=== PATIENT | female | born 1940 | race Caucasian/White ===

== ENCOUNTER 2017-08-21 12:43 | Emergency (ER) | payer MEDICARE, BC ==
[~2017-08-21] VITALS: Ht 170.2 cm; Wt 90.7 kg
[~2017-08-21 12:43] MED LIST: LASIX40 MG PO; METOPROLOL SUCC50 MG PO; MONTELUKAST SOD10 MG PO; PHENTERMINE H37.5 MG PO; POTASSIUM CHLO10 ME1 PO
--- OUTSIDE RECORDS SUMMARY | 2017-08-21 12:46 | XMS REPORT | Clinical Summary ---
Author Author [facility] Organization [facility] Address Unknown Phone Unavailable Care Team Providers Care Oil Process [place] Name Role Phone Maggie Barnes MD PCP Allergies Active Allergy Reactions Severity Noted Date Comments No Known Drug Allergies Other (See Comments) 08/04/2015 Current Medications Prescription Sig. Disp. Refills Start End Date Status Date metoprolol succinate XL Take 50 mg by mouth Active (TOPROL-XL) 50 mg 24 hr daily. tablet potassium chloride Take 10 mEq by mouth 2 Active (K-DUR,KLOR-CON) 10 MEQ (two) times a day. CR tablet PHENTERMINE HCL Take 37.5 mg by mouth Active (PHENTERMINE ORAL) every other day. losartan (COZAAR) 25 MG Take 25 mg by mouth Active tablet daily. furosemide (LASIX) 40 mg Take 40 mg by mouth 2 Active tablet (two) times a day. enoxaparin (LOVENOX) 30 Inject 0.3 mL (30 mg 9 mL 0 07/24/19 Active mg/0.3 mL syringe total) under the skin 18 18 daily for 30 days. ferrous sulfate 325 (65 Take 1 tablet (325 mg 60 tablet 0 07/24/19 08/23/19 Active FE) MG tablet total) by mouth 2 (two) 18 18 times a day with meals for 30 days. sennosides-docusate Take 2 tablets by mouth 2 120 tablet 0 07/24/19 08/23/19 Active sodium (SENOKOT-S) 8.6-50 (two) times a day for 30 18 18 mg per tablet days. polyethylene glycol Take 17 g by mouth 2 60 packet 0 07/24/19 20 Active (MIRALAX) 17 gram packet (two) times a day for 30 18 18 days. bisacodyl (DULCOLAX) 5 mg Take 1 tablet (5 mg 30 tablet 0 07/24/19 08/23/19 Active EC tablet total) by mouth 2 (two) 18 18 times a day as needed for constipation for up to 30 days. bisacodyl (DULCOLAX) 10 Insert 1 suppository (10 30 0 07/24/1908/23 Active mg suppository mg total) into the rectum suppository 18 18 daily as needed for constipation for up to 30 days. cephalexin (KEFLEX) 500 Take 1 capsule (500 mg 20 capsule 0 08/20/19 08/25/19 Active MG capsule total) by mouth 4 (four) 18 18 times a day for 5 days. furosemide (LASIX) 40 MG Take 40 mg by mouth once 2 09/29/19 Discontin tablet daily. 16 17 ued famotidine (PEPCID) 20 MG Take 1 tablet (20 mg 60 tablet 0 02/03/20 03/04/20 tablet total) by mouth 2 (two) 17 17 times a day for 30 days. aspirin (ECOTRIN) 81 MG Take 1 tablet (81 mg 30 tablet 0 03/12/20 enteric coated tablet total) by mouth daily for 17 17 30 days. benzonatate (TESSALON) Take 1 capsule (100 mg 20 capsule 0 04/20/20 05/20/20 100 MG capsule total) by mouth every 6 17 17 (six) hours as needed for cough for up to 30 days. aspirin (ECOTRIN) 81 MG Take 1 tablet (81 mg 30 tablet 0 04/20/20 enteric coated tablet total) by mouth daily for 17 17 30 days. furosemide (LASIX) 40 mg Take 1 tablet (40 mg 60 tablet 0 04/20/20 05/20/20 tablet total) by mouth 2 (two) 17 17 times a day for 30 days. aspirin (ECOTRIN) 325 MG Take 325 mg by mouth 2 07/27/19 Discontin enteric coated tablet (two) times a day. 18 ued ferrous gluconate Take 324 mg by mouth 2 07/27/19 Discontin (FERGON) 324 MG tablet (two) times a day. 18 ued Active Problems Problem Noted Date Postoperative infection 08/15/2017 Chest pain 08/02/2017 Fracture of left tibia 07/22/2017 Congestive heart failure 04/16/2017 CAD (coronary artery disease) 03/11/2017 Aneurysm of thoracic aorta 08/04/2015 Aortic valve disorder 08/04/2015 Bronchitis 08/04/2015 Congenital insufficiency of aortic valve 08/04/2015 Depression 08/04/2015 Disorder of rotator cuff 08/04/2015 Dyspnea 08/04/2015 Environmental allergies 08/04/2015 Essential hypertension 08/04/2015 Hiatal hernia 08/04/2015 Hypokalemia 08/04/2015 Orthopnea 08/04/2015 Osteoporosis 08/04/2015 Skin lesion 08/04/2015 Encounters Date Type Specialty Care Team Description 08/15/2017 [facility] Orthopedic Surgery Mitesh Schrader DO Postoperative infection, - Encounter Denisha Garber MD initial encounter 08/20/2017 (Primary Dx) 08/05/2017 Telephone Gastroenterology Vannesa High RN 08/02/2017 Emergency General Internal Medicine Ping Chavis-Iris Simmons MD Chest pain, unspecified - Khai Mo MD type (Primary Dx); 08/05/2017 Thoracic aortic aneurysm without rupture 07/21/2017 [facility] Orthopedic Surgery Marvin Barrios MD - Encounter 07/27/2017 07/21/2017 Anesthesia Orthopedic Surgery Anni King MD Event 07/21/2017 Procedure Pass Orthopedic Surgery 07/21/2017 Surgery Orthopedic Surgery Marvin Barrios MD ORIF TIBIAL FRACTURE 07/10/2017 Telephone Gastroenterology Emil Whitaker MD 05/05/2017 Patient Quality Va Ann, RN Outreach 05/05/2017 Telephone Cardiology Tray Penn, AMADO condition (check on patient condition) 04/27/2017 Telephone Cardiology Tray Penn, AMADO Appointment 04/21/2017 Patient Quality Oksana Jimenez RN Outreach 04/20/2017 Telephone Internal Medicine Kari Edgar MA 04/20/2017 Orders Only Cardiology See Keys Acute on chronic AMADO Campos diastolic heart failure (Primary Dx) 04/17/2017 Orders Only Quality Carolee Dean Congestive heart failure, unspecified congestive heart failure chronicity, unspecified congestive heart failure type (Primary Dx) 04/16/2017 Hospital Cardiology Niurka Stevenson MD Congestive heart failure, - Encounter You Lopez MD unspecified congestive 04/21/2017 Omid Tobin, heart failure chronicity, MD unspecified congestive Kiko Chavira MD heart failure type (Primary Dx); Diarrhea, unspecified type; Dyspnea, unspecified type; Chest pain in adult 04/02/2017 Telephone Internal Medicine Donovan Barnes MD 03/11/2017 Hospital Cardiology Ifeanyi Crystal MD Abnormal cardiovascular - Encounter stress test 03/12/2017 03/11/2017 Procedure Pass Procedural Cardiology 03/11/2017 Surgery Procedural Cardiology Ifeanyi Crystal MD Cv selective coronary angiography [05316 (CPT )] 02/02/2017 Emergency Emergency Medicine Braden Dunne MD Hiatal hernia (Primary Dx) 12/22/2016 Lab Lab Ifeanyi Crystal MD Shortness of breath (Primary Dx); Essential hypertension, malignant; Atherosclerosis of [place] coronary artery, angina presence unspecified, unspecified whether [place] or transplanted heart 12/22/2016 Hospital Procedural Cardiology Ifeanyi Crystal MD Edema, unspecified type Encounter 12/19/2016 Transcribe Access Ifeanyi Crystal MD Edema, unspecified type Orders (Primary Dx) after 08/20/2016 Immunizations Name Dates Previously Given Next Due FLUCELVAX QUAD PF (0.5mL 03/12/2017 syringe) FLUZONE HIGH-DOSE PF 04/25/2015 Pneumococcal Conjugate 12/19/2014 13-Valent Pneumococcal 06/29/2010 Polysaccharide Family History Medical History Relation Name Comments Breast cancer Mother Hypertension Mother Stroke Mother Breast cancer Sister Relation Name Status Comments Mother Sister Social History Tobacco Use Types Packs/Day Years Used Date Former Smoker Quit: 06/29/1971 Smokeless Tobacco: Never Used Tobacco Cessation: Counseling Given: No Alcohol Use Drinks/Week oz/Week Comments No 2 Glasses of 1.2 a month wine Sex Assigned at Date Recorded Not on file Last Filed Vital Signs Vital Sign Reading Time Taken Blood Pressure 138/72 08/20/2017 3:42 AM [employer]ICK WORK[employer] Pulse 69 08/20/2017 3:42 AM [employer]ICK WORK[employer] Temperature 36.3 C (97.3 F) 08/20/2017 3:42 AM [employer]ICK WORKER Respiratory Rate 16 08/20/2017 3:42 AM [employer] STICK WORKER Oxygen Saturation 93% 08/20/2017 3:42 AM H[employer]ICK WORKER Inhaled Oxygen - - Concentration Weight 96.2 kg (212 lb) 08/02/2017 4:30 PM H[employer] STICK WORKER Height 170.2 cm (5' 7") 08/15/2017 6:10 PM [employer]ICK WORKER Body Mass Index 33.2 08/02/2017 4:30 PM H[employer] STICK WORKER Plan of Treatment Health Maintenance Due Date Last Done Comments ZOSTER VACCINE 2002 MAMMOGRAM 11/01/2011 10/31/2009, 08/02/2008, 08/02/2008 PNEUMOCOCCAL Completed 06/29/2010 POLYSACCHARIDE VACCINE AGE 65 AND OVER PNEUMOCOCCAL-13 Completed 12/19/2014 INFLUENZA VACCINE Completed 03/12/2017, 04/25/2015 Implants Implanted Type Area Jai Alai Player Device Expiration Model / Identifier Date Serial / Lot 3.5mm Lcp Medial Proximal Tibia IPM Left: SYNTHES TRAUMA [id number] / Plate 4h/Left 93mm - [id number] IMPLANT Tibia / Implanted: Qty: 1 on 07/21/2017 by DEVICES Marvin Barrios MD Screw Bone Vinay Slf-Tap W/ Sm Hxgnl Orthopedic Left: SYNTHES TRAUMA 204 830 / Socket Ss 3.5x30mm - [id number] Trauma Tibia AND RECON / Implanted: Qty: 3 on 07/21/2017 by Implants Marvin Barrios MD Screw Bone Concl P-Thrd Slf-Tap Ss Orthopedic Left: SYNTHES TRAUMA 212 425 / 3.5x65mm - [id number] Trauma Tibia AND RECON / Implanted: Qty: 2 on 07/21/2017 by Implants Marvin Barrios MD Screw Bone Lkng Slf-Tap W/ Strdrv Orthopedic Left: SYNTHES TRAUMA 212 121 / Recs Ss 3.5x50mm - [id number] Trauma Tibia AND RECON / Implanted: Qty: 1 on 07/21/2017 by Implants Marvin Barrios MD Screw Bone Lkng Slf-Tap W/ Strdrv Orthopedic Left: SYNTHES TRAUMA 212 124 / Recs Ss 3.5x60mm - [id number] Trauma Tibia AND RECON / Implanted: Qty: 1 on 07/21/2017 by Implants Marvin Barrios MD Screw Bone Lkng Slf-Tap W/ Strdrv Orthopedic Left: SYNTHES TRAUMA 212 125 / Ss 3.5x65mm - [id number] Trauma Tibia AND RECON / Implanted: Qty: 1 on 07/21/2017 by Implants Marvin Barrios MD Reprocessed, Synthes, 2.8mm X Surgical N/A: N/A ISABEL 324.214 / 200mm, 100mm Calibration, Synthes Drills & SUSTAINABILITY / Drill Bit, Quick Coupling Accessorie SOLUTIONS Implanted: Qty: 1 on 07/21/2017 by s (FORMERLY Marvin Barrios MD ASCENT) Immobilizer Knee Countoured Foam Xl Surgical N/A: N/A DEROYAL [id number] / Canvas 24in - [id number] Implants; INDUSTRIES / Implanted: Qty: 1 on 07/21/2017 by Expanders; Marvin Barrios MD Extenders; Surgical Wires Explanted Type Area Jai Alai Player Device Expiration Model / Identifier Date Serial / Lot Screw Bone Vinay Slf-Tap W/ Sm Hxgnl Orthopedic N/A: N/A SYNTHES TRAUMA 204 824 / Socket Ss 3.5x24mm - [id number] Trauma AND RECON / Implanted: 07/21/2017 (Quantity not Implants on file) Explanted: Qty: 1 on 07/21/2017 Procedures Procedure Name Priority Date/Time Associated Diagnosis Comments HC CATH DUAL LUMEN PICC Routine 08/17/2017 Results for this 11:59 AM H[employer] STICK WORKER procedure are in the results section. HC US GUIDED VASCULAR Routine 08/17/2017 Results for this ACCESS 11:59 AM H[employer] STICK WORKER procedure are in the results section. HC CVL PICC INSERT 5 YRS Routine 08/17/2017 Results for this OR > 11:59 AM H[employer] STICK WORKER procedure are in the results section. ECHOCARDIOGRAM 2D Routine 08/03/2017 Results for this COMPLETE W MMODE SPECTRAL 7:00 AM H[employer] STICK WORKER procedure are in the COLOR DOPPLER (61411) results section. WY AN ELECTIVE Routine 07/21/2017 ENDOTRACHEAL AIRWAY 3:32 PM [employer]ICK WORKER Procedure Note - Jen Lemos CRNA - 07/21/2017 3:26 PM H[employer] STICK WORKER Airway Date/Time: 07/21/2017 2:47 PM Performed by: JEN LEMOS Authorized by: TONYA FLETCHER Location: OR Urgency: Elective Difficult Airway: No Preoxygena isreal with 100% O2: Yes C-spine Precaution s Maintained Throughout : Yes Mask Ventilatio n: Easy mask Final Airway Type: Endotrache al airway Final Endotrache al Airway: ETT Cuffed: Yes Technique Used: Direct laryngosco py Devices/Me thods Used in Placement: Intubatin g stylet Insertion Site: Oral Blade Type: Selina Laryngosco pe Blade/Vide olaryngosc ope Blade Size: 3 ETT Size (mm): 7.0 Cuff at minimum occlusion pressure: Yes Measured from: Lips ETT to Lips (cm): 21 Placement Verified by: CO2 detection and direct visualizat ion Laryngosco pic view: Grade I - full view of glottis Rapid Sequence Induction (RSI): No Number of Attempts at Approach: 1 ORIF TIBIAL FRACTURE 07/21/2017 fracture of left knee 2:00 PM H[employer] STICK WORKER CONSULT CARDIAC REHAB Routine 04/21/2017 PHASE 1 11:22 AM CDT CV STRESS TEST NUCLEAR Routine 04/21/2017 Results for this CARDIO 9:28 AM CDT procedure are in the results section. ECHOCARDIOGRAM 2D Routine 04/17/2017 Results for this COMPLETE W MMODE SPECTRAL 10:33 AM CDT procedure are in the COLOR DOPPLER (83271) results section. CV SELECTIVE CORONARY Routine 03/11/2017 Abnormal cardiovascular Results for this ANGIOGRAPHY 1:57 PM CDT stress test procedure are in the results section. after 08/20/2016 Results * Smear review (08/20/2017 5:00 AM) Only the most recent of 12 results within the time period is included. Component Value Ref Range Platelet slide review Nghia adequate Ovalocytes Moderate Specimen Performing Laboratory [facility] DEPARTMENT OF PATHOLOGY AND GENOMIC MEDICINE [address] [place] [address] * CBC with platelet and differential (08/20/2017 5:00 AM) Only the most recent of 23 results within the time period is included. Component Value Ref Range WBC 6.55 4.50 - 11.00 k/uL RBC 4.46 4.20 - 5.50 m/uL HGB 10.9 (L) 12.0 - 16.0 g/dL HCT 37.8 37.0 - 47.0 % MCV 84.8 82.0 - 100.0 fL MCH 24.4 (L) 27.0 - 34.0 pg MCHC 28.8 (L) 31.0 - 37.0 g/dL RDW - SD SEE COMMENT 37.0 - 55.0 fL Comment: Footnote--------- Unable to report RDW due to abnormal RBC distribution. MPV 11.0 8.8 - 13.2 fL Platelet count 251 150 - 400 k/uL Nucleated RBC 0.00 /100 WBC Neutrophils 57.7 39.0 - 69.0 % Lymphocytes 26.0 25.0 - 45.0 % Monocytes 12.1 (H) 0.0 - 10.0 % Eosinophils 3.2 0.0 - 5.0 % Basophils 0.8 0.0 - 1.0 % Immature granulocytes 0.2Comment: "Immature granulocytes" 0.0 - 1.0 % (promyelocytes, myelocytes, metamyelocytes) Specimen Performing Laboratory Blood [facility] DEPARTMENT OF PATHOLOGY AND [place] [id number] * Estimated GFR (08/20/2017 4:00 AM) Only the most recent of 26 results within the time period is included. Component Value Ref Range GFR Non Af Amer >90 mL/min/1.73 m2 GFR Af Amer >90 mL/min/1.73 m2 Comment: Chronic kidney disease: <60 mL/min/1.73m2 Kidney failure: <15 mL/min/1.73m2 The estimated GFR is calculated from the IDMS-traceable Modification of Diet in Renal Disease Equation. The accuracy of the calculation is poor when the creatinine is normal. Calculated values >90 mL/min/1.73m2 are not reported. This equation has not been validated in children (<18 years), women, the elderly (>70 years), or ethnic groups other than Caucasians and Americans. Specimen Performing Laboratory Plasma specimen [facility] DEPARTMENT OF PATHOLOGY AND GENOMIC MEDICINE [address] [place] [address] * Magnesium level (08/20/2017 4:00 AM) Only the most recent of 10 results within the time period is included. Component Value Ref Range Magnesium 2.1 1.6 - 2.4 mg/dL Specimen Performing Laboratory Plasma specimen [facility] DEPARTMENT OF PATHOLOGY AND [address] [address] * Basic metabolic panel (08/20/2017 4:00 AM) Only the most recent of 19 results within the time period is included. Component Value Ref Range Sodium 143 135 - 148 mEq/L Potassium 3.9 3.5 - 5.0 mEq/L Chloride 99 98 - 112 mEq/L CO2 31 24 - 31 mEq/L Anion gap 13 7 - 15 mEq/L Comment: Starting from September , anion gap calculation no longer incorporates potassium. Please note the change. BUN 18 8 - 23 mg/dL Creatinine 0.5 0.5 - 0.9 mg/dL Glucose 73 65 - 99 mg/dL Calcium 9.4 8.8 - 10.2 mg/dL Specimen Performing Laboratory Plasma specimen [facility] DEPARTMENT OF PATHOLOGY AND GENOMIC MEDICINE [address] [place] [address] * XR Knee 3 Vw Left (08/19/2017 7:06 PM) Only the most recent of 2 results within the time period is included. Specimen Performing Laboratory [facility] [address] [place] [address] Narrative EXAMINATION:XR KNEE 3 VW LEFT CLINICAL HISTORY:s p ORIF left tibia COMPARISON:None available at this time. IMPRESSION: Extensive postoperative changes involving the proximal tibia, distal femur and patella. There is good anatomic alignment. Old fracture of the proximal fibula with callus formation. No acute fractures present [facility]-[id number] Procedure Note Interface, Radiology Results Incoming - 08/19/2017 7:15 PM H[employer] STICK WORKER EXAMINATION: XR KNEE 3 VW LEFT CLINICAL HISTORY: s p ORIF left tibia COMPARISON: None available at this time. IMPRESSION: Extensive postoperative changes involving the proximal tibia, distal femur and patella. There is good anatomic alignment. Old fracture of the proximal fibula with callus formation. No acute fractures present [facility]-[id number] * ECG 12 lead (08/19/2017 4:06 PM) Only the most recent of 8 results within the time period is included. Component Value Ref Range Ventricular rate 69 Atrial rate 69 WY interval 204 QRSD interval 84 QT interval 398 QTC interval 426 P axis 1 74 QRS axis 1 22 T wave axis 76 EKG impression Normal sinus rhythm-Nonspecific ST and T wave abnormality-(lateral leads)-Otherwise normal ECG-In automated comparison with ECG of 15-AUG-2017 18:53,-premature atrial complexes are no longer [id number]-[id number]-[id number] change in ST segment in Lateral leads- Specimen Performing Laboratory [facility] MUSE [address] [place] [address] * Vancomycin level, trough (08/17/2017 11:40 PM) Only the most recent of 2 results within the time period is included. Component Value Ref Range Vancomycin, trough 23.9 (HH) 10.0 - 20.0 ug/mL Comment: Therapeutic Ranges: Peak 30.0 - 40.0 ug/mL Trough 10.0 - 20.0 ug/mL VANCT results called to and read back by ADAMARIS CASTILLO/Thuan at 00:53 08/18/2017 by SCL. Specimen Performing Laboratory Serum [facility] DEPARTMENT OF PATHOLOGY AND GENOMIC MEDICINE [address] [place] [address] * XR Picc Chest Portable (08/17/2017 12:27 PM) Specimen Performing Laboratory [facility] [address] [place] [address] Narrative EXAMINATION:XR PICC CHEST PORTABLE CLINICAL HISTORY:T81.4XXA Infection following a procedureinitial encounter, intermediate project manager antibiotics COMPARISON:August 15, 2017 IMPRESSION: Right PICC line courses to the right H. James. Cardiomegaly, mild vascular congestion, and basilar atelectasis. No significant pleural effusion or pneumothorax. Aorta is calcified and likely ectatic. [facility]-[id number] Procedure Note Interface, Radiology Results Incoming - 08/17/2017 12:34 PM H[employer] STICK WORKER EXAMINATION: XR PICC CHEST PORTABLE CLINICAL HISTORY: T81.4XXA Infection following a procedure initial encounter, [facility] antibiotics COMPARISON: August 15, 2017 IMPRESSION: Right PICC line courses to the right H. James. Cardiomegaly, mild vascular congestion, and basilar atelectasis. No significant pleural effusion or pneumothorax. Aorta is calcified and likely ectatic. [facility]-[id number] * PICC INSERTION (08/17/2017 11:59 AM) Narrative Gi Cherry 08/17/2017 12:18 PM PICC insertion Date/Time: 08/17/2017 12:15 PM Performed by: TYLER MERRITT Authorized by: DENISHA GARBER Consent: Consent obtained:Verbal Consent given by:Patient Risks discussed: arterial puncture, incorrect placement, nerve damage, bleeding, infection, superficial thrombus and deep vein thrombus Alternatives discussed:Delayed treatment [place] protocol: Procedure explained and questions answered to patient or proxy's satisfaction: yes Relevant documents present and verified: yes Test results available and properly labeled: yes Imaging studies available: yes Required blood products, implants, devices, and special equipment available: no Site/side marked: yes Immediately prior to procedure, a time out was called: yes Patient identity confirmed:Verbally with patient, arm band, provided demographic data and hospital-assigned identification number Pre-procedure details: Hand hygiene: Hand hygiene performed prior to insertion Sterile barrier technique: All elements of maximal sterile technique followed Skin preparation:2% chlorhexidine Skin preparation agent: Skin preparation agent completely dried prior to procedure Anesthesia (see MAR for exact dosages): Anesthesia method:Local infiltration Local anesthetic:Lidocaine 1% w/o epi Route of administration:Subcutaneous PICC Line Placement Details (Will create an LDA): Patient position:Flat Indication:Known intermediate project manager IV therapy Location:Right brachial Device Type:Non-valved Catheter size:5 Fr PICC Characteristics: Catheter Brand:Angiodynamic Powerpicc External Catheter Length (cm):2 Internal Catheter Length (cm):42 Total Catheter Length (cm):44 Catheter Lot Number:[id number] Catheter Expiration Date:03/28/2019 Procedure Details: Landmarks identified: yes Ultrasound guidance: yes Sterile ultrasound techniques: Sterile gel and sterile probe covers were used Number of attempts:1 Number of PICC kits used during procedure:1 Purpose of procedure:PICC Placement Successful PICC Placement: Yes Patency/Placement:Flushes without difficulty, flushed with 10 mL normal saline, positive blood return, x-ray placement verified and injection cap placed PICC placed utlizing ultrasound-guided Modified Seldinger Technique: Yes Dressing/Securement:Catheter securement device and antimicrobial dressing applied Blood Loss Amount:Less than 20 mL Post-Procedure Details: Post-procedure:Dressing applied Tip placement confirmed by chest x-ray: Yes Patient tolerance of procedure:Tolerated well, no immediate complications * Lactic acid level, SEPSIS - Now and repeat 2x every 3 hours (08/16/2017 2:00 AM) Only the most recent of 3 results within the time period is included. Component Value Ref Range Lactic acid 0.8 0.5 - 2.2 mmol/L Specimen Performing Laboratory Blood [facility] DEPARTMENT OF PATHOLOGY AND GENOMIC MEDICINE [address] [place] [address] * Troponin (08/16/2017 2:00 AM) Only the most recent of 13 results within the time period is included. Component Value Ref Range Troponin <0.30 0.00 - 0.30 ng/mL Comment: 0.30 - 1.49 ng/ml May indicate increased risk of acute coronary syndrome. >=1.5 ng/ml Consistent with acute myocardial infarction. The diagnostic value of a single normal or non-diagnostic result is questionable. Serial samples at 2-6 hour intervals are required to rule out acute myocardial injury. Specimen Performing Laboratory Blood [facility] DEPARTMENT OF PATHOLOGY AND [address] [address] * Partial thromboplastin time, activated (08/16/2017 2:00 AM) Only the most recent of 4 results within the time period is included. Component Value Ref Range PTT 31.1 23.0 - 36.0 sec Comment: PTT therapeutic range for unfractionated heparin is 61.0-112.0 seconds which corresponds to Anti-Xa 0.3-0.7 U/ml. Specimen Performing Laboratory Blood [facility] DEPARTMENT OF PATHOLOGY AND [address] [address] * Prothrombin time with INR (08/16/2017 2:00 AM) Only the most recent of 6 results within the time period is included. Component Value Ref Range Prothrombin time 13.8 12.0 - 15.0 sec INR 1.0 Comment: The International Normalized Ratio (INR) is a therapeutic monitoring tool for patients who are stable on oral anticoagulant therapy. An INR of 2.0-3.0 is suggested for deep vein thrombosis/pulmonary embolism. Specimen Performing Laboratory Blood [facility] DEPARTMENT OF PATHOLOGY AND [address] [address] * CT Angiogram Pe Chest (08/15/2017 9:40 PM) Only the most recent of 3 results within the time period is included. Specimen Performing Laboratory [address] [address] Narrative EXAMINATION: CT ANGIOGRAM PE CHEST CLINICAL HISTORY: r o PE TECHNIQUE: CT angiographic images of the chest were obtained during intravenous administration of iodinated contrast. Computerized reformatted images and 3-D MIP images were also obtained and archived (CT pulmonary embolus protocol). CT imaging was performed with iterative reconstruction technique and/or automated exposure control to reduce radiation dose. COMPARISON: 08/03/2017 IMPRESSION: Mild bibasilar atelectasis. No consolidations, effusions, or pneumothorax. Heart size is normal. Coronary artery calcifications are seen. No mediastinal or hilar lymphadenopathy. The main pulmonary artery is dilated to 4.4 cm, compatible with pulmonary arterial hypertension. No large main branch or saddle region embolus is seen. Evaluation of segmental and subsegmental branches is significantly limited secondary to mixing artifact and motion. Short-term follow-up evaluation or VQ scan can be performed , since a distal pulmonary embolus cannot be excluded. Ascending aortic aneurysm is identified measuring 4.8 cm. Common origin is seen of left common carotid artery and right brachiocephalic artery. No dissection or pseudoaneurysm. Tortuous appearance of the thoracic aorta. Simple cyst is seen of right kidney. Large hiatal hernia. No acute osseous abnormalities. Conclusion: Limited evaluation. No large main branch or saddle region embolus is seen. Evaluation of segmental and subsegmental branches is significantly limited secondary to mixing artifact and motion. Short-term follow-up evaluation or VQ scan can be performed, since a distal pulmonary embolus cannot be excluded. Ascending aortic aneurysm is identified, measuring up to 4.8 cm. Large hiatal hernia, containing much of the stomach. [facility]-[id number] Procedure Note [facility], Radiology Results Incoming - 08/15/2017 10:02 PM H[employer] WORK[employer] EXAMINATION: CT ANGIOGRAM PE CHEST CLINICAL HISTORY: r o PE TECHNIQUE: CT angiographic images of the chest were obtained during intravenous administration of iodinated contrast. Computerized reformatted images and 3-D MIP images were also obtained and archived (CT pulmonary embolus protocol). CT imaging was performed with iterative reconstruction technique and/or automated exposure control to reduce radiation dose. COMPARISON: 08/03/2017 IMPRESSION: Mild bibasilar atelectasis. No consolidations, effusions, or pneumothorax. Heart size is normal. Coronary artery calcifications are seen. No mediastinal or hilar lymphadenopathy. The main pulmonary artery is dilated to 4.4 cm, compatible with pulmonary arterial hypertension. No large main branch or saddle region embolus is seen. Evaluation of segmental and subsegmental branches is significantly limited secondary to mixing artifact and motion. Short-term follow-up evaluation or VQ scan can be performed , since a distal pulmonary embolus cannot be excluded. Ascending aortic aneurysm is identified measuring 4.8 cm. Common origin is seen of left common carotid artery and right brachiocephalic artery. No dissection or pseudoaneurysm. Tortuous appearance of the thoracic aorta. Simple cyst is seen of right kidney. Large hiatal hernia. No acute osseous abnormalities. Conclusion: Limited evaluation. No large main branch or saddle region embolus is seen. Evaluation of segmental and subsegmental branches is significantly limited secondary to mixing artifact and motion. Short-term follow-up evaluation or VQ scan can be performed, since a distal pulmonary embolus cannot be excluded. Ascending aortic aneurysm is identified, measuring up to 4.8 cm. Large hiatal hernia, containing much of the stomach. [facility]-[id number] * CT Lower Extremity Wo Contrast Left (08/15/2017 9:40 PM) Specimen Performing Laboratory [facility] [address] [place] [address] Narrative Examination: CT LOWER EXTREMITY WO CONTRAST LEFT Clinical history: post op infection Comparison: 11/07/2009 Technique: CT left lower extremity without contrast. Coronal and sagittal reconstructions were created and reviewed. 3-D bony reconstructions were created and reviewed. Impression: Patient is status post repair of chronic fracture of the femur, with casa and screws in place. Postoperative appearance of the patella is seen. Plate and screw construct is seen of the proximal diaphysis of the tibia, fixing lateral tibial plateau fracture. Some callus formation is seen about the fracture site of the tibia, without complete union. Old fracture of the proximal diaphysis of the fibula is identified. Fusion of the distal tibia and talus is seen. Osteopenia of the osseous structures is identified. Subcutaneous edema and skin thickening is seen of the left lower extremity anteriorly, and correlation for cellulitis is recommended. No fluid collections are identified. Some ulceration is seen at the skin surface. Marked skin thickening and edema is seen of the left ankle and foot. Diffuse fatty replacement and atrophy of the left lower extremity musculature is identified. Conclusion: No acute fractures or dislocations. No osseous destruction is seen to suggest osteomyelitis on this exam. Marked subcutaneous edema and skin thickening is seen of the left ankle and foot. Additional skin thickening and edema is seen of the soft tissues anterior to the tibia, with areas of ulceration. This findings are compatible with cellulitis. No fluid collections are seen. [facility]-[id number] Procedure Note Interface, Radiology Results - 08/15/2017 10:45 PM [employer] Examination: CT LOWER EXTREMITY WO CONTRAST LEFT Clinical history: post op infection Comparison: 11/07/2009 Technique: CT left lower extremity without contrast. Coronal and sagittal reconstructions were created and reviewed. 3-D bony reconstructions were created and reviewed. Impression: Patient is status post repair of chronic fracture of the femur, with casa and screws in place. Postoperative appearance of the patella is seen. Plate and screw construct is seen of the proximal diaphysis of the tibia, fixing lateral tibial plateau fracture. Some callus formation is seen about the fracture site of the tibia, without complete union. Old fracture of the proximal diaphysis of the fibula is identified. Fusion of the distal tibia and talus is seen. Osteopenia of the osseous structures is identified. Subcutaneous edema and skin thickening is seen of the left lower extremity anteriorly, and correlation for cellulitis is recommended. No fluid collections are identified. Some ulceration is seen at the skin surface. Marked skin thickening and edema is seen of the left ankle and foot. Diffuse fatty replacement and atrophy of the left lower extremity musculature is identified. Conclusion: No acute fractures or dislocations. No osseous destruction is seen to suggest osteomyelitis on this exam. Marked subcutaneous edema and skin thickening is seen of the left ankle and foot. Additional skin thickening and edema is seen of the soft tissues anterior to the tibia, with areas of ulceration. This findings are compatible with cellulitis. No fluid collections are seen. [facility]-[id number] * CT Abdomen Pelvis Wo Contrast (08/15/2017 9:40 PM) Specimen Performing Laboratory [facility] [address] [place] [address] ABDOMEN PELVIS WO CONTRAST CLINICAL INDICATION:abdominal pain TECHNIQUE: Multidetector CT of the abdomen and pelvis was performed following intravenous administration of iodinated contrast with multiplanar reformats. CT scans are performed using radiation dose reduction techniques (iterative reconstruction and/or automated exposure control). Technical factors are evaluated and adjusted to ensure appropriate moderation of exposure. Automated dose management technology is applied to adjust radiation exposure while achieving a diagnostic quality image. COMPARISON:CT 09/01/2011. FINDINGS: Lung bases:Reported separately. Liver:Normal. Gallbladder and biliary:Gallbladder is normally distended. Common bile duct is not dilated. Pancreas:Severely atrophic with fatty replacement. Spleen:Normal. Gastrointestinal: Large hiatal hernia. Sigmoid diverticulosis. Large and small bowel are normal in caliber. Appendix is not visualized. No focal inflammatory changes within the right lower quadrant of the abdomen. Adrenals:Normal. Kidneys and ureters: Renal cysts/hypodensities measuring up to 3.1 cm in the right kidney, incompletely characterized. No hydronephrosis. Urinary bladder:Normal. Lymph nodes:No enlarged lymph nodes in the abdomen or pelvis. Peritoneum:No ascites or free air. Vascular:Moderate atherosclerotic changes of the abdominal aorta and major branch vessels. Evaluation of vessel lumens is limited due to lack of IV contrast. Reproductive organs:Uterus is absent. Unremarkable adnexae. Abdominal wall: Mild diffuse subcutaneous soft tissue edema. Severe atrophy and fatty replacement of visualized left lower extremity musculature. Bones:Diffuse osteopenia. Partially visualized hardware in the left proximal femur. Mild age-indeterminate though likely chronic compression deformities of the T12, L1, L2, L3 vertebral bodies. IMPRESSION: 1. Large hiatal hernia. 2. Colonic diverticulosis without diverticulitis. [facility]-[id number] Procedure Note [facility], Radiology Results Incoming - 08/15/2017 10:12 [address]ER CT ABDOMEN PELVIS WO CONTRAST CLINICAL INDICATION: abdominal pain TECHNIQUE: Multidetector CT of the abdomen and pelvis was performed following intravenous administration of iodinated contrast with multiplanar reformats. CT scans are performed using radiation dose reduction techniques (iterative reconstruction and/or automated exposure control). Technical factors are evaluated and adjusted to ensure appropriate moderation of exposure. Automated dose management technology is applied to adjust radiation exposure while achieving a diagnostic quality image. COMPARISON: CT 09/01/2011. FINDINGS: Lung bases: Reported separately. Liver: Normal. Gallbladder and biliary: Gallbladder is normally distended. Common bile duct is not dilated. Pancreas: Severely atrophic with fatty replacement. Spleen: Normal. Gastrointestinal: Large hiatal hernia. Sigmoid diverticulosis. Large and small bowel are normal in caliber. Appendix is not visualized. No focal inflammatory changes within the right lower quadrant of the abdomen. Adrenals: Normal. Kidneys and ureters: Renal cysts/hypodensities measuring up to 3.1 cm in the right kidney, incompletely characterized. No hydronephrosis. Urinary bladder: Normal. Lymph nodes: No enlarged lymph nodes in the abdomen or pelvis. Peritoneum: No ascites or free air. Vascular: Moderate atherosclerotic changes of the abdominal aorta and major branch vessels. Evaluation of vessel lumens is limited due to lack of IV contrast. Reproductive organs: Uterus is absent. Unremarkable adnexae. Abdominal wall: Mild diffuse subcutaneous soft tissue edema. Severe atrophy and fatty replacement of visualized left lower extremity musculature. Bones: Diffuse osteopenia. Partially visualized hardware in the left proximal femur. Mild age-indeterminate though likely chronic compression deformities of the T12, L1, L2, L3 vertebral bodies. IMPRESSION: 1. Large hiatal hernia. 2. Colonic diverticulosis without diverticulitis. [facility]-[id number] * PV duplex venous lower extremity (08/15/2017 8:30 PM) Only the most recent of 5 results within the time period is included. Specimen Performing Laboratory [facility] [address] [place] [address] Narrative Vascular Ultrasound Laboratory Lower Extremity Venous Report [id number] [place] [address] Pat.Name:ZORAIDA HSU Pat.ID:[id number] St.Date: 08/15/2017 Refer.MD:PHYSICIAN, EMERGENCY, MD Exam Time: 8:13:00 PMStudy Type:LE Venous Height:67inDOBAge:1939,77Y Sex: FEMALESonogrphr: Darinel Laws Candi Room:[facility]: [facility] - 4: [id number] Echo Event ID:[id number] Order ID:[id number] Reason for Study:Worsening redness, pain, and drainage of LLE at surgical site. s/p ORIF Tibial fracture on 07/21/2017 Race:C SUMMARY: DUPLEX SCAN OBSERVATIONS Deep VeinsSuperficial Veins RightLeft RightLeft EIVGSV (prox) Normal CFV Normal Normal (above knee) Femoral Normal GSV (dist)Not Visualized Profunda Normal (below knee) Popliteal Normal PT (prox) Not visualizedSSV PT (dist) Normal Peroneal Not Visualized LEFT: There is normal compressibility with no evidence of echogenic material noted within the lumen of the visualized veins. Colorflow and Doppler signals are normal. Limited exam due to edema and body habitus. PRELIMINARY FINDINGS 1. Normal venous duplex exam of the visualized veins. Preliminary results given to DO Mitesh @ 2039 PHYSICIAN INTERPRETATION 1.Venous examination of the left lower extremity and right groin demonstrates no evidence of venous thrombosis. Signed 08/16/2017 02:16 AM Jarod Miranda MD Procedure Note Interface, Radiology Results In - 08/16/2017 2:17 AM [facility] Vascular Ultrasound Laboratory Lower Extremity Venous Report [id number] [address] Pat.Name: ZORAIDA HSU.ID: [id number] St.Date: 08/15/2017 Refer.MD: PHYSICIAN, EMERGENCY, MD Exam Time: 8:13:00 PM Study Type:LE Venous Height: 67in Age: 11 1940,77Y Sex: FEMALE Sonogrphr: Darinel Laws RVT Room: ER Tape Vol: VB, CPT - 4: [id number] Echo Event ID:[id number] Order ID: [id number] Reason for Study:Worsening redness, pain, and drainage of LLE at surgical site. s/p ORIF Tibial fracture on 07/21/2017 Race: C SUMMARY: DUPLEX SCAN OBSERVATIONS Deep Veins Superficial Veins Right Left Right Left EIV GSV (prox) Normal CFV Normal Normal (above knee) Femoral Normal GSV (dist) Not Visualized Profunda Normal (below knee) Popliteal Normal PT (prox) Not visualized SSV PT (dist) Normal Peroneal Not Visualized LEFT: There is normal compressibility with no evidence of echogenic material noted within the lumen of the visualized veins. Colorflow and Doppler signals are normal. Limited exam due to edema and body habitus. PRELIMINARY FINDINGS 1. Normal venous duplex exam of the visualized veins. Preliminary results given to DO Mitesh @ 2039 PHYSICIAN INTERPRETATION 1. Venous examination of the left lower extremity and right groin demonstrates no evidence of venous thrombosis. Signed 08/16/2017 02:16 AM Jarod Miranda MD * Blood culture, aerobic & anaerobic (08/15/2017 8:05 PM) Only the most recent of 4 results within the time period is included. Component Value Ref Range Blood culture isolate No growth after 5 days of incubation. Comment: Specimen Information Specimen Source: Blood Specimen Site: ARM RIGHT Specimen Performing Laboratory Blood [facility] DEPARTMENT OF PATHOLOGY AND [address] [address] * B natriuretic peptide (08/15/2017 8:05 PM) Only the most recent of 7 results within the time period is included. Component Value Ref Range BNP 37 0 - 100 pg/mL Specimen Performing Laboratory Blood [facility] DEPARTMENT OF PATHOLOGY AND [place] [id number] * Lipase level (08/15/2017 8:05 PM) Component Value Ref Range Lipase 14 13 - 60 U/L Specimen Performing Laboratory Plasma specimen [facility] DEPARTMENT OF PATHOLOGY AND [address] [address] * Lactic acid level (08/15/2017 8:05 PM) Only the most recent of 2 results within the time period is included. Component Value Ref Range Lactic acid 1.4 0.5 - 2.2 mmol/L Specimen Performing Laboratory Plasma specimen [facility] OF PATHOLOGY AND [address] [address] * Comprehensive metabolic panel (08/15/2017 8:05 PM) Only the most recent of 7 results within the time period is included. Component Value Ref Range Sodium 142 135 - 148 mEq/L Potassium 4.0 3.5 - 5.0 mEq/L Chloride 104 98 - 112 mEq/L CO2 26 24 - 31 mEq/L Anion gap 12 7 - 15 mEq/L Comment: Starting from September , anion gap calculation no longer incorporates potassium. Please note the change. BUN 17 8 - 23 mg/dL Creatinine 0.6 0.5 - 0.9 mg/dL Glucose 97 65 - 99 mg/dL Calcium 8.9 8.8 - 10.2 mg/dL Protein 7.1 6.3 - 8.3 g/dL Comment: 4.6-7.0 g/dL 1 week 4.4-7.6 g/dL 7 months-1year 5.1-7.3 g/dL 1-2 years 5.6-7.5 g/dL >3 years 6.0-8.0 g/dL 18-150 6.3-8.3 g/dL Albumin 3.2 (L) 3.5 - 5.0 g/dL A/G ratio 0.8 0.7 - 3.8 Alkaline phosphatase 131 (H) 35 - 104 U/L AST 23 10 - 35 U/L ALT 23 5 - 50 U/L Total bilirubin 0.3 0.0 - 1.2 mg/dL Specimen Performing Laboratory Plasma specimen [facility] DEPARTMENT OF PATHOLOGY AND GENOMIC MEDICINE [address] [place] [address] * XR Chest 1 Vw Portable (08/15/2017 7:50 PM) Only the most recent of 6 results within the time period is included. Specimen Performing Laboratory [address] [address] Narrative EXAMINATION: XR CHEST 1 VW PORTABLE CLINICAL HISTORY: Vomiting COMPARISON:08/02/2017. IMPRESSION: Mild pulmonary vascular congestion. No focal or confluent airspace consolidation. No pleural effusion or pneumothorax. The cardiomediastinal silhouette is accentuated by technique, stable. Thoracic aorta atherosclerotic calcifications. Diffuse osteopenia. Degenerative spine changes. Mild reverse S curvature of the thoracic spine. No acute osseous abnormalities. [facility]-[id number] Procedure Note Interface, Radiology Results Incoming - 08/15/2017 8:05 PM H[employer] WORKER EXAMINATION: XR CHEST 1 VW PORTABLE CLINICAL HISTORY: Vomiting COMPARISON: 08/02/2017. IMPRESSION: Mild pulmonary vascular congestion. No focal or confluent airspace consolidation. No pleural effusion or pneumothorax. The cardiomediastinal silhouette is accentuated by technique, stable. Thoracic aorta atherosclerotic calcifications. Diffuse osteopenia. Degenerative spine changes. Mild reverse S curvature of the thoracic spine. No acute osseous abnormalities. [facility]-[id number] * XR Abdomen 1 Vw Portable (08/15/2017 7:49 PM) Specimen Performing Laboratory [address] [address] Narrative EXAMINATION:XR ABDOMEN 1 VW PORTABLE CLINICAL HISTORY:Vomiting COMPARISON:None. IMPRESSION: Mild gaseous distention of small bowel in the left abdomen is noted, measuring up to 3.5 cm. Findings are possibly related to ileus or potentially small bowel obstruction. Further evaluate with CT if clinically indicated. No pathologic masses or calcifications are identified. Degenerative changes of osseous structures. Partially visualized hardware in the left proximal femur. [facility]-[id number] Procedure Note Interface, Radiology Results Incoming - 08/15/2017 8:03 PM H[employer] WORKER EXAMINATION: XR ABDOMEN 1 VW PORTABLE CLINICAL HISTORY: Vomiting COMPARISON: None. IMPRESSION: Mild gaseous distention of small bowel in the left abdomen is noted, measuring up to 3.5 cm. Findings are possibly related to ileus or potentially small bowel obstruction. Further evaluate with CT if clinically indicated. No pathologic masses or calcifications are identified. Degenerative changes of osseous structures. Partially visualized hardware in the left proximal femur. [facility]-[id number] * Urinalysis screen and microscopy, with reflex to culture (08/15/2017 7:45 PM) Only the most recent of 2 results within the time period is included. Component Value Ref Range Specimen site Clean catch Color, UA Colorless Appearance, UA Clear Specific gravity, UA 1.009 1.001 - 1.035 pH, UA 6.0 5.0 - 8.5 Protein, UA Negative Negative Glucose, UA Negative Negative Ketones, UA Negative Negative Bilirubin, UA Negative Negative Blood, UA Negative Negative Nitrite, UA Negative Negative Urobilinogen, UA <2.0 <2.0 Leukocyte esterase, UA Negative Negative Epithelial cells, UA 1 /HPF WBC, UA 1 0 - 4 /HPF RBC, UA 1 0 - 2 /HPF Bacteria, UA Few None seen Yeast, UA None seen Yeast with pseudohyphae, None seen UA Hyaline casts, UA 1 /LPF Specimen Performing Laboratory Urine [facility] DEPARTMENT OF PATHOLOGY AND GENOMIC MEDICINE [address] [place] [address] * Urine culture (08/15/2017 7:45 PM) Only the most recent of 2 results within the time period is included. Component Value Ref Range Urine culture SEE COMMENTComment: Bacteriuria screen negative. Specimen Performing Laboratory [facility] DEPARTMENT OF PATHOLOGY AND GENOMIC MEDICINE [address] [place] [address] * XR Tibia Fibula 2 Vw Left (08/03/2017 3:59 PM) Only the most recent of 2 results within the time period is included. Specimen Performing Laboratory [facility] [address] [place] [address] Narrative EXAMINATION:XR TIBIA FIBULA 2 VW LEFT CLINICAL HISTORY:BONE PAINLEG COMPARISON:July 21, 2017 IMPRESSION: 1.There are postsurgical changes involving the left lower extremity relating to ORIF of a proximal tibia. A sideplate with several screws are seen along the fracture site. A metaphyseal nondisplaced fibular fracture is unchanged from prior. 2.Osseous structures are significantly demineralized. 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 4.No acute fractures are identified. Evaluation is stable from July 21, 2017. There are postsurgical changes involving the distal femur and patella. [id number] Procedure Note Interface, Radiology Results Incoming - 08/03/2017 4:27 PM H[employer] WORKER EXAMINATION: XR TIBIA FIBULA 2 VW LEFT CLINICAL HISTORY: BONE PAIN LEG COMPARISON: July 21, 2017 IMPRESSION: 1. There are postsurgical changes involving the left lower extremity relating to ORIF of a proximal tibia. A sideplate with several screws are seen along the fracture site. A metaphyseal nondisplaced fibular fracture is unchanged from prior. 2. Osseous structures are significantly demineralized. 3. 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 4. No acute fractures are identified. Evaluation is stable from July 21, 2017. There are postsurgical changes involving the distal femur and patella. [id number] * Echocardiogram complete w contrast and 3D if needed (08/03/2017 7:00 AM) Specimen Performing Laboratory [facility] [address] [place] [address] Narrative Echocardiography Report [id number]Name:ZORAIDA HSU [facility].ID:[id number] .Date: 08/03/2017Refer.MD:KHAI MO MD Exam Time: 6:42:00 AMStudy Type:Routine Echo Height:67inWeight:212lb BSA: 2.07 m2 DOBAge:[age]Y Sex: FEMALEBP: 133/94 HR:66 bpmSonogrphr: RAISA Herrera Pat. Stat.:Inpatient Room:[facility] Study Status:Final Echo Event ID:[id number] Order ID:[id number] Reason for Study:Shortness of breath History / Clinical:Hypertension, Aortic Aneurysm, Congestive Heart Failure, Coronary Artery Disease, Shortness of Breath, Valvular Heart Disease; Aortic Insufficiency Procedures:2D Echo, Colorflow Doppler Race:C SUMMARY: LV EF is normal. LA volume is mildly enlarged. Aortic root diameter is moderately enlarged. Ascending aorta diameter is mod-severely enlarged. Mild aortic regurgitation. LV filling pressure is elevated. Insufficient TR jet to estimate PA systolic pressure. FINDINGS: LV: LV size is normal. LV EF is normal. Overall wall motion is normal.Estimated EF is 60-64%. RV: RV size is normal. RV systolic function is normal. LA: LA volume is mildly enlarged. RA: RA volume is normal. AO: Aortic root diameter is moderately enlarged. Ascending aorta diameteris mod-severely enlarged. JEREMY: No pericardial effusion. AV: Focal thickening of AV leaflets. Mild aortic regurgitation. MV: No structural MV abnormalities noted. PV: No structural PV abnormalities noted. TV: No structural TV abnormalities noted. [place]: LV relaxation is impaired. LV filling pressure is elevated. Other:Insufficient TR jet to estimate PA systolic pressure. MEASUREMENTS: 2D Parasternal Long Mack LVIDd4.4 cmIndex 2.1 cm/m LA Ds3.3 cm LVIDs2.8 cmAo Rtd 5 cm Index2.4 cm/m LV%fs 36.4 % LV Mass 158.2 g(87-129) IVSd 1.2 cmLVM Index 76.4 g/m2 LVPWd0.9 cmRWT 0.4 LA Sng Plane LA Area 24.2 cm2(8.8-23.4) LA Vol78.6 ml Index38 ml/m LA LngAx 6.2 cm RA Sng Plane RA Area 23.1 cm2(8.3-19.5) RA Vol70.6 ml Index34.1 ml/m RA LngAx 6.3 cm Aorta Ao Arc 4 cm Ascending Aorta Asce Dim 5.2 cm Signed 08/03/2017 02:37 PM Abilio North M.D. Procedure Note Interface, Radiology Results In - 08/03/2017 2:37 PM H[employer] WORKER Echocardiography Report [address] [place] [address] Pat.Name: ZORAIDA HSU [facility].ID: [id number] .Date: 08/03/2017 Refer.MD: KHAI MO MD Exam Time: 6:42:00 AM Study Type:Routine Echo Height: 67in Weight: 212lb BSA: 2.07 m2 Age: 11 1940,77Y Sex: FEMALE BP: 133/94 HR: 66 bpm Sonogrphr: RAISA Herrera Pat. Stat.:Inpatient Room: [facility] Study Status:Final Echo Event ID:[id number] Order ID: [id number] Reason for Study:Shortness of breath History / Clinical:Hypertension, Aortic Aneurysm, Congestive Heart Failure, Coronary Artery Disease, Shortness of Breath, Valvular Heart Disease; Aortic Insufficiency Procedures:2D Echo, Colorflow Doppler Race: C SUMMARY: LV EF is normal. LA volume is mildly enlarged. Aortic root diameter is moderately enlarged. Ascending aorta diameter is mod-severely enlarged. Mild aortic regurgitation. LV filling pressure is elevated. Insufficient TR jet to estimate PA systolic pressure. FINDINGS: LV: LV size is normal. LV EF is normal. Overall wall motion is normal. Estimated EF is 60-64%. RV: RV size is normal. RV systolic function is normal. LA: LA volume is mildly enlarged. RA: RA volume is normal. AO: Aortic root diameter is moderately enlarged. Ascending aorta diameter is mod-severely enlarged. JEREMY: No pericardial effusion. AV: Focal thickening of AV leaflets. Mild aortic regurgitation. MV: No structural MV abnormalities noted. PV: No structural PV abnormalities noted. TV: No structural TV abnormalities noted. [place]: LV relaxation is impaired. LV filling pressure is elevated. Other: Insufficient TR jet to estimate PA systolic pressure. MEASUREMENTS: 2D Parasternal Long Mack LVIDd 4.4 cm Index 2.1 cm/m LA Ds 3.3 cm LVIDs 2.8 cm Ao Rtd 5 cm Index 2.4 cm/m LV%fs 36.4 % LV Mass 158.2 g (87-129) IVSd 1.2 cm LVM Index 76.4 g/m2 LVPWd 0.9 cm RWT 0.4 LA Sng Plane LA Area 24.2 cm2 (8.8-23.4) LA Vol 78.6 ml Index 38 ml/m LA LngAx 6.2 cm RA Sng Plane RA Area 23.1 cm2 (8.3-19.5) RA Vol 70.6 ml Index 34.1 ml/m RA LngAx 6.3 cm Aorta Ao Arc 4 cm Ascending Aorta Asce Dim 5.2 cm Signed 08/03/2017 02:37 PM Abilio North M.D. * CK-MB (08/03/2017 4:00 AM) Only the most recent of 2 results within the time period is included. Component Value Ref Range CK-MB <1.0 1.0 - 5.3 ng/mL Specimen Performing Laboratory Plasma specimen [facility] DEPARTMENT OF PATHOLOGY AND GENOMIC MEDICINE [address] [place] [address] * Creatine kinase, total (CPK) (08/03/2017 4:00 AM) Only the most recent of 4 results within the time period is included. Component Value Ref Range Creatine kinase 17 (L) 26 - 192 U/L Specimen Performing Laboratory Plasma specimen [facility] DEPARTMENT OF PATHOLOGY AND GENOMIC MEDICINE [address] [place] [address] * CTA Chest W Wo Contrast (08/02/2017 4:33 PM) Specimen Performing Laboratory [facility] [address] [place] [address] Narrative Examination:CT ANGIOGRAM CHEST W WO CONTRAST Clinical history:"ascending aortic aneurysmcp" Comparison:04/16/2017 Technique:CT angiographic images of the chest were obtained during intravenous administration of iodinated contrast.Computerized, reformatted images and 3-D MIP images, as well as CT images of the chest prior to the administration of intravenous contrast, were obtained and archived. CT scans are performed using radiation dose reduction techniques.Technical factors are evaluated and adjusted to ensure appropriate moderation of exposure. Automated dose management technology is applied to adjust radiation exposure while achieving a diagnostic quality image. IMPRESSION: Vasculature:The aortic root and descending thoracic aorta measure 4.8 and 4.6 cm in luminal diameter, respectively.The thoracic aortic arch and the descending thoracic aorta measure 4.0 and 2.8 cm in luminal diameter, respectively.These dimensions are without significant change as compared to the prior study.There is no evidence of aortic dissection.The brachiocephalic artery measures 1.6 cm in luminal diameter.There is extensive and unchanged calcific atherosclerosis of the coronary arteries; noted is that the ostium of the right coronary artery abuts the posterior aspect of the right ventricular outflow tract and could be of clinical significance for which clinical correlation can be pursued. 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 Chest:Within the lungs, streaky atelectasis is noted without evidence of pulmonary nodules, infiltrates, or pleural effusions. There is no mediastinal or axillary lymphadenopathy. The heart is borderline enlarged.There is no evidence of a pericardial effusion. Other:Within the imaged bones, there are no acute abnormalities identified. Within the imaged portions of the upper abdomen, there are no acute visceral abnormality is identified.A large hiatal hernia is again noted.A right renal cyst is incompletely imaged. [id number] Procedure Note Hm Interface, Radiology Results Incoming - 08/02/2017 4:58 PM HOT STICK WORKER Examination: CT ANGIOGRAM CHEST W WO CONTRAST Clinical history: "ascending aortic aneurysm cp" Comparison: 04/16/2017 Technique: CT angiographic images of the chest were obtained during intravenous administration of iodinated contrast. Computerized, reformatted images and 3-D MIP images, as well as CT images of the chest prior to the administration of intravenous contrast, were obtained and archived. CT scans are performed using radiation dose reduction techniques. Technical factors are evaluated and adjusted to ensure appropriate moderation of exposure. Automated dose management technology is applied to adjust radiation exposure while achieving a diagnostic quality image. IMPRESSION: Vasculature: The aortic root and descending thoracic aorta measure 4.8 and 4.6 cm in luminal diameter, respectively. The thoracic aortic arch and the descending thoracic aorta measure 4.0 and 2.8 cm in luminal diameter, respectively. These dimensions are without significant change as compared to the prior study. There is no evidence of aortic dissection. The brachiocephalic artery measures 1.6 cm in luminal diameter. There is extensive and unchanged calcific atherosclerosis of the coronary arteries; noted is that the ostium of the right coronary artery abuts the posterior aspect of the right ventricular outflow tract and could be of clinical significance for which clinical correlation can be pursued. 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 The pulmonary artery measures 3.8 cm in luminal diameter and is unchanged from the prior study. Chest: Within the lungs, streaky atelectasis is noted without evidence of pulmonary nodules, infiltrates, or pleural effusions. There is no mediastinal or axillary lymphadenopathy. The heart is borderline enlarged. There is no evidence of a pericardial effusion. Other: Within the imaged bones, there are no acute abnormalities identified. Within the imaged portions of the upper abdomen, there are no acute visceral abnormality is identified. A large hiatal hernia is again noted. A right renal cyst is incompletely imaged. [id number] * Urine drugs of abuse screen (08/02/2017 3:40 PM) Component Value Ref Range Amphetamine screen, urine Negative Barbiturate screen, urine Negative Benzodiazepine screen, Negative urine Cannabinoid screen, urine Negative Cocaine screen, urine Negative Methadone metabolite Negative (EDDP), urine Opiates screen, urine Negative Oxycodone screen, urine Negative Phencyclidine screen, Negative urine Tricyclic screen, urine Negative Comment: Drug screen minimum concentration of detectability Amphetamines 1000 ng/mL Barbiturates 200 ng/mL Benzodiazepines 300 ng/mL Cocaine 300 ng/mL Methadone 3 00 ng/mL Opiates 300 ng/mL Oxycodone 3 00 ng/mL Phencyclidine 25 ng/mL Cannabinoids 50 ng/mL Tricyclics 1000 ng/mL Negative test results indicates presumptive evidence of lack of clinically significant drug concentration in this urine specimen. Positive test results are presumptive evidence of clinically significant drug concentration in this urine specimen. Testing performed for medical purposes only. Specimen Performing Laboratory Urine [facility] DEPARTMENT OF PATHOLOGY AND GENOMIC MEDICINE [address] [place] [address] * Respiratory pathogen panel (07/27/2017 12:30 PM) Component Value Ref Range Respiratory pathogen Negative for all pathogens tested: panel Negative for Adenovirus Negative for Coronavirus HKU1 Negative for Coronavirus NL63 Negative for Coronavirus 229E Negative for Coronavirus OC43 Negative for Human Metapneumovirus Negative for Rhinovirus/Enterovirus Negative for Influenza A Negative for Influenza A/H1 Negative for Influenza A/H3 Negative for Influenza A/H1-2009 Negative for Influenza B Negative for Parainfluenza Virus 1 Negative for Parainfluenza Virus 2 Negative for Parainfluenza Virus 3 Negative for Parainfluenza Virus 4 Negative for Respiratory Syncytial Virus Negative for Bordetella pertussis Negative for Chlamydophila pneumoniae Negative for Mycoplasma pneumoniae This real-time PCR assay detects the presence of nucleic acids (RNA or DNA) for the respiratory pathogens listed. A result of "Not-detected" does not exclude the possibility of the presence of one or more pathogens at concentrations less than the detectable limits of the assay. Comment: Specimen Information Specimen Source: Nares Specimen Site: Right Specimen Performing Laboratory Nares - Right [facility] DEPARTMENT OF PATHOLOGY AND GENOMIC MEDICINE [address] [place], [place] [id number] * Phosphorus level (07/24/2017 5:30 AM) Only the most recent of 2 results within the time period is included. Component Value Ref Range Phosphorus 3.9 2.4 - 4.5 mg/dL Specimen Performing Laboratory Plasma specimen [facility] DEPARTMENT OF PATHOLOGY AND [facility] MEDICINE [address] [place] [address] * Vitamin B12 level (07/23/2017 3:42 AM) Component Value Ref Range Vitamin B12 430 211 - 946 pg/mL Comment: Significant overlap exists between normal and deficiency states. However, most patients with deficiencies will have Serum B12 <200 pg/mL. Specimen Performing Laboratory Serum [facility] [address] [address] * Folate RBC (group test) (07/22/2017 4:00 PM) Component Value Ref Range RBC folate 1,320 499 - 1,504 ng/mL Specimen Performing Laboratory Blood [facility] AND [address] [address] * Total iron binding capacity (07/21/2017 6:12 PM) Component Value Ref Range Iron level 11 (L) 37 - 145 ug/dL Iron binding capacity 328 200 - 400 ug/dL % Saturation 3.4 (L) 15.0 - 38.0 % Specimen Performing Laboratory Plasma specimen [facility] DEPARTMENT PATHOLOGY AND [address] [address] Narrative SMALL GREEN * Ferritin level (07/21/2017 6:12 PM) Component Value Ref Range Ferritin level <13 (A) 13 - 150 ng/mL Specimen Performing Laboratory Plasma specimen [facility] DEPARTMENT PATHOLOGY [place] [id number] Narrative SMALL GREEN * XR Knee 1 Or 2 Vw Left (07/21/2017 4:59 PM) Specimen Performing Laboratory [facility] [address] [place] [address] Narrative EXAMINATION:XR KNEE 1 OR 2 VW LEFT CLINICAL HISTORY:post op x ray COMPARISON:07/21/2007 IMPRESSION: Bones are osteopenic. Patient is status post ORIF of a proximal tibial metaphyseal fracture, transfixed by a side plate and screw construct. Relative anatomic alignment of fracture fragments. Again noted is a proximal fibular fracture. Old surgical hardware is present in the distal femur and patella. Overlying soft tissue swelling and subcutaneous emphysema. [facility]-[id number] Procedure Note Interface, Radiology Results Incoming - 07/21/2017 5:14 PM HOT STICK WORKER EXAMINATION: XR KNEE 1 OR 2 VW LEFT CLINICAL HISTORY: post op x ray COMPARISON: 07/21/2007 IMPRESSION: Bones are osteopenic. Patient is status post ORIF of a proximal tibial metaphyseal fracture, transfixed by a side plate and screw construct. Relative anatomic alignment of fracture fragments. Again noted is a proximal fibular fracture. Old surgical hardware is present in the distal femur and patella. Overlying soft tissue swelling and subcutaneous emphysema. [facility]-[id number] * OR FL > I Hour (07/21/2017 4:10 PM) Specimen Performing Laboratory [facility] [address] [place] [address] Narrative EXAMINATION:OR FL 1 HOUR C-arm fluoroscopy was requested in OR. LOCATION:[facility] 19 OR ROOM 15 PROCEDURE:LEFT TIBIAL PLATEAU START TIME:1500 END TIME:1610 FLUORO TIME:52 SECS DOSE (mGy):10.89 mGy TECH(S):TS IMPRESSION: Separate operative report will be issued by the physician performing the procedure. [id number] Procedure Note Interface, Radiology Results Incoming - 07/21/2017 8:09 PM HOT STICK WORKER EXAMINATION: OR FL 1 HOUR C-arm fluoroscopy was requested in OR. LOCATION: [facility] 19 OR ROOM 15 PROCEDURE: LEFT TIBIAL PLATEAU START TIME: 1500 END TIME: 1610 FLUORO TIME: 52 SECS DOSE (mGy): 10.89 mGy TECH(S): TS IMPRESSION: Separate operative report will be issued by the physician performing the procedure. [id number] * Prepare RBC, 2 Units (07/21/2017 1:48 PM) Component Value Ref Range Product name Red Cells AS1 Leukored Irrad Unit number [id number] Product code [id number] Dispense status Returned to BB not transfused Blood expiration date 20170817 Blood type code 5100 Blood type O POSITIVE Product name Red Cells AS1 Leukored Irrad Unit number [id number] Product code [id number] Dispense status Returned to BB not transfused Blood expiration date 20170817 Blood type code 5100 Blood type O POSITIVE Specimen Performing Laboratory [facility] DEPARTMENT OF PATHOLOGY AND GENOMIC MEDICINE [address] [place] [address] * Type and screen (07/21/2017 1:48 PM) Component Value Ref Range ABO grouping O Rh type POS Antibody screen (gel) NEG Specimen Performing Laboratory Blood [facility] DEPARTMENT OF PATHOLOGY AND GENOMIC MEDICINE [address] [place] [address] * XR Hip 2-3 View Left (07/21/2017 12:49 PM) Specimen Performing Laboratory [facility] [address] [place] [address] Narrative EXAM:XR HIP 2-3 VIEWS LEFT CLINICAL:recent fall COMPARISON:None. IMPRESSION: 1.Dynamic screw and plate fixation of the proximal left femur. Hardware intact. 2.Generalized bone demineralization. 3.Nonobstructive bowel gas pattern. [facility]-[id number] Procedure Note Interface, Radiology Results Incoming - 07/21/2017 1:01 PM HOT STICK WORKER EXAM: XR HIP 2-3 VIEWS LEFT CLINICAL: recent fall COMPARISON: None. IMPRESSION: 1. Dynamic screw and plate fixation of the proximal left femur. Hardware intact. 2. Generalized bone demineralization. 3. Nonobstructive bowel gas pattern. [facility]-[id number] * XR Femur 2 Vw Left (07/21/2017 12:49 PM) Specimen Performing Laboratory [facility] [address] [place] [address] Narrative EXAMINATION: XR FEMUR 2 VW LEFT INDICATION: recent fall COMPARISON: Left hip radiographs dated 07/21/2017 IMPRESSION: Prior plate and screw fixation of the left femur for an old oblique minimally diaphyseal left femoral fracture. Body habitus and osseous demineralization limits detail. There is no evidence of a visible acute fracture of the left femur. Mild to moderate arthrosis of the left hip joint. [facility]-[id number] Procedure Note Interface, Radiology Results Incoming - 07/21/2017 1:04 PM HOT STICK WORKER EXAMINATION: XR FEMUR 2 VW LEFT INDICATION: recent fall COMPARISON: Left hip radiographs dated 07/21/2017 IMPRESSION: Prior plate and screw fixation of the left femur for an old oblique minimally diaphyseal left femoral fracture. Body habitus and osseous demineralization limits detail. There is no evidence of a visible acute fracture of the left femur. Mild to moderate arthrosis of the left hip joint. [facility]-[id number] * ECG Pre/Post Op (07/21/2017 11:03 AM) Component Value Ref Range Ventricular rate 77 Atrial rate 77 WY interval 172 QRSD interval 80 QT interval 410 QTC interval 463 P axis 1 26 QRS axis 1 13 T wave axis 56 EKG impression Normal sinus rhythm-Normal ECG-In automated comparison with ECG of 16-APR-2017 19:24,-Non-specific change in ST segment in Lateral leads- Specimen Performing Laboratory [facility] MUSE [address] [place] [address] * CV stress test (04/21/2017 9:28 AM) Component Value Ref Range Resting HR 76 Resting BP 182 Peak MET Achieved 1.0 Protocol Name REGADENO Time in Exercise Phase 00:01:00 Max Systolic BP 182 Max Diastolic BP 78 Max Heart Rate 99 Max Predicted Heart Rate 146 Target HR Formula (220 - Age)*100% Test Indication shortness of breath Stress Test Impression -Waveform interpreted in report associated with image study. No interpretation is provided as part of this Stress ECG report.-Electronically Signed By Keira GRAVES, Ty Chiu ([id number]), supervising editor trailer [employer] ([id number]) on 04/21/2017 8:34:08 AM Target HR 124.10 bpm Specimen Performing Laboratory [facility] [address] [place] [address] * Cv myocardial perfusion (04/21/2017 9:28 AM) Specimen Performing Laboratory [facility] [address] [place] [address] Narrative Nuclear Cardiology and Cardiac CT [address] [place] [address] Myocardial Perfusion Imaging Report Stress ECG tracings are available in [employer], [employer] and [employer] All ECG interpretations are included in this report Pat.Name:ZORAIDA HSU Pat.ID:[id number] .Date: 04/21/2017Refer.MD:IFEANYI CRYSTAL MD Exam Time: 8:16:00 AM Study Type:Myocardial Perfusion Imaging Height:67inWeight:220lb BSA: 2.11 m2 DOBAge:1939,76Y Sex: FEMALEBP: 145/79 HR:69 bpmHCT: 32.7 % Nuclear Tech:HU Almaraz, ARRT/HU Mills, ARRT Pat. Stat.:Inpatient Room:T5225V Nuclear Event ID:[id number] Order ID:[id number] Reason for Study:Shortness of breath History / Clinical:Hypertension, Obesity, Poliomyelitis, Appendectomy, Breast Biopsy, Torn rotator cuff, Congestive heart failure Procedures:Stress only Race: Risk Factors:Hypertension, Obesity Clinical Symptoms:Regadenoson Physical Exam:S1, S2 Surgery: Troponin Negativex 2 - 04/16/17, Troponin Negativex 1 - 04/17/17, Troponin Negativex 1 - , Troponin Negativex 1 - 04/18/17 Medications:Aspirin, KDur, Lasix, Lovenox, Metoprolol, Duo-Neb SUMMARY: SCINTIGRAPHIC RESULTS Perfusion Defect Size (% LV) 0 % Total 0 % Ischemia 0 % Scar Left Ventricular Perfusion Results There is normal tracer distribution throughout the myocardium during stress. Gated SPECT Results The post-stress left ventricular ejection fraction is 73 % with normal regional wall motion and left ventricular thickening.Left ventricular end-diastolic volume is 135 ml; end-systolic volume is37 ml. The left ventricle is of normal size at stress.The right ventricle is of normal size with normal wall motion. Conclusion Normal regadenoson Tc-99m tetrofosmin myocardial perfusion study. The left ventricular ejection fraction is normal. Comments Patients with a normal stress myocardial perfusion study have a low (< 1%) annual risk of cardiac or nonfatal myocardial infarction. Study Quality/Artifacts The study quality is good. Comparison to Previous Study None available. STRESS: Baseline Vital Signs:Intervention: Regadenoson 0.4mg /5ml IV over 10 seconds followed by radiotracer injection and 5ml saline flush ECG: First degree AV block HR:69 BP:145/79 Stress Test Results: Target HR: 124 Symptoms and Complications: Arrhythmias: None Terminated: As per Regadenoson protocol Symptoms:Dizziness, Shortness of breath Complications: None Conclusions: Normal heart rate response to pharmacological stress, Normal blood pressure response to pharmacological stress Stress ECG Interp: No ischemic ST segment change occurred with stress. Signed 04/21/2017 03:36 PM Ty Crockett MD Procedure Note Interface, Radiology Results In - 04/21/2017 3:37 PM CDT Nuclear Cardiology and Cardiac CT [address] [place] [address] Myocardial Perfusion Imaging Report Stress ECG tracings are available in [employer], [employer] and [employer] All ECG interpretations are included in this report Pat.Name: ZORAIDA HSU Pat.ID: [id number] St.Date: 04/21/2017 Refer.MD: IFEANYI CRYSTAL MD Exam Time: 8:16:00 AM Study Type:Myocardial Perfusion Imaging Height: 67in Weight: 220lb BSA: 2.11 m2 Age: 11 1940,76Y Sex: FEMALE BP: 145/79 HR: 69 bpm HCT: 32.7 % Nuclear Tech:HU Almaraz, ARRT/HU Mills, ARRT Pat. Stat.:Inpatient Room: [facility] Event ID:[id number] Order ID: [id number] Reason for Study:Shortness of breath History / Clinical:Hypertension, Obesity, Poliomyelitis, Appendectomy, Breast Biopsy, Torn rotator cuff, Congestive heart failure Procedures:Stress only Race: Risk Factors:Hypertension, Obesity Clinical Symptoms:Regadenoson Physical Exam:S1, S2 Surgery: Troponin Negative x 2 - 04/16/17, Troponin Negative x 1 - 04/17/17, Troponin Negative x - , Troponin Negative x - 04/18/17 Medications:Aspirin, KDur, Lasix, Lovenox, Metoprolol, Duo-Neb SUMMARY: SCINTIGRAPHIC RESULTS Perfusion Defect Size (% LV) 0 % Total 0 % Ischemia 0 % Scar Left Ventricular Perfusion Results There is normal tracer distribution throughout the myocardium during stress. Gated SPECT Results The post-stress left ventricular ejection fraction is 73 % with normal regional wall motion and left ventricular thickening. Left ventricular end-diastolic volume is 135 ml; end-systolic volume is 37 ml. The left ventricle is of normal size at stress. The right ventricle is of normal size with normal wall motion. Conclusion Normal regadenoson Tc-99m tetrofosmin myocardial perfusion study. The left ventricular ejection fraction is normal. Comments Patients with a normal stress myocardial perfusion study have a low (< 1%) annual risk of cardiac or nonfatal myocardial infarction. Study Quality/Artifacts The study quality is good. Comparison to Previous Study None available. STRESS: Baseline Vital Signs: Intervention: Regadenoson 0.4mg/5ml IV over 10 seconds followed by radiotracer injection and 5ml saline flush ECG: First degree AV block HR: 69 BP: 145/79 Stress Test Results: Target HR: 124 Symptoms and Complications: Arrhythmias: None Terminated: As per Regadenoson protocol Symptoms: Dizziness, Shortness of breath Complications: None Conclusions: Normal heart rate response to pharmacological stress, Normal blood pressure response to pharmacological stress Stress ECG Interp: No ischemic ST segment change occurred with stress. Signed 04/21/2017 03:36 PM Ty Crockett MD * CBC hemogram (04/21/2017 3:15 AM) Only the most recent of 2 results within the time period is included. Component Value Ref Range WBC 5.59 4.50 - 11.00 k/uL RBC 4.46 4.20 - 5.50 m/uL HGB 9.5 (L) 12.0 - 16.0 g/dL HCT 32.7 (L) 37.0 - 47.0 % MCV 73.3 (L) 82.0 - 100.0 fL MCH 21.3 (L) 27.0 - 34.0 pg MCHC 29.1 (L) 31.0 - 37.0 g/dL RDW - SD 61.2 (H) 37.0 - 55.0 fL MPV 10.2 8.8 - 13.2 fL Platelet count 316 150 - 400 k/uL Nucleated RBC 0.00 /100 WBC Specimen Performing Laboratory Blood [facility] DEPARTMENT OF PATHOLOGY AND GENOMIC MEDICINE [address] [place] [address] * Venous blood gas (04/19/2017 9:10 AM) Only the most recent of 2 results within the time period is included. Component Value Ref Range pH, venous 7.42 7.32 - 7.42 pCO2, venous 55 (H) 45 - 51 mmHg pO2, venous 63 (H) 25 - 40 mmHg Base excess, venous 9 (H) -2 - 2 meq/L O2 saturation, venous 91 (H) 40 - 70 % Bicarbonate, venous 34.8 (H) 21.0 - 28.0 mmol/L Specimen Performing Laboratory Blood [facility] DEPARTMENT OF PATHOLOGY AND [facility] [address] [place] [address] * POC glucose (04/18/2017 4:55 PM) Component Value Ref Range POC glucose 113 (H) 65 - 99 mg/dL Comment: [facility] Notified RN Meter ID: [id number] Engagement Director: Linda Garcia Specimen Performing Laboratory [facility] DEPARTMENT OF PATHOLOGY AND [facility] [address] [place] [address] * Echocardiogram complete w contrast and 3D if needed (04/17/2017 10:33 AM) Specimen [place] [address] Narrative Echocardiography Report [address] [place] [address] Pat.Name:ZORAIDA HSU Pat.ID:[id number] .Date: 04/17/2017Refer.MD:YOU LOPEZ MD Exam Time: 9:19:00 AMStudy Type:Routine Echo Height:67inWeight:227lb BSA: 2.14 m2 DOBAge:1939,76Y Sex: FEMALEBP: 170/76 HR:75 bpm Sonogrphr: Piedad Carrion RDCS; Radhika Freitas Pat. Stat.:Inpatient Room:[address] Study Status:Final Echo Event ID:[id number] Order ID:[id number] Reason for Study:Heart Failure; HF - Initial eval of known or suspected HF (systeolic or diastolic) based on symptoms, signs, or abnormal test results History / Clinical:Hypertension, Aortic Aneurysm, Congestive Heart Failure, Coronary Artery Disease, Shortness of Breath, Valvular Heart Disease; Aortic Insufficiency Procedures:2D Echo, Colorflow Doppler Race:C SUMMARY: LV systolic function is normal. Estimated EF is 65-69%. RV systolic function is normal. Ascending aorta diameter is mildly enlarged. Mild aortic regurgitation. FINDINGS: LV: LV size is normal. There is mild concentric LV hypertrophy. LVsystolic function is normal. Overall wall motion is normal.Estimated EF is 65-69% RV: RV size is normal. RV systolic function is normal. LA: LA volume is mild to moderately enlarged. RA: RA size is normal. AO: Ascending aorta diameter is mildly enlarged. Calcifications inascending aorta. JEREMY: No pericardial effusion. AV: Mild thickening and calcification of AV leaflets. Mild aorticregurgitation. MV: Mild mitral annular calcification. PV: No structural PV abnormalities noted. TV: No structural TV abnormalities noted. [place]jas: LV relaxation is impaired. LV filling pressure is normal. Other:Insufficient TR jet to estimate PA systolic pressure. MEASUREMENTS: 2D Parasternal Long Mack LVOT 2.7 cmLA Ds 3.8 cm LVIDd4.9 cmIndex 2.3 cm/m Ao An2.1 cm LVIDs3.3 cmAo Rtd 3.6 cm Index1.7 cm/m LV%fs 32.7 % LV Mass 239.9 g(87-129) IVSd 1.4 cmLVM Index 112.1 g/m2 LVPWd1.1 cmRWT 0.4 LA Sng Plane LA Area 24.6 cm2(8.8-23.4) LA Vol87.3 ml Index40.8 ml/m LA LngAx 5.8 cm Aorta Ao Asc 4.6 cm (2.1-3.4) DOPPLER LVOT For Flow LVOT Area5.7 cm2 LVOT SV 172.5 ml ZKKJixGjh853.8 cm/sHR 82.4 bpm LVOTpkPG 8.5 mmHgLVOT CO 14.2 l/min LVOTmnPG 4.8 mmHgLVOT CI 6.6 l/m/m2 LVOT TVI30.1 cm Signed 04/17/2017 11:57 AM Ramo Michel M.D. Procedure Note Interface, Radiology Results In - 04/17/2017 11:57 AM CDT Echocardiography Report [address] [place] [address] Pat.Name: ZORAIDA HSU Pat.ID: [id number] .Date: 04/17/2017 Refer.MD: YOU LOPEZ MD Exam Time: 9:19:00 AM Study Type:Routine Echo Height: 67in Weight: 227lb BSA: 2.14 m2 Age: 11 1940,76Y Sex: FEMALE BP: 170/76 HR: 75 bpm Sonogrphr: Piedad Carrion RDCS; Radhika Robert. Stat.:Inpatient Room: [address] Study Status:Final Echo Event ID:[id number] Order ID: [id number] Reason for Study:Heart Failure; HF - Initial eval of known or suspected HF (systeolic or diastolic) based on symptoms, signs, or abnormal test results History / Clinical:Hypertension, Aortic Aneurysm, Congestive Heart Failure, Coronary Artery Disease, Shortness of Breath, Valvular Heart Disease; Aortic Insufficiency Procedures:2D Echo, Colorflow Doppler Race: C SUMMARY: LV systolic function is normal. Estimated EF is 65-69%. RV systolic function is normal. Ascending aorta diameter is mildly enlarged. Mild aortic regurgitation. FINDINGS: LV: LV size is normal. There is mild concentric LV hypertrophy. LV systolic function is normal. Overall wall motion is normal. Estimated EF is 65-69% RV: RV size is normal. RV systolic function is normal. LA: LA volume is mild to moderately enlarged. RA: RA size is normal. AO: Ascending aorta diameter is mildly enlarged. Calcifications in ascending aorta. JEREMY: No pericardial effusion. AV: Mild thickening and calcification of AV leaflets. Mild aortic regurgitation. MV: Mild mitral annular calcification. PV: No structural PV abnormalities noted. TV: No structural TV abnormalities noted. Riojas: LV relaxation is impaired. LV filling pressure is normal. Other: Insufficient TR jet to estimate PA systolic pressure. MEASUREMENTS: 2D Parasternal Long Mack LVOT 2.7 cm LA Ds 3.8 cm LVIDd 4.9 cm Index 2.3 cm/m Ao An 2.1 cm LVIDs 3.3 cm Ao Rtd 3.6 cm Index 1.7 cm/m LV%fs 32.7 % LV Mass 239.9 g (87-129) IVSd 1.4 cm LVM Index 112.1 g/m2 LVPWd 1.1 cm RWT 0.4 LA Sng Plane LA Area 24.6 cm2 (8.8-23.4) LA Vol 87.3 ml Index 40.8 ml/m LA LngAx 5.8 cm Aorta Ao Asc 4.6 cm (2.1-3.4) DOPPLER LVOT For Flow LVOT Area 5.7 cm2 LVOT SV 172.5 ml LVOTpkVel 145.8 cm/s HR 82.4 bpm LVOTpkPG 8.5 mmHg LVOT CO 14.2 l/min LVOTmnPG 4.8 mmHg LVOT CI 6.6 l/m/m2 LVOT TVI 30.1 cm Signed 04/17/2017 11:57 AM Ramo Michel M.D. * ECG ED Preliminary Interpretation - NOT AN ORDER (04/16/2017 10:17 PM) Only the most recent of 2 results within the time period is included. Narrative Niurka Stevenson MD 04/16/2017 10:17 PM ECG ED Preliminary Interpretation - Not an Order Performed by: NIURKA STEVENSON Authorized by: NIURKA STEVENSON ECG reviewed by ED Physician in the absence of a flatbed truck driver: yes Previous ECG: Previous ECG:Unavailable Interpretation: Interpretation: normal Rate: ECG rate:86 ECG rate assessment: normal Rhythm: Rhythm: sinus rhythm QRS: QRS axis:Normal QRS intervals:Normal Conduction: Conduction: normal ST segments: ST segments:Normal T waves: T waves: normal * XR Hip 1 View Right (04/16/2017 10:12 PM) Specimen Performing Laboratory [facility] [address] [place] [address] Narrative EXAMINATION:XR HIP 1 VIEW RIGHT CLINICAL HISTORY:r o fx COMPARISON:None. IMPRESSION: 1.2 view evaluation of the right hip demonstrates no evidence to suggest an acute fracture. Osseous structures are demineralized. [facility]-[id number] Procedure Note Hm Interface, Radiology Results Incoming - 04/16/2017 10:20 PM CDT EXAMINATION: XR HIP 1 VIEW RIGHT CLINICAL HISTORY: r o fx COMPARISON: None. IMPRESSION: 1. 2 view evaluation of the right hip demonstrates no evidence to suggest an acute fracture. Osseous structures are demineralized. [id number] * Lipid panel (03/12/2017 4:00 AM) Component Value Ref Range Cholesterol 154 <200 mg/dL Triglycerides 54 <150 mg/dL HDL cholesterol 57 >40 mg/dL LDL cholesterol 94Comment: Result obtained by direct LDL <100 mg/dL measurement Lipid panel SeeBelow interpretation Comment: Total Cholesterol (mg/dL) <200 Desirable 200-239 Borderline-high >=240 High Triglycerides (mg/dL) <150 Normal 150-199 Borderline-high 200-499 High >=500 Very high HDL Cholesterol (mg/dL) <40 Low (male) <40 Low (female) LDL Cholesterol (mg/dL) <100 Optimal 100-129 Near or above optimal 130-159 Borderline-high 160-189 High >=190 Very high Risk Catergories that modify LDL goals. Risk Catergories LDL goal (mg/dL) CHD and CHD risk equivalent <100 (10-year risk >20%) Multiple (2+) risk factors <130 (10-year risk=<20%) 0-1 risk factors <160 (<10-year risk) Defining levels of lipids in metabolic syndrome Triglycerides >=150 mg/dL HDL Cholesterol Men <40 mg/dL Women <40 mg/dL Non-HDL cholesterol is a second target for therapy in persons with high triglycerides (>=200 mg/dL) Specimen Performing Laboratory Plasma specimen [facility] DEPARTMENT OF PATHOLOGY AND GENOMIC MEDICINE [address] [place], [place] [id number] * Cv labor utilization superintendent procedure (03/11/2017 1:57 PM) Specimen Performing Laboratory [facility] [address] [place] [address] Narrative Procedure - Selective coronary angiogram Indications - Abnormal stress test, shortness of breath Vascular access site - Right femoral artery Estimated blood loss - 5cc Complications - None Results - 1. Left main - Luminal irregularities 2. LAD - 30% mid stenosis, otherwise luminal irregularities 3. LCX - 30% mid stenosis, otherwise luminal irregularities 4. RCA - 30% mid stenosis, otherwise luminal irregularities, Right dominant * XR Chest 2 Vw (02/02/2017 2:56 PM) Specimen Performing Laboratory [facility] [address] [place] [id number] Narrative EXAMINATION:XR CHEST 2 VW CLINICAL HISTORY:Chest Pain, SHORTNESS OF BREATH XR CHEST 2 VWimages are submitted COMPARISON:August 2015 FINDINGS: Cardiac silhouette is mildly enlarged. There is tortuosity of the thoracic aorta. The lung zones have no focal area of consolidation. There is no pleural effusion or pneumothorax. A hiatal hernia is present. IMPRESSION: 1. Cardiomegaly. 2. There is no acute consolidation or failure. 3. Hiatal hernia is present. 4. There is minimal change since the prior study. [facility]-[id number] Procedure Note Interface, Radiology Results Incoming - 02/02/2017 3:03 PM CDT EXAMINATION: XR CHEST 2 VW CLINICAL HISTORY: Chest Pain, SHORTNESS OF BREATH XR CHEST 2 VW images are submitted COMPARISON: August 2015 FINDINGS: Cardiac silhouette is mildly enlarged. There is tortuosity of the thoracic aorta. The lung zones have no focal area of consolidation. There is no pleural effusion or pneumothorax. A hiatal hernia is present. IMPRESSION: 1. Cardiomegaly. 2. There is no acute consolidation or failure. 3. Hiatal hernia is present. 4. There is minimal change since the prior study. [id number] after 08/20/2016 Insurance Payer Benefit Subscriber ID Type Phone Address Plan / Group MEDICARE MEDICARE xxxxxxxxxx Medicare [place], [place] PART A AND B BCBS BCBS OUT xxxxxxxxxxxxxxx PPO OF STATE x Work: [address] [facility] [place] [address] Home:
[2017-08-21 14:22] LABS: BLOOD UREA NITROGEN 13 mg/dL (7-26); BUN/CREATININE RATIO 21 (6-25); CALCIUM 9.8 mg/dL (8.4-10.2); CARBON DIOXIDE 26 mmol/L (22-29); CHLORIDE 105 mmol/L (98-107); CREATININE, SERUM 0.63 mg/dL (0.57-1.11); EST GLOMERULAR FILTRATION RATE > 60 ML/MIN (60-); GLUCOSE 144 mg/dL (74-118); SODIUM 143 mmol/L (136-145)
[2017-08-21 14:28] LABS: BASOPHILS % 0.6 % (0.0-1.0); EOSINOPHILS # (AUTO) 0.1 (0.0-0.4); HEMATOCRIT 42.4 % (34.2-44.1); HEMOGLOBIN 12.9 g/dL (12.0-16.0); LYMPHOCYTES # (AUTO) 0.9 (1.0-3.2); LYMPHOCYTES % 17.7 % (18.0-39.1); MEAN CORPUSCULAR HEMOGLOBIN 24.8 pg (28-32); MEAN CORPUSCULAR HGB CONC 30.4 g/dL (31-35); MEAN CORPUSCULAR VOLUME 81.4 fL (81-99); MONOCYTES # (AUTO) 0.6 (0.2-0.8); MONOCYTES % 11.9 % (4.4-11.3); NEUTROPHILS # (AUTO) 3.4 (2.1-6.9); NEUTROPHILS % 67.2 % (38.7-80.0); PLATELET COUNT 178 x10e3/uL (140-360); RED BLOOD COUNT 5.21 x10e6/uL (3.6-5.1); RED CELL DISTRIBUTION WIDTH 27.7 % (11.7-14.4)
--- NOTE | 2017-08-21 14:37 | Diagnostic Imaging Report ---
PROCEDURE: Frontal and lateral views of the chest. COMPARISON: 01/12/17 INDICATIONS: SHORTNESS OF BREATH FINDINGS: Lines/tubes: None. Lungs: Limited by body habitus. Pulmonary vascular congestion and mild interstitial edema. Pleura: There is no significant pleural effusion or pneumothorax. Heart and mediastinum: Enlarged cardiomediastinal silhouette. Bones: Generalized demineralization limits evaluation. Upper lumbar spine vertebral body compression deformity of indeterminant age. IMPRESSION: Limited by body habitus. Enlarged cardiomediastinal silhouette, pulmonary vascular congestion, and mild interstitial edema. Dictated by: Julian Kern M.D. on 08/21/2017 at 14:37 Electronically approved by: Julian Kern M.D. on 08/21/2017 at 14:37
[2017-08-21] MEDS ORDERED: FUROSEMIDE INJ 10 MG/ML 4 ML VIAL IV ONE (15:00)
[2017-08-21 17:34] LABS: ANISOCYTOSIS SLIGHT; PLATELET ESTIMATE ADEQUATE; PLATELET MORPHOLOGY COMMENT FEW AGRANULAR; RBC MORPHOLOGY COMMENT NORMAL
[2017-08-21] MEDS ORDERED: AMMONIA AROMATIC INHAL 0.33 ML AMP INH ONE (23:15)
== END 2017-08-21 18:30 | disposition home or self-care (01) ==
LOC: ER 12:43
DX: R06.00 Dyspnea, unspecified (principal); I50.22 Chronic systolic (congestive) heart failure; I10 Essential (primary) hypertension; Z86.12 Personal history of poliomyelitis
CPT/HCPCS: 36415; 71046; 80048; 83880; 85025; 93971; 99284; J1940

== ENCOUNTER 2018-02-19 20:59 | Emergency (ER) | payer MEDICARE, BC ==
[~2018-02-19] VITALS: Ht 170.2 cm; Wt 90.7 kg
[2018-02-19] MEDS ORDERED: TETRAHYDROZOLINE HCL(OPTH) 30 ML BOTTLE OP ONE (21:15)
[2018-02-19] MEDS ORDERED: FLUORESCEIN SOD(OPTH) 1 MG STRP OP ONE (21:15)
[2018-02-19] MEDS: EYE IRRIGATION (OPTH) 120 ML BTL OP ONE (21:34)
[2018-02-19] MEDS ORDERED: TOBRAMYCIN 0.3% OPTH OINT 3.5 GM TUBE OP ONE (21:45)
[2018-02-19 22:18] VITALS: BP 154/89
== END 2018-02-19 23:04 | disposition home or self-care (01) ==
LOC: ER 20:59
DX: H57.11 Ocular pain, right eye (principal); H10.211 Acute toxic conjunctivitis, right eye; T26.61XA Corrosion of cornea and conjunctival sac, right eye, initial encounter; T54.3X1A Toxic effect of corrosive alkalis and alkali-like substances, accidental (unintentional), initial encounter; Y92.008 Other place in unspecified non-institutional (private) residence as the place of occurrence of the external cause
CPT/HCPCS: 99283

== ENCOUNTER 2019-01-29 17:16 | Emergency (ER) | payer MEDICARE, BC ==
[~2019-01-29] VITALS: Ht 170.2 cm; Wt 90.7 kg
--- OUTSIDE RECORDS SUMMARY | 2019-01-29 17:19 | XMS REPORT | Continuity of Care Document ---
Author Author [facility] [place] Address Unknown Phone Unavailable Care Team Providers Care Supervisor Smoke Control Name Role Phone [facility] Unavailable Unavailable Problems No Data Provided for This Section Medications Medication Details Route Status Patient Instructions Ordering Provider Order Date Source Furosemide (Lasix) 40 Mg Tablet Daily Active [facility] Metoprolol Succinate 50 Mg Tab.er.24h Daily Active [facility] Montelukast Sodium 10 Mg Tablet Daily Active [facility] Phentermine Hcl 37.5 Mg Capsule Daily [facility] Potassium Chloride 10 Meq Tab.er.prt Daily [facility] Allergies, Adverse Reactions, Alerts Substance Category Reaction Severity Reaction type Status Date Reported Comments Source No Known Drug Allergies Mild Allergy to Substance Active 01/12/2017 [facility] Immunizations No Data Provided for This Section Results Order Name Results Value Reference Range Date Interpretation Comments Source Automated blood basophil count (count/volume) Automated blood basophil count (count/volume) 0.0 0.0 - 0.1 08/21/2017 [facility] Automated blood basophil count as percentage of total leukocytes Automated blood basophil count as percentage of total leukocytes 0.6 0.0 - 1.0 08/21/2017 [facility] Automated blood eosinophil count Automated blood eosinophil count 0.1 0.0 - 0.4 08/21/2017 [facility] Automated blood eosinophil count as percentage of total leukocytes Automated blood eosinophil count as percentage of total leukocytes 2.0 0.0 - 6.0 08/21/2017 [facility] Automated blood hematocrit (volume fraction) Automated blood hematocrit (volume fraction) 42.4 34.2 - 44.1 08/21/2017 [facility] Automated blood lymphocyte count as percentage ot total leukocytes Automated blood lymphocyte count as percentage ot total leukocytes 17.7 18.0 - 39.1 08/21/2017 [facility] Automated blood monocyte count as percentage of total leukocytes Automated blood monocyte count as percentage of total leukocytes 11.9 4.4 - 11.3 08/21/2017 [facility] Automated blood neutrophil count Automated blood neutrophil count 3.4 2.1 - 6.9 08/21/2017 [facility] Automated blood platelet count (count/volume) Automated blood platelet count (count/volume) 178 140 - 360 08/21/2017 [facility] Automated blood segmented neutrophil count as percentage of total leukocytes Automated blood segmented neutrophil count as percentage of total leukocytes 67.2 38.7 - 80.0 08/21/2017 [facility] Automated erythrocyte mean corpuscular hemoglobin (mass per erythrocyte) Automated erythrocyte mean corpuscular hemoglobin (mass per erythrocyte) 24.8 28 - 32 08/21/2017 [facility] Automated erythrocyte mean corpuscular hemoglobin concentration measurement (mass/volume) Automated erythrocyte mean corpuscular hemoglobin concentration measurement (mass/volume) 30.4 31 - 35 08/21/2017 [facility] Automated erythrocyte mean corpuscular volume Automated erythrocyte mean corpuscular volume 81.4 81 - 99 08/21/2017 [facility] Blood anisocytosis detection by light microscopy Blood anisocytosis detection by light microscopy SLIGHT 08/21/2017 [facility] Blood erythrocytes automated count (number/volume) Blood erythrocytes automated count (number/volume) 5.21 3.6 - 5.1 08/21/2017 [facility] Blood hemoglobin measurement (moles/volume) Blood hemoglobin measurement (moles/volume) 12.9 12.0 - 16.0 08/21/2017 [facility] Blood leukocytes automated count (number/volume) Blood leukocytes automated count (number/volume) 5.04 4.8 - 10.8 08/21/2017 [facility] Blood lymphocytes count (number/volume) Blood lymphocytes count (number/volume) 0.9 1.0 - 3.2 08/21/2017 [facility] Blood monocytes automated count (number/volume) Blood monocytes automated count (number/volume) 0.6 0.2 - 0.8 08/21/2017 [facility] Blood platelets count by estimate (number/volume) Blood platelets count by estimate (number/volume) ADEQUATE 08/21/2017 [facility] Estimated glomerular filtration rate (GFR) determination Estimated glomerular filtration rate (GFR) determination >60 60 08/21/2017 [facility] Glucose measurement Glucose measurement 144 74 - 118 08/21/2017 [facility] Platelet morphology Platelet morphology FEW AGRANULAR 08/21/2017 [facility] RBC morphology RBC morphology NORMAL 08/21/2017 [facility] Serum or plasma anion gap Serum or plasma anion gap 16.0 8 - 16 08/21/2017 [facility] Serum or plasma calcium measurement (mass/volume) Serum or plasma calcium measurement (mass/volume) 9.8 8.4 - 10.2 08/21/2017 [facility] Serum or plasma carbon dioxide, total measurement (moles/volume) Serum or plasma carbon dioxide, total measurement (moles/volume) 26 22 - 29 08/21/2017 [facility] Serum or plasma chloride measurement (moles/volume) Serum or plasma chloride measurement (moles/volume) 105 98 - 107 08/21/2017 [facility] Serum or plasma creatinine measurement (mass/volume) Serum or plasma creatinine measurement (mass/volume) 0.63 0.57 - 1.11 08/21/2017 [facility] Serum or plasma potassium measurement (moles/volume) Serum or plasma potassium measurement (moles/volume) 4.0 3.5 - 5.1 08/21/2017 [facility] Serum or plasma sodium measurement (moles/volume) Serum or plasma sodium measurement (moles/volume) 143 136 - 145 08/21/2017 [facility] Serum or plasma urea nitrogen measurement (mass/volume) Serum or plasma urea nitrogen measurement (mass/volume) 13 7 - 26 08/21/2017 [facility] Serum or plasma urea nitrogen/creatinine mass ratio Serum or plasma urea nitrogen/creatinine mass ratio 21 6 - 25 08/21/2017 [facility] Red Cell Distribution Width 27.7 11.7 - 14.4 08/21/2017 [facility] IM GRANULOCYTES % 0.6 0.0 - 1.0 08/21/2017 [facility] Absolute Immature Granulocyte (auto 0.03 0 - 0.1 08/21/2017 [facility] B-Type Natriuretic Peptide 93.7 0 - 100 08/21/2017 [facility] Pathology Reports No Data Provided for This Section Diagnostic Reports No Data Provided for This Section Consultation Notes No Data Provided for This Section Discharge Summaries No Data Provided for This Section History and Physicals No Data Provided for This Section Vital Signs No Data Provided for This Section Encounters Location Location Details Encounter Type Encounter Number Reason For Visit Attending Provider ADM Date DC Date Status Source Departed Emergency Room [id number] HAYDER HARDIN MD 08/21/2017 08/21/2017 [facility] Departed Emergency Room [id number] IFEANYI PICHARDO MD 02/19/2018 02/19/2018 [facility] Procedures Procedure Code Date Perfomer Comments Source X-ray of chest, two views [id number] 08/21/[address] [facility] Assessment and Plan No Data Provided for This Section Plan of Care Plan of Care Date Source Discharge Date 02/19/18 11:04pm Disposition HOME, SELF-CARE Condition at Discharge Stable Instructions/Education Provided [employer] Forms Provided Work/School Excuse Prescriptions See Medication Section Referrals ALEX JAMISON MD Address: [address] [place] [address] [address] [place] [address] INDIO RODRIGUEZ MD Address: [address] [place] [address] [address] [place] [address] Additional Instructions/Education 1- Take tobramycin 0.5 inch every 8 hours for one week 2- Follow up with your PCP on Thursday 3- Return for any concerns 02/19/2018 [facility] Social History Social History Date Source Smoking Status Start Date Stop Date Never Smoker 02/19/2018 [facility] Family History No Data Provided for This Section Advance Directives Order Name Results Value Date Source Advance Directives Advance Directives Directive Response Recorded Date/Time Does the patient have an advance directive? No 07/16/09 5:45pm If yes, is advance directive on file with [facility]? No 07/16/09 5:45pm If not on file with [facility] will patient provide a copy? No 08/21/17 3:17pm 02/19/2018 [facility] Functional Status No Data Provided for This Section
--- OUTSIDE RECORDS SUMMARY | 2019-01-29 17:19 | XMS REPORT | Clinical Summary ---
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 PLASMA Routine 12/30/2018 4:00 AM CDT FOLATE LEVEL Routine 12/30/2018 4:00 AM CDT VITAMIN B12 LEVEL Routine 12/30/2018 4:00 AM CDT MAGNESIUM LEVEL Routine 12/30/2018 4:00 AM CDT BASIC METABOLIC PANEL Routine 12/30/2018 4:00 AM CDT XR FEMUR 2 VW LEFT Routine 12/29/2018 8:24 PM CDT XR HUMERUS LEFT Routine 12/29/2018 8:[address] CERVICAL SPINE WO Routine 12/29/2018 CONTRAST 7:[address] HEAD WO CONTRAST Routine 12/29/2018 7:13 PM CDT XR HIP 2-3 VIEWS LEFT STAT 12/29/2018 11:16 AM CDT XR CHEST 1 VW PORTABLE STAT 12/29/2018 11:15 AM CDT ESTIMATED GFR Routine 12/29/2018 10:02 AM CDT B NATRIURETIC PEPTIDE Routine 12/29/2018 10:02 AM CDT TROPONIN Routine 12/29/2018 10:02 AM CDT COMPREHENSIVE METABOLIC Routine 12/29/2018 PANEL 10:02 AM CDT PARTIAL THROMBOPLASTIN Routine 12/29/2018 TIME (PTT) 10:02 AM CDT PROTHROMBIN TIME WITH INR Routine 12/29/2018 10:02 AM CDT HC COMPLETE BLD COUNT Routine 12/29/2018 W/AUTO DIFF 10:02 AM CDT ECG 12-LEAD STAT 12/29/2018 9:50 AM CDT ECG ED PRELIMINARY Routine 12/29/2018 INTERPRETATION 9:26 AM CDT ECHOCARDIOGRAM 2D Routine 11/03/2018 COMPLETE W MMODE SPECTRAL 11:20 AM CDT COLOR DOPPLER (64546) HC COMPLETE BLD COUNT Routine 11/03/2018 W/AUTO DIFF 5:30 AM CDT ESTIMATED GFR Routine 11/03/2018 4:00 AM CDT BASIC METABOLIC PANEL Routine 11/03/2018 4:00 AM CDT HC COMPLETE BLD COUNT Routine 11/02/2018 W/AUTO DIFF 4:50 AM CDT ESTIMATED GFR Routine 11/02/2018 4:00 AM CDT BASIC METABOLIC PANEL Routine 11/02/2018 4:00 AM CDT HC COMPLETE BLD COUNT Routine 11/01/2018 W/AUTO DIFF 5:50 AM CDT ESTIMATED GFR Routine 11/01/2018 4:00 AM CDT BASIC METABOLIC PANEL Routine 11/01/2018 4:00 AM CDT HC COMPLETE BLD COUNT Routine 10/31/2018 W/AUTO DIFF 6:00 AM CDT ESTIMATED GFR Routine 10/31/2018 4:00 AM CDT BASIC METABOLIC PANEL Routine 10/31/2018 4:00 AM CDT TROPONIN Timed 10/30/2018 6:56 AM CDT VALPROIC ACID LEVEL Timed 10/30/2018 4:15 AM CDT TROPONIN Timed 10/30/2018 4:15 AM CDT ECG 12-LEAD STAT 10/29/2018 7:52 PM CDT B NATRIURETIC PEPTIDE STAT 10/29/2018 7:51 PM CDT XR PICC CHEST PORTABLE Routine 10/29/2018 Paresthesia of left leg 12:04 PM CDT HC CATH DUAL LUMEN PICC Routine 10/29/2018 11:26 AM CDT HC US GUIDED VASCULAR Routine 10/29/2018 ACCESS 11:26 AM CDT HC CVL PICC INSERT 5 YRS Routine 10/29/2018 OR > W/O IMG GUID 11:26 AM CDT C-REACTIVE PROTEIN STAT 10/29/2018 9:43 AM CDT SEDIMENTATION RATE STAT 10/29/2018 9:43 AM CDT XR ELBOW 2 VW LEFT STAT 10/29/2018 9:36 AM CDT URINE DRUGS OF ABUSE STAT 10/29/2018 SCREEN 5:54 AM CDT URINALYSIS SCREEN AND STAT 10/29/2018 MICROSCOPY, WITH REFLEX 5:52 AM CDT TO CULTURE URINE CULTURE STAT 10/29/2018 5:45 AM CDT ESTIMATED GFR STAT 10/29/2018 5:15 AM CDT SALICYLATE LEVEL STAT 10/29/2018 5:15 AM CDT ACETAMINOPHEN LEVEL STAT 10/29/2018 5:15 AM CDT ALCOHOL LEVEL, BLOOD STAT 10/29/2018 5:15 AM CDT CREATINE KINASE, TOTAL STAT 10/29/2018 (CPK) 5:15 AM CDT T4, FREE STAT 10/29/2018 5:15 AM CDT THYROID STIMULATING STAT 10/29/2018 HORMONE 5:15 AM CDT COMPREHENSIVE METABOLIC STAT 10/29/2018 PANEL 5:15 AM CDT HC COMPLETE BLD COUNT STAT 10/29/2018 W/AUTO DIFF 5:15 AM CDT US DUPLEX VENOUS LOWER STAT 10/29/2018 EXTREMITY LEFT 5:12 AM CDT ESTIMATED GFR Routine 10/19/2018 4:29 AM CDT BASIC METABOLIC PANEL Routine 10/19/2018 4:29 AM CDT CBC HEMOGRAM Routine 10/19/2018 4:29 AM CDT CBC HEMOGRAM Routine 10/18/2018 4:33 AM CDT ESTIMATED GFR Routine 10/18/2018 4:00 AM CDT BASIC METABOLIC PANEL Routine 10/18/2018 4:00 AM CDT ESTIMATED GFR Routine 10/17/2018 5:03 AM CDT BASIC METABOLIC PANEL Routine 10/17/2018 5:03 AM CDT TOTAL IRON BINDING Routine 10/17/2018 CAPACITY 5:03 AM CDT FERRITIN LEVEL Routine 10/17/2018 5:03 AM CDT VITAMIN B12 LEVEL Routine 10/17/2018 5:03 AM CDT FOLATE LEVEL Routine 10/17/2018 5:03 AM CDT HC COMPLETE BLD COUNT Routine 10/17/2018 W/AUTO DIFF 5:03 AM CDT RETICULOCYTE COUNT Routine 10/17/2018 5:03 AM CDT XR CHEST 1 VW PORTABLE Routine 10/16/2018 2:12 PM CDT HC CATH DUAL LUMEN PICC Routine 10/16/2018 10:56 AM CDT HC US GUIDED VASCULAR Routine 10/16/2018 ACCESS 10:56 AM CDT HC CVL PICC INSERT 5 YRS Routine 10/16/2018 OR > W/O IMG GUID 10:56 AM CDT XR PICC CHEST PORTABLE Routine 10/16/2018 Infection of elbow (HCC) 10:50 AM CDT HC COMPLETE BLD COUNT Timed 10/16/2018 W/AUTO DIFF 4:20 AM CDT ESTIMATED GFR Timed 10/16/2018 4:00 AM CDT VANCOMYCIN LEVEL, TROUGH Timed 10/16/2018 4:00 AM CDT C-REACTIVE PROTEIN Timed 10/16/2018 4:00 AM CDT BASIC METABOLIC PANEL Timed 10/16/2018 4:00 AM CDT ESTIMATED GFR Routine 10/15/2018 5:05 AM CDT C-REACTIVE PROTEIN Routine 10/15/2018 5:05 AM CDT BASIC METABOLIC PANEL Routine 10/15/2018 5:05 AM CDT HC COMPLETE BLD COUNT Routine 10/15/2018 W/AUTO DIFF 5:05 AM CDT US DUPLEX VENOUS LOWER Routine 10/14/2018 EXTREMITY BILATERAL 2:27 PM CDT INCISION AND DRAINAGE, 10/14/2018 Infection of elbow (HCC) UPPER EXTREMITY 11:00 AM CDT AFB STAIN Timed 10/14/2018 10:54 AM CDT AFB CULTURE Timed 10/14/2018 Infection of elbow (HCC) 10:54 AM CDT GRAM STAIN Timed 10/14/2018 10:41 AM CDT AFB STAIN Timed 10/14/2018 10:41 AM CDT JOINT FLUID CULTURE Timed 10/14/2018 10:41 AM CDT FUNGUS SMEAR Timed 10/14/2018 10:41 AM CDT AFB CULTURE Timed 10/14/2018 Infection of elbow (HCC) 10:41 AM CDT FUNGUS CULTURE Timed 10/14/2018 Infection of elbow (HCC) 10:41 AM CDT ANAEROBIC CULTURE Timed 10/14/2018 Infection of elbow (HCC) 10:41 AM CDT [place] AN ELECTIVE Routine 10/14/2018 SUPRAGLOTTIC AIRWAY 10:39 AM CDT Procedure Note - Jake Vanegas CRNA - 10/14/2018 10:39 AM CDT Airway Performed by: Jake Vanegas CRNA Authorized by: Dick Jimenez MD Location: [place] Urgency: Elective Difficult Airway: No Preoxygena isreal with 100% O2: Yes C-spine Precaution s Maintained Throughout : No Mask Ventilatio n: Easy mask Final Airway Type: Supraglott ic airway Final LMA: I-Gel LMA Size: 4 Number of Attempts at Approach: 1 TYPE AND SCREEN Routine 10/14/2018 8:39 AM CDT HC COMPLETE BLD COUNT STAT 10/14/2018 W/AUTO DIFF 8:21 AM CDT TROPONIN Routine 10/14/2018 7:36 AM CDT MANUAL DIFFERENTIAL Routine 10/14/2018 4:37 AM CDT CBC WITH PLATELET AND Routine 10/14/2018 DIFFERENTIAL 4:37 AM CDT IMMUNOFIXATION, SERUM Routine 10/14/2018 4:00 AM CDT HCV QUALITATIVE BY PCR Routine 10/14/2018 4:00 AM CDT HEPATITIS ACUTE PANEL Routine 10/14/2018 4:00 AM CDT SERUM ELECTROPHORESIS Routine 10/14/2018 4:00 AM CDT ESTIMATED GFR Timed 10/14/2018 3:11 AM CDT BASIC METABOLIC PANEL Timed 10/14/2018 3:11 AM CDT LACTIC ACID LEVEL, SEPSIS Timed 10/14/2018 - NOW AND REPEAT 2X EVERY 3:11 AM CDT [address] UPPER EXTREMITY WO STAT 10/14/2018 LEFT 1:38 AM CDT XR CHEST 1 VW PORTABLE Routine 10/14/2018 12:06 AM CDT ECG 12-LEAD Routine 10/13/2018 11:47 PM CDT GRAM STAIN Routine 10/13/2018 11:39 PM CDT AEROBIC CULTURE Routine 10/13/2018 11:39 PM CDT RESPIRATORY PATHOGEN Routine 10/13/2018 PANEL 11:39 PM CDT ANAEROBIC CULTURE Routine 10/13/2018 11:39 PM CDT SEDIMENTATION RATE STAT 10/13/2018 10:02 PM CDT GRAM STAIN Routine 10/13/2018 9:57 PM CDT AEROBIC CULTURE Routine 10/13/2018 9:57 PM CDT BLOOD CULTURE, AEROBIC & Routine 10/13/2018 ANAEROBIC 9:55 PM CDT XR ELBOW 3+ VW LEFT STAT 10/13/2018 9:32 PM CDT TROPONIN Timed 10/13/2018 9:20 PM CDT LACTIC ACID LEVEL, SEPSIS Timed 10/13/2018 - NOW AND REPEAT 2X EVERY 9:20 PM CDT 3 HOURS SEDIMENTATION RATE STAT 10/13/2018 8:50 PM CDT C-REACTIVE PROTEIN STAT 10/13/2018 8:50 PM CDT LACTIC ACID LEVEL, SEPSIS STAT 10/13/2018 - NOW AND REPEAT 2X EVERY 8:50 PM CDT 3 HOURS ESTIMATED GFR STAT 10/13/2018 8:50 PM CDT PARTIAL THROMBOPLASTIN STAT 10/13/2018 TIME (PTT) 8:50 PM CDT PROTHROMBIN TIME WITH INR STAT 10/13/2018 8:50 PM CDT COMPREHENSIVE METABOLIC STAT 10/13/2018 PANEL 8:50 PM CDT HC COMPLETE BLD COUNT STAT 10/13/2018 W/AUTO DIFF 8:50 PM CDT BLOOD CULTURE, AEROBIC & Routine 10/13/2018 ANAEROBIC 8:50 PM CDT ESTIMATED GFR Routine 09/30/2018 4:00 AM CDT PHOSPHORUS LEVEL Routine 09/30/2018 4:00 AM CDT MAGNESIUM LEVEL Routine 09/30/2018 4:00 AM CDT BASIC METABOLIC PANEL Routine 09/30/2018 4:00 AM CDT HC COMPLETE BLD COUNT Routine 09/30/2018 W/AUTO DIFF 4:00 AM CDT RESPIRATORY PATHOGEN Routine 09/29/2018 PANEL 9:00 PM CDT TROPONIN Timed 09/29/2018 5:04 PM CDT XR WRIST 3+ VW LEFT STAT 09/29/2018 1:33 PM CDT XR SHOULDER 2+ VW LEFT STAT 09/29/2018 1:32 PM CDT XR HUMERUS LEFT STAT 09/29/2018 1:32 PM CDT XR FOREARM 2 VW LEFT STAT 09/29/2018 1:31 PM CDT XR ELBOW 2 VW LEFT STAT 09/29/2018 1:30 PM CDT XR CHEST 1 VW PORTABLE STAT 09/29/2018 1:30 PM CDT ECG 12-LEAD STAT 09/29/2018 1:28 PM CDT TROPONIN Timed 09/29/2018 1:13 PM CDT LACTIC ACID LEVEL, SEPSIS Timed 09/29/2018 - NOW AND REPEAT 2X EVERY 1:13 PM CDT 3 HOURS TYPE AND SCREEN Routine 09/29/2018 1:13 PM CDT B NATRIURETIC PEPTIDE STAT 09/29/2018 1:12 PM CDT PARTIAL THROMBOPLASTIN STAT 09/29/2018 TIME (PTT) 1:12 PM CDT PROTHROMBIN TIME WITH INR STAT 09/29/2018 1:12 PM CDT HC COMPLETE BLD COUNT STAT 09/29/2018 W/AUTO DIFF 1:[address] CERVICAL SPINE WO STAT 09/29/2018 CONTRAST 12:[address] HEAD WO CONTRAST STAT 09/29/2018 12:33 PM CDT ECG ED PRELIMINARY Routine 09/29/2018 INTERPRETATION 11:51 AM CDT ESTIMATED GFR STAT 09/29/2018 11:04 AM CDT TROPONIN STAT 09/29/2018 11:04 AM CDT CREATINE KINASE, TOTAL STAT 09/29/2018 (CPK) 11:04 AM CDT LACTIC ACID LEVEL, SEPSIS STAT 09/29/2018 - NOW AND REPEAT 2X EVERY 11:04 AM CDT 3 HOURS COMPREHENSIVE METABOLIC STAT 09/29/2018 PANEL 11:04 AM CDT ECG 12-LEAD Routine 05/14/2018 3:50 PM AUTOPSY ASSISTANT POC GLUCOSE Routine 05/14/2018 12:12 PM AUTOPSY ASSISTANT PARTIAL THROMBOPLASTIN Routine 05/14/2018 TIME (PTT) 8:40 AM AUTOPSY ASSISTANT HC COMPLETE BLD COUNT Routine 05/14/2018 W/AUTO DIFF 8:40 AM AUTOPSY ASSISTANT POC GLUCOSE Routine 05/14/2018 7:59 AM AUTOPSY ASSISTANT ESTIMATED GFR Routine 05/14/2018 4:00 AM AUTOPSY ASSISTANT BASIC METABOLIC PANEL Routine 05/14/2018 4:00 AM AUTOPSY ASSISTANT PARTIAL THROMBOPLASTIN Timed 05/14/2018 TIME (PTT) 12:30 AM AUTOPSY ASSISTANT POC GLUCOSE Routine 05/13/2018 9:10 PM AUTOPSY ASSISTANT PARTIAL THROMBOPLASTIN Timed 05/13/2018 TIME (PTT) 6:24 PM AUTOPSY ASSISTANT POC GLUCOSE Routine 05/13/2018 4:52 PM AUTOPSY ASSISTANT POC GLUCOSE Routine 05/13/2018 12:03 PM AUTOPSY ASSISTANT PARTIAL THROMBOPLASTIN Routine 05/13/2018 TIME (PTT) 10:51 AM AUTOPSY ASSISTANT POC GLUCOSE Routine 05/13/2018 8:01 AM AUTOPSY ASSISTANT ESTIMATED GFR Routine 05/13/2018 4:00 AM AUTOPSY ASSISTANT PHOSPHORUS LEVEL Routine 05/13/2018 4:00 AM AUTOPSY ASSISTANT MAGNESIUM LEVEL Routine 05/13/2018 4:00 AM AUTOPSY ASSISTANT BASIC METABOLIC PANEL Routine 05/13/2018 4:00 AM AUTOPSY ASSISTANT PARTIAL THROMBOPLASTIN Routine 05/13/2018 TIME (PTT) 3:00 AM AUTOPSY ASSISTANT HC COMPLETE BLD COUNT Routine 05/13/2018 W/AUTO DIFF 3:00 AM AUTOPSY ASSISTANT POC GLUCOSE Routine 05/12/2018 9:12 PM AUTOPSY ASSISTANT PARTIAL THROMBOPLASTIN Routine 05/12/2018 TIME (PTT) 7:30 PM AUTOPSY ASSISTANT POC GLUCOSE Routine 05/12/2018 5:02 PM AUTOPSY ASSISTANT XR FEMUR 2 VW LEFT STAT 05/12/2018 4:56 PM AUTOPSY ASSISTANT POC GLUCOSE Routine 05/12/2018 12:13 PM AUTOPSY ASSISTANT PARTIAL THROMBOPLASTIN Routine 05/12/2018 TIME (PTT) 10:49 AM AUTOPSY ASSISTANT POC GLUCOSE Routine 05/12/2018 7:12 AM AUTOPSY ASSISTANT POC GLUCOSE Routine 05/12/2018 4:41 AM AUTOPSY ASSISTANT ESTIMATED GFR Routine 05/12/2018 2:09 AM AUTOPSY ASSISTANT PHOSPHORUS LEVEL Routine 05/12/2018 2:09 AM AUTOPSY ASSISTANT MAGNESIUM LEVEL Routine 05/12/2018 2:09 AM AUTOPSY ASSISTANT BASIC METABOLIC PANEL Routine 05/12/2018 2:09 AM AUTOPSY ASSISTANT PARTIAL THROMBOPLASTIN Routine 05/12/2018 TIME (PTT) 1:40 AM AUTOPSY ASSISTANT HC COMPLETE BLD COUNT Routine 05/12/2018 W/AUTO DIFF 1:40 AM AUTOPSY ASSISTANT POC GLUCOSE Routine 05/12/2018 12:44 AM AUTOPSY ASSISTANT SMEAR REVIEW Routine 05/11/2018 10:00 PM AUTOPSY ASSISTANT HC COMPLETE BLD COUNT Routine 05/11/2018 W/AUTO DIFF 10:00 PM AUTOPSY ASSISTANT POC GLUCOSE Routine 05/11/2018 9:14 PM AUTOPSY ASSISTANT XR FEMUR 2 VW LEFT STAT 05/11/2018 9:10 PM AUTOPSY ASSISTANT XR KNEE 3 VW LEFT STAT 05/11/2018 9:09 PM AUTOPSY ASSISTANT ANTI XA, UNFRACTIONATED STAT 05/11/2018 7:02 PM AUTOPSY ASSISTANT POC GLUCOSE Routine 05/11/2018 4:09 PM AUTOPSY ASSISTANT POC GLUCOSE Routine 05/11/2018 11:51 AM AUTOPSY ASSISTANT XR KNEE 3 VW RIGHT STAT 05/11/2018 10:29 AM AUTOPSY ASSISTANT POC GLUCOSE Routine 05/11/2018 8:03 AM AUTOPSY ASSISTANT POC GLUCOSE Routine 05/11/2018 5:00 AM AUTOPSY ASSISTANT ECG 12-LEAD Routine 05/11/2018 1:20 AM AUTOPSY ASSISTANT ESTIMATED GFR Routine 05/11/2018 12:10 AM AUTOPSY ASSISTANT PHOSPHORUS LEVEL Routine 05/11/2018 12:10 AM AUTOPSY ASSISTANT MAGNESIUM LEVEL Routine 05/11/2018 12:10 AM AUTOPSY ASSISTANT BASIC METABOLIC PANEL Routine 05/11/2018 12:10 AM AUTOPSY ASSISTANT HC COMPLETE BLD COUNT Routine 05/11/2018 W/AUTO DIFF 12:10 AM AUTOPSY ASSISTANT POC GLUCOSE Routine 05/11/2018 12:09 AM AUTOPSY ASSISTANT POC GLUCOSE Routine 2018 8:17 PM AUTOPSY ASSISTANT POC GLUCOSE Routine 2018 4:04 PM AUTOPSY ASSISTANT POC GLUCOSE Routine 2018 12:28 PM AUTOPSY ASSISTANT POC GLUCOSE Routine 2018 8:03 AM AUTOPSY ASSISTANT HEMOGLOBIN Routine 2018 8:02 AM AUTOPSY ASSISTANT ANTI XA, UNFRACTIONATED Routine 2018 8:02 AM AUTOPSY ASSISTANT TRANSFUSE RED BLOOD CELLS STAT 2018 6:20 AM AUTOPSY ASSISTANT POC GLUCOSE Routine 2018 4:48 AM AUTOPSY ASSISTANT PREPARE RBC Routine 2018 3:30 AM AUTOPSY ASSISTANT TYPE AND SCREEN Routine 2018 3:30 AM AUTOPSY ASSISTANT THYROID STIMULATING Routine 2018 HORMONE 2:12 AM AUTOPSY ASSISTANT PHOSPHORUS LEVEL Routine 2018 2:12 AM AUTOPSY ASSISTANT HEPATIC FUNCTION PANEL Routine 2018 2:12 AM AUTOPSY ASSISTANT ESTIMATED GFR Routine 2018 2:12 AM AUTOPSY ASSISTANT MAGNESIUM LEVEL Routine 2018 2:12 AM AUTOPSY ASSISTANT BASIC METABOLIC PANEL Routine 2018 2:12 AM AUTOPSY ASSISTANT ANTI XA, UNFRACTIONATED Routine 2018 1:50 AM AUTOPSY ASSISTANT HC COMPLETE BLD COUNT Routine 2018 W/AUTO DIFF 1:50 AM AUTOPSY ASSISTANT POC GLUCOSE Routine 2018 12:24 AM AUTOPSY ASSISTANT POC GLUCOSE Routine 05/09/2018 8:38 PM AUTOPSY ASSISTANT ECG 12-LEAD STAT 05/09/2018 7:32 PM AUTOPSY ASSISTANT ESTIMATED GFR STAT 05/09/2018 6:50 PM AUTOPSY ASSISTANT PHOSPHORUS LEVEL STAT 05/09/2018 6:50 PM AUTOPSY ASSISTANT MAGNESIUM LEVEL STAT 05/09/2018 6:50 PM AUTOPSY ASSISTANT BASIC METABOLIC PANEL STAT 05/09/2018 6:50 PM AUTOPSY ASSISTANT TROPONIN STAT 05/09/2018 6:50 PM AUTOPSY ASSISTANT XR CHEST 1 VW PORTABLE STAT 05/09/2018 5:49 PM AUTOPSY ASSISTANT POC GLUCOSE Routine 05/09/2018 4:00 PM AUTOPSY ASSISTANT POC GLUCOSE Routine 05/09/2018 11:32 AM AUTOPSY ASSISTANT POC GLUCOSE Routine 05/09/2018 7:21 AM AUTOPSY ASSISTANT POC GLUCOSE Routine 05/09/2018 5:02 AM AUTOPSY ASSISTANT ESTIMATED GFR Routine 05/09/2018 1:28 AM AUTOPSY ASSISTANT PHOSPHORUS LEVEL Routine 05/09/2018 1:28 AM AUTOPSY ASSISTANT MAGNESIUM LEVEL Routine 05/09/2018 1:28 AM AUTOPSY ASSISTANT BASIC METABOLIC PANEL Routine 05/09/2018 1:28 AM AUTOPSY ASSISTANT PROTHROMBIN TIME WITH INR Routine 05/09/2018 1:28 AM AUTOPSY ASSISTANT FIBRINOGEN Routine 05/09/2018 1:28 AM AUTOPSY ASSISTANT PARTIAL THROMBOPLASTIN Routine 05/09/2018 TIME (PTT) 1:28 AM AUTOPSY ASSISTANT LDH Routine 05/09/2018 1:28 AM AUTOPSY ASSISTANT HEPATIC FUNCTION PANEL Routine 05/09/2018 1:28 AM AUTOPSY ASSISTANT IONIZED CALCIUM Routine 05/09/2018 1:28 AM AUTOPSY ASSISTANT HC COMPLETE BLD COUNT Routine 05/09/2018 W/AUTO DIFF 1:28 AM AUTOPSY ASSISTANT POC GLUCOSE Routine 05/09/2018 12:29 AM AUTOPSY ASSISTANT POC GLUCOSE Routine 05/08/2018 8:43 PM AUTOPSY ASSISTANT ECG 12-LEAD Routine 05/08/2018 7:30 PM AUTOPSY ASSISTANT POC GLUCOSE Routine 05/08/2018 3:30 PM AUTOPSY ASSISTANT US DUPLEX VENOUS UPPER STAT 05/08/2018 EXTREMITY BILATERAL 2:00 PM AUTOPSY ASSISTANT US DUPLEX VENOUS LOWER STAT 05/08/2018 EXTREMITY BILATERAL 1:30 PM AUTOPSY ASSISTANT POC GLUCOSE Routine 05/08/2018 11:58 AM AUTOPSY ASSISTANT XR CHEST 1 VW PORTABLE STAT 05/08/2018 10:25 AM AUTOPSY ASSISTANT POC GLUCOSE Routine 05/08/2018 7:47 AM AUTOPSY ASSISTANT POC GLUCOSE Routine 05/08/2018 5:06 AM AUTOPSY ASSISTANT POC GLUCOSE Routine 05/08/2018 5:04 AM AUTOPSY ASSISTANT HC COMPLETE BLD COUNT STAT 05/08/2018 W/AUTO DIFF 5:03 AM AUTOPSY ASSISTANT POC GLUCOSE Routine 05/08/2018 4:48 AM AUTOPSY ASSISTANT FIBRINOGEN Routine 05/08/2018 1:45 AM AUTOPSY ASSISTANT ESTIMATED GFR Routine 05/08/2018 1:45 AM AUTOPSY ASSISTANT PROTHROMBIN TIME WITH INR Routine 05/08/2018 1:45 AM AUTOPSY ASSISTANT PARTIAL THROMBOPLASTIN Routine 05/08/2018 TIME (PTT) 1:45 AM AUTOPSY ASSISTANT HC COMPLETE BLD COUNT Routine 05/08/2018 W/AUTO DIFF 1:45 AM AUTOPSY ASSISTANT PHOSPHORUS LEVEL Routine 05/08/2018 1:45 AM AUTOPSY ASSISTANT MAGNESIUM LEVEL Routine 05/08/2018 1:45 AM AUTOPSY ASSISTANT IONIZED CALCIUM, ARTERIAL Routine 05/08/2018 1:45 AM AUTOPSY ASSISTANT LACTIC ACID LEVEL Routine 05/08/2018 1:45 AM AUTOPSY ASSISTANT ARTERIAL BLOOD GAS Routine 05/08/2018 1:45 AM AUTOPSY ASSISTANT BASIC METABOLIC PANEL Routine 05/08/2018 1:45 AM AUTOPSY ASSISTANT POC GLUCOSE Routine 05/08/2018 12:45 AM AUTOPSY ASSISTANT ECHOCARDIOGRAM 2D STAT 05/07/2018 COMPLETE W MMODE SPECTRAL 11:45 PM AUTOPSY ASSISTANT COLOR DOPPLER (52722) PARTIAL THROMBOPLASTIN Routine 05/07/2018 TIME (PTT) 10:00 PM AUTOPSY ASSISTANT ANTI XA, UNFRACTIONATED Routine 05/07/2018 10:00 PM AUTOPSY ASSISTANT POC GLUCOSE Routine 05/07/2018 8:[address] ANGIOGRAM PE CHEST STAT 05/07/2018 8:46 PM AUTOPSY ASSISTANT ECG 12-LEAD Routine 05/07/2018 8:08 PM AUTOPSY ASSISTANT ESTIMATED GFR Routine 05/07/2018 7:30 PM AUTOPSY ASSISTANT IONIZED CALCIUM, ARTERIAL Routine 05/07/2018 7:30 PM AUTOPSY ASSISTANT HC COMPLETE BLD COUNT Routine 05/07/2018 W/AUTO DIFF 7:30 PM AUTOPSY ASSISTANT LACTIC ACID LEVEL Routine 05/07/2018 7:30 PM AUTOPSY ASSISTANT PHOSPHORUS LEVEL Routine 05/07/2018 7:30 PM AUTOPSY ASSISTANT MAGNESIUM LEVEL Routine 05/07/2018 7:30 PM AUTOPSY ASSISTANT ARTERIAL BLOOD GAS Routine 05/07/2018 7:30 PM AUTOPSY ASSISTANT BASIC METABOLIC PANEL Routine 05/07/2018 7:30 PM AUTOPSY ASSISTANT PROTHROMBIN TIME WITH INR Routine 05/07/2018 7:13 PM AUTOPSY ASSISTANT ANTI XA, UNFRACTIONATED Routine 05/07/2018 7:13 PM AUTOPSY ASSISTANT PARTIAL THROMBOPLASTIN Routine 05/07/2018 TIME (PTT) 7:13 PM AUTOPSY ASSISTANT XR ABDOMEN 1 VW PORTABLE STAT 05/07/2018 6:45 PM AUTOPSY ASSISTANT XR CHEST 1 VW PORTABLE Routine 05/07/2018 6:44 PM AUTOPSY ASSISTANT URINALYSIS SCREEN AND STAT 05/07/2018 MICROSCOPY, WITH REFLEX 6:20 PM AUTOPSY ASSISTANT TO CULTURE URINE CULTURE STAT 05/07/2018 6:20 PM AUTOPSY ASSISTANT TRANSFUSE RED BLOOD CELLS Routine 05/07/2018 6:19 PM AUTOPSY ASSISTANT TRANSFUSE FRESH FROZEN Routine 05/07/2018 PLASMA UNMATCHED 6:07 PM AUTOPSY ASSISTANT OR FL > 1 HOUR Routine 05/07/2018 5:30 PM AUTOPSY ASSISTANT XR CHEST 1 VW PORTABLE STAT 05/07/2018 5:13 PM AUTOPSY ASSISTANT IONIZED CALCIUM, ARTERIAL STAT 05/07/2018 5:01 PM AUTOPSY ASSISTANT GLUCOSE LEVEL, SYRINGE STAT 05/07/2018 5:01 PM AUTOPSY ASSISTANT HEMOGLOBIN, SYRINGE STAT 05/07/2018 5:01 PM AUTOPSY ASSISTANT POTASSIUM, SYRINGE STAT 05/07/2018 5:01 PM AUTOPSY ASSISTANT SODIUM LEVEL, SYRINGE STAT 05/07/2018 5:01 PM AUTOPSY ASSISTANT ARTERIAL BLOOD GAS STAT 05/07/2018 5:01 PM AUTOPSY ASSISTANT TRANSFUSE RED BLOOD CELLS Routine 05/07/2018 4:42 PM AUTOPSY ASSISTANT TRANSFUSE RED BLOOD CELLS Routine 05/07/2018 4:37 PM AUTOPSY ASSISTANT GLUCOSE LEVEL, SYRINGE STAT 05/07/2018 1:31 PM AUTOPSY ASSISTANT HEMOGLOBIN, SYRINGE STAT 05/07/2018 1:31 PM AUTOPSY ASSISTANT IONIZED CALCIUM, ARTERIAL STAT 05/07/2018 1:31 PM AUTOPSY ASSISTANT SODIUM LEVEL, SYRINGE STAT 05/07/2018 1:31 PM AUTOPSY ASSISTANT POTASSIUM, SYRINGE STAT 05/07/2018 1:31 PM AUTOPSY ASSISTANT ARTERIAL BLOOD GAS STAT 05/07/2018 1:31 PM AUTOPSY ASSISTANT CENTRAL LINE Routine 05/07/2018 12:28 PM AUTOPSY ASSISTANT Procedure Note - Vannesa Borjas MD - 05/07/2018 12:28 PM AUTOPSY ASSISTANT Central line Performed by: VANNESA BORJAS Authorized by: VANNESA BORJAS Patient Location: OR Start Time: 05/07/2018 11:55 AM End Time: 05/07/2018 12:10 PM Staff: Anesthesio logist: VANNESA BORJAS Performed by: Anesthesio logistheodore Preprocedu re:patient identified , IV checked, site and side verified, risks and benefits discussed, procedure verified, surgical consent complete, patient position confirmed, monitors and equipment checked and pre-op evaluation complete MSBT: antiseptic used during central venous catheter insertion, all elements of maximal sterile barrier technique followed, hand hygiene performed prior to central venous catheter insertion, cap/gown used by other personnel during central venous catheter insertion, solutions labeled and all ports not used during insertion clamped TIme Out Performed: 05/07/2018 11:30 AM Indication s: Indication s: Central pressure monitoring and vascular access Anesthesia : Anesthesia : General Procedure details: Patient position: Supine Catheter Type: Double lumen Catheter Size: 7 Fr Catheter Site: internal jugular vein Catheter site laterality : Left Pre-proced ure: Landmarks identified Ultrasound guidance used: Yes Ultrasound image saved: No Number of attempts: 1 Successful placement: Yes Guidewire removal: Guidewire removal is confirmed Guidewire removal witness: Dhruv Chávez. Post-proce dure: Post-proce dure: line sutured, sterile dressing applied per protocol and ports flushed with saline Post-proce dure: Sterile caps on all hubs and blood cleaned with CHG Assessment : Blood return through all ports and free fluid flow Patient tolerance: Patient tolerated the procedure well with no immediate complicati ons ARTERIAL LINE Routine 05/07/2018 12:27 PM AUTOPSY ASSISTANT Procedure Note - Vannesa Borjas MD - 05/07/2018 12:27 PM AUTOPSY ASSISTANT Arterial line Performed by: VANNESA BORJAS Authorized by: VANNESA BORJAS Patient Location: OR Start Time: 05/07/2018 11:38 AM End Time: 05/07/2018 11:40 AM Staff: Diane hernandez: VANNESA BORJAS Performed by: Diane hernandez Pre-proced ure: patient identified , IV checked, site and side verified, risks and benefits discussed, procedure verified, surgical consent complete, patient position confirmed, monitors and equipment checked and pre-op evaluation complete MSBT: antiseptic used, all elements of maximal sterile barrier technique followed, hand hygiene performed, cap/gown used by other personnel and solutions labeled TIme Out Performed: 05/07/2018 11:30 AM Indication s: Indication s: multiple ABGs and hemodynami c monitoring Anesthesia : Anesthesia : General Procedure Details: Arterial Line placement: Placed post induction Line placement site: Radial Line placement side: Right Arterial line gauge: 20 G Number of attempts: 1 Ultrasound guidance used: No Post-proce dure: Post-proce dure: Sterile dressing applied Post procedure circulatio n, sensation, movement: Normal Patient tolerance: Patient tolerated the procedure well with no immediate complicati ons ORIF, FRACTURE, FEMUR 05/07/2018 Closed fracture of distal 9:30 AM AUTOPSY ASSISTANT end of humerus, initial encounter Special Needs LARGE C-ARM ORIF, HUMERUS, PROXIMAL 05/07/2018 Closed fracture of distal 9:30 AM AUTOPSY ASSISTANT end of humerus, initial encounter Special Needs LARGE C-ARM ESTIMATED GFR Routine 05/07/2018 2:47 AM AUTOPSY ASSISTANT BASIC METABOLIC PANEL Routine 05/07/2018 2:47 AM AUTOPSY ASSISTANT HC COMPLETE BLD COUNT Routine 05/07/2018 W/AUTO DIFF 2:47 AM AUTOPSY ASSISTANT ECG PRE/POST OP Routine 05/06/2018 12:10 PM AUTOPSY ASSISTANT ECG PRE/POST OP Routine 05/06/2018 8:48 AM AUTOPSY ASSISTANT PROTHROMBIN TIME WITH INR Routine 05/06/2018 5:17 AM AUTOPSY ASSISTANT HC COMPLETE BLD COUNT Routine 05/06/2018 W/AUTO DIFF 5:17 AM AUTOPSY ASSISTANT B NATRIURETIC PEPTIDE Routine 05/06/2018 5:17 AM AUTOPSY ASSISTANT PREPARE RBC Timed 05/06/2018 4:30 AM AUTOPSY ASSISTANT PREPARE FRESH FROZEN Timed 05/06/2018 PLASMA 4:30 AM AUTOPSY ASSISTANT PREPARE RBC Timed 05/06/2018 4:30 AM AUTOPSY ASSISTANT TYPE AND SCREEN Routine 05/06/2018 4:[address] UPPER EXTREMITY WO STAT 05/05/2018 LEFT 10:[address] LOWER EXTREMITY WO STAT 05/05/2018 CONTRAST LEFT 10:55 PM AUTOPSY ASSISTANT XR SHOULDER 2+ VW LEFT STAT 05/05/2018 10:15 PM AUTOPSY ASSISTANT XR PELVIS 1 OR 2 VW STAT 05/05/2018 10:15 PM AUTOPSY ASSISTANT XR KNEE 1 OR 2 VW LEFT Routine 05/05/2018 10:15 PM AUTOPSY ASSISTANT XR HUMERUS LEFT STAT 05/05/2018 10:14 PM AUTOPSY ASSISTANT XR HAND 3+ VW RIGHT STAT 05/05/2018 10:14 PM AUTOPSY ASSISTANT XR FEMUR 2 VW LEFT STAT 05/05/2018 10:13 PM AUTOPSY ASSISTANT XR ELBOW 2 VW LEFT STAT 05/05/2018 10:13 PM AUTOPSY ASSISTANT XR CHEST 1 VW Routine 05/05/2018 10:13 PM AUTOPSY ASSISTANT MAGNESIUM LEVEL Routine 05/05/2018 9:39 PM AUTOPSY ASSISTANT ESTIMATED GFR Routine 05/05/2018 9:38 PM AUTOPSY ASSISTANT COMPREHENSIVE METABOLIC Routine 05/05/2018 PANEL 9:38 PM AUTOPSY ASSISTANT after 01/28/2018 Results * Troponin (01/28/2019 8:56 PM CDT) Only the most recent of 15 results within the time period is included. Pathologist [facility] Troponin <0.006 0.000 - 0.040 ng/mL [place] Comment: [facility] changed methodology effective: 11/02/2018 at 10:00 am The new method has a 99th percentile cutoff of 0.040 ng/mL Specimen Plasma specimen Performing Organization Address City/[facility] Phone Number [facility] DEPARTMENT OF [address] [place] [address] PATHOLOGY [facility] MEDICINE [address] * Venous blood gas (01/28/2019 8:56 PM CDT) Pathologist [facility] pH, venous 7.38 7.32 - 7.42 [facility] pCO2, venous 56 (H) 45 - 51 mmHg [facility] pO2, venous 35 25 - 40 mmHg [facility] Base excess, 7 (H) -2 - 2 meq/L [facility] O2 saturation, 60 40 - 70 % [facility] Bicarbonate, 32.7 (H) 21.0 - 28.0 mmol/L [facility] Specimen Blood Performing Organization Address City/[facility] Cent[facility] Phone Number [facility] DEPARTMENT OF [address] [place] [address] PATHOLOGY AND [facility] MEDICINE [address] * XR Sacrum And Coccyx (01/28/2019 7:37 PM CDT) Specimen Narrative Performed At EXAMINATION:XR SACRUM AND COCCYX [facility] CLINICAL HISTORY:r o frx of coccyx COMPARISON:None. IMPRESSION: The sacrum and coccyx appear appropriately aligned. There is generalized bone demineralization. No obvious acute fracture. [facility]-[id number] Procedure Note Interface, Radiology Results Incoming - 01/28/2019 7:42 PM CDT EXAMINATION: XR SACRUM AND COCCYX CLINICAL HISTORY: r o frx of coccyx COMPARISON: None. IMPRESSION: The sacrum and coccyx appear appropriately aligned. There is generalized bone demineralization. No obvious acute fracture. [facility]-[id number] Performing Organization Address [facility], [place] Phone Number [facility] [address] [place] [address] * XR Chest 1 Vw (01/28/2019 7:37 PM CDT) Only the most recent of 3 results within the time period is included. Specimen Narrative Performed At EXAMINATION:XR CHEST 1 VW [facility] CLINICAL HISTORY:Chest pain or SOBpleurisy or effusion suspected COMPARISON:None. IMPRESSION: The heart is slightly enlarged Atelectasis left lower lobe Age related changes are present throughout the bony structures without evidence of a suspicious focal lesion. Mild calcified atherosclerotic vascular disease throughout the arterial structures. [facility]-[id number] Procedure Note Interface, Radiology Results Incoming - 01/28/2019 7:46 PM CDT EXAMINATION: XR CHEST 1 VW CLINICAL HISTORY: Chest pain or SOB pleurisy or effusion suspected COMPARISON: None. IMPRESSION: The heart is slightly enlarged Atelectasis left lower lobe Age related changes are present throughout the bony structures without evidence of a suspicious focal lesion. Mild calcified atherosclerotic vascular disease throughout the arterial structures. [facility]-[id number] Performing Organization Address [facility], [place] Phone Number [facility] [address] [place] [address] * CT Lumbar Spine Wo Contrast (01/28/2019 7:16 PM CDT) Specimen Narrative Performed At EXAMINATION: CT LUMBAR SPINE WO CONTRAST [facility] CLINICAL HISTORY: compression fracture COMPARISON:None TECHNIQUE: Noncontrast enhanced imaging through the lumbar spine was performed with coronal and sagittal reconstructed images. CT scans are performed using radiation dose reduction techniques (iterative reconstruction and/or automated exposure control). Technical factors are evaluated and adjusted to ensure appropriate moderation of exposure. Automated dose management technology is applied to adjust radiation exposure while achieving a diagnostic quality image. FINDINGS: Generalized bone demineralization. No acute fractures or subluxations. There is mild vertebral body height loss at L2 and L3. No soft tissue abnormalities are seen. Degenerative change: Right convex scoliosis of the lower thoracic and upper lumbar spine, with curvature centered at T12-L1. Rotatory leftward curvature of the lower lumbar spine. L1-L2: Degenerative disc changes with superimposed facet hypertrophy, left greater than right, contributing to severe left foraminal stenosis. No central or right foraminal stenosis. L2-L3: Degenerative disc changes with calcified disc osteophyte complex, thickening of ligamentum flavum, and facet hypertrophy, contributing to moderate central and severe left/moderate right foraminal stenosis. L3-L4: Severe degenerative disc changes with thickening of the ligamentum flavum, contributing to mild central and moderate bilateral foraminal stenosis. L4-L5: Degenerative disc changes with central disc protrusion and thickening of ligamentum flavum, and facet hypertrophy, contributing to severe right and mild left foraminal stenosis. No central stenosis. L5-S1: Diffuse disc bulge with bilateral mild facet hypertrophy, contributing to moderate right and mild left foraminal stenosis. IMPRESSION: No acute lumbar abnormality. Degenerative changes as described above. [facility]-[id number] Procedure Note [facility], Radiology Results Incoming - 01/28/2019 7:33 PM CDT EXAMINATION: CT LUMBAR SPINE WO CONTRAST CLINICAL HISTORY: compression fracture COMPARISON: None TECHNIQUE: Noncontrast enhanced imaging through the lumbar spine was performed with coronal and sagittal reconstructed images. CT scans are performed using radiation dose reduction techniques (iterative reconstruction and/or automated exposure control). Technical factors are evaluated and adjusted to ensure appropriate moderation of exposure. Automated dose management technology is applied to adjust radiation exposure while achieving a diagnostic quality image. FINDINGS: Generalized bone demineralization. No acute fractures or subluxations. There is mild vertebral body height loss at L2 and L3. No soft tissue abnormalities are seen. Degenerative change: Right convex scoliosis of the lower thoracic and upper lumbar spine, with curvature centered at T12-L1. Rotatory leftward curvature of the lower lumbar spine. L1-L2: Degenerative disc changes with superimposed facet hypertrophy, left greater than right, contributing to severe left foraminal stenosis. No central or right foraminal stenosis. L2-L3: Degenerative disc changes with calcified disc osteophyte complex, thickening of ligamentum flavum, and facet hypertrophy, contributing to moderate central and severe left/moderate right foraminal stenosis. L3-L4: Severe degenerative disc changes with thickening of the ligamentum flavum, contributing to mild central and moderate bilateral foraminal stenosis. L4-L5: Degenerative disc changes with central disc protrusion and thickening of ligamentum flavum, and facet hypertrophy, contributing to severe right and mild left foraminal stenosis. No central stenosis. L5-S1: Diffuse disc bulge with bilateral mild facet hypertrophy, contributing to moderate right and mild left foraminal stenosis. IMPRESSION: No acute lumbar abnormality. Degenerative changes as described above. [facility]-[id number] Performing Organization Address City/[facility]/[place] [address] * Estimated GFR (01/28/2019 5:33 PM CDT) Only the most recent of 34 results within the time period is included. [facility] Estimated GFR 72 mL/min/1.73 m2 [place] Comment: U[facility] rpretation G1 >=90 Normal or high G2 60-89Mildly decreased [id number] Mildly to moderately decreased [id number] Moderately to severely decreased G4 15-29Severely decreased G5 <15Kidney failure The eGFR was calculated using the Chronic Kidney Disease Epidemiology Collaboration (CKD-EPI) equation. Interpretation is based on recommendations of the National Kidney Foundation-Kidney Disease Outcomes Quality Initiative (NKF-KDOQI) published in 2014. Specimen Plasma specimen Performing Organization Address [facility] Cent[facility]ode Phone Number [facility] [place] [address] PATHOLOGY AND [facility] MEDICINE [place] [facility] [address] [place] [address] * Partial thromboplastin time, activated (01/28/2019 5:33 PM CDT) Only the most recent of 16 results within the time period is included. [facility] PTT 30.5 23.0 - 36.0 sec [place] Comment: [facility] PTT therapeutic range for HOSPITAL unfractionated heparin is 61.0-112.0 seconds which corresponds to Anti-Xa 0.3-0.7 U/ml. Specimen Blood Performing Organization Address [facility] Centercode Phone Number [facility] [place] [place] [address] PATHOLOGY AND [facility] MEDICINE [place] [facility] * Prothrombin time with INR (01/28/2019 5:33 PM CDT) Only the most recent of 8 results within the time period is included. Pathologist [facility] Prothrombin 12.9 11.5 - 14.5 sec [facility] INR 1.0 [place] Comment: [facility] The International Normalized HOSPITAL Ratio (INR) is a therapeutic monitoring tool for patients who are stable on oral anticoagulant therapy. An INR of 2.0-3.0 is suggested for deep vein thrombosis/pulmonary embolism. Specimen Blood Performing Organization Address City/[facility] Cent[facility]ode Phone Number [facility] DEPARTMENT OF [address] [place] [address] PATH[address] * D-dimer (01/28/2019 5:33 PM CDT) [facility] D-dimer 0.61 (H) 0.00 - 0.40 ug/mL [place] Comment: FEU [facility] Units are ug/ml Fibrinogen HOSPITAL Equivalent Unit. When combined with low clinical probability, D-dimer results of less than 0.5 ug/ml FEU have a good negativepredictive value in excluding PE or DVT. For D-dimer results greater than 0.5ug/ml FEU further testing is indicated if PE or DVT is suspectedclinically. Elevated D-dimer results have been reported in DVT, PE, and DIC cases and may indicate the presence of a clot. D-dimer results may be elevated due to old age, , inflammatory diseases, trauma, post-operative states, sepsis, and malignancies. Specimen Blood Performing Organization Address City/[facility] Phone Number [facility] DEPARTMENT OF [address] [place] [address] PATHOLOGY AND [facility] MEDICINE [address] * CBC with platelet and differential (01/28/2019 5:33 PM CDT) Only the most recent of 34 results within the time period is included. [facility] WBC 5.59 4.50 - 11.00 k/uL [facility] RBC 4.33 4.20 - 5.50 m/uL [facility] HGB 11.4 (L) 12.0 - 16.0 g/dL [facility] HCT 38.5 37.0 - 47.0 % [facility] MCV 88.9 82.0 - 100.0 fL [facility] MCH 26.3 (L) 27.0 - 34.0 pg [facility] MCHC 29.6 (L) 31.0 - 37.0 g/dL [facility] RDW - SD 52.3 37.0 - 55.0 fL [facility] MPV 9.8 8.8 - 13.2 fL [facility] Platelet count 260 150 - 400 k/uL [facility] Nucleated RBC 0.00 /100 WBC [facility] Neutrophils 58.5 39.0 - 69.0 % [facility] Lymphocytes 28.8 25.0 - 45.0 % [facility] Monocytes 10.4 (H) 0.0 - 10.0 % [facility] Eosinophils 1.8 0.0 - 5.0 % [facility] Basophils 0.5 0.0 - 1.0 % [facility] Immature 0.0Comment: "Immature 0.0 - 1.0 % [place] granulocytes granulocytes" (promyelocytes, U[facility]IN myelocytes, metamyelocytes) HOSPITAL Specimen Blood Performing Organization Address City/[facility] Centerc[facility] Phone Number [facility] [place] [place] [address] PATHOLOGY AND GENOMIC MEDICINE [address] * B natriuretic peptide (01/28/2019 5:33 PM CDT) Only the most recent of 6 results within the time period is included. BNP 116 (H) 0 - 100 pg/mL [facility] Specimen Blood Performing Organization Address City/[facility] Centercode Phone Number [facility] [place] [place] [address] PATHOLOGY AND GENOMIC MEDICINE [address] * Lactic acid level (01/28/2019 5:33 PM CDT) Only the most recent of 3 results within the time period is included. Lactic acid 2.3 (H) 0.5 - 2.2 mmol/L [facility] Specimen Plasma specimen Performing Organization Address City/[facility] Phone Number [facility] [place] [place] [address] PATHOLOGY AND GENOMIC MEDICINE [address] * Creatine kinase, total (CPK) (01/28/2019 5:33 PM CDT) Only the most recent of 3 results within the time period is included. Creatine kinase 23 (L) 26 - 192 U/L [facility] Specimen Plasma specimen Performing Organization Address City/[facility] [place] [address] PATHOLOGY AND GENOMIC MEDICINE [address] * Comprehensive metabolic panel (01/28/2019 5:33 PM CDT) Only the most recent of 10 results within the time period is included. Pathologist [facility] Sodium 139 135 - 148 mEq/L [facility] Potassium 4.0 3.5 - 5.0 mEq/L [facility] Chloride 97 (L) 98 - 112 mEq/L [facility] CO2 29 24 - 31 mEq/L [facility] Anion gap 13@ANIO 7 - 15 mEq/L [facility] BUN 25 (H) 8 - 23 mg/dL [facility] Creatinine 0.79 0.50 - 0.90 mg/dL [facility] Glucose 96 65 - 99 mg/dL [facility] Calcium 9.2 8.8 - 10.2 mg/dL [facility] Protein 7.4 6.3 - 8.3 g/dL [place] Comment: [facility] 4.6-7.0 g/dL 1 week 4.4-7.6 g/dL 7 months-1year 5.1-7.3 g/dL 1-2 years5.6-7 .5 g/dL >3 years6.0-8 .0 g/dL 18-150 6.3-8.3 g/dL Albumin 3.2 (L) 3.5 - 5.0 g/dL [facility] A/G ratio 0.8 0.7 - 3.8 [facility] Alkaline 130 (H) 35 - 104 U/L [place] phosphatase [facility] AST 19 10 - 35 U/L [facility] ALT 15 5 - 50 U/L [facility] Total bilirubin 0.3 0.0 - 1.2 mg/dL [facility] Specimen Plasma specimen Performing Organization Address City/[facility]/Zipcode Phone Number [facility] DEPARTMENT OF [address] [place] [address] PATHOLOGY AND GENOMIC MEDICINE [place] [facility] [address] [place] [address] HOSPITAL * ECG ED Preliminary Interpretation - Not an Order (01/11/2019 11:53 PM CDT) Only the most recent of 3 results within the time period is included. Narrative Performed At Diamond Bhatia MD 01/15/2019 10:56 AM ECG ED Preliminary Interpretation - Not an Order Performed by: Diamond Bhatia MD Authorized by: Diamond Bhatia MD ECG reviewed by ED Physician in the absence of a parliamentary counsel: yes Rate: ECG rate:86 ECG rate assessment: normal Rhythm: Rhythm: sinus rhythm QRS: QRS axis:Normal QRS intervals:Normal ST segments: ST segments:Normal * ECG 12 lead (01/11/2019 9:50 PM CDT) Only the most recent of 11 results within the time period is included. Ventricular 86 [facility] rate Atrial rate 86 [facility] [place] interval 214 [facility] QRSD interval 84 [facility] QT interval 384 [facility] QTC interval 459 [facility] P axis 1 22 [facility] QRS axis 1 39 [facility] T wave axis 41 [facility] EKG impression Sinus rhythm with 1st degree [facility] AV block with premature atrial complexes-Otherwise normal ECG-In automated comparison with ECG of 02-JAN-2019 22:22,-[place] interval has increased-Nonspecific T wave abnormality no longer evident in Lateral leads- Specimen Narrative Performed At Performing Organization Address City/State/Zipcode Phone Number [facility] MUSE [address] [place] [address] * POC glucose (01/09/2019 4:18 PM CDT) Only the most recent of 41 results within the time period is included. POC glucose 107 (H) 65 - 99 mg/dL [place] Comment: [facility] Notified RN HOSPITAL Meter ID: [id number] Welfare Adviser: Raquel Miller Specimen Performing Organization Address City/State/Zipcode Phone Number [facility] DEPARTMENT OF [address] [place] [address] [facility] PATHOLOGY AND GENOMIC MEDICINE [address] * Magnesium level (01/07/2019 4:00 AM CDT) Only the most recent of 16 results within the time period is included. Magnesium 2.3 1.6 - 2.4 mg/dL [facility] Specimen Plasma specimen Performing Organization Address City/[facility] Phone Number [facility] [place] [place] [address] PATHOLOGY AND GENOMIC MEDICINE [address] * Smear review (01/05/2019 5:30 AM CDT) Only the most recent of 2 results within the time period is included. Platelet slide [place]gh[place] adequate [facility] Anisocytosis Moderate [facility] Polychromasia Moderate [facility] Ovalocytes Moderate [facility] Enlarged Moderate (A) [facility] Giant platelets Occasional [facility] Specimen Performing Organization Address [facility] [place], [place] Phone Number [facility] [place] [place] [address] PATHOLOGY AND GENOMIC MEDICINE [address] * Urinalysis screen and microscopy, with reflex to culture (01/03/2019 1:55 PM CDT) Only the most recent of 3 results within the time period is included. Specimen site Catheterized [facility] Color, UA Straw [facility] Appearance, UA Clear [facility] Specific 1.013 1.001 - 1.035 [place] gravity, [facility] pH, UA 6.0 5.0 - 8.5 [facility] Protein, UA Negative Negative [facility] Glucose, UA Negative Negative [facility] Ketones, UA Negative Negative [facility] Bilirubin, UA Negative Negative [facility] Blood, UA Negative Negative [facility] Nitrite, UA Negative Negative [facility] Urobilinogen, <2.0 <2.0 [facility] Leukocyte Negative Negative [place] esterase, [facility] Epithelial 1 /HPF [place] cells, [facility] WBC, UA 1 0 - 4 /HPF [facility] RBC, UA <1 0 - 5 /HPF [facility] Bacteria, UA Few None seen [facility] Yeast, UA None seen [facility] Yeast with None seen [place] pseudohyphae, [facility] Hyaline casts, 1 /LPF [facility] Specimen Urine Performing Organization Address City/State/Zipcode Phone Number [facility] DEPARTMENT OF [address] [place] [address] PATHOLOGY [place] [address] HOSPITAL * Urine drugs of abuse screen (01/03/2019 1:55 PM CDT) Only the most recent of 2 results within the time period is included. Amphetamine Negative [place] screen, urine [facility] Barbiturate Negative [place] screen, urine [facility] Benzodiazepine Negative [place] screen, urine [facility] Cocaine screen, Negative [place] urine [facility] Methadone Negative [place] metabolite [facility] (EDDP), urine [facility] Opiates screen, Negative [place] urine [facility] Oxycodone Negative [place] screen, urine [facility] Phencyclidine Negative [place] screen, urine [facility] Tricyclic Negative [place] screen, urine [facility] Cannabinoid Negative [place] screen, urine Comment: [facility] Drug screen minimum HOSPITAL concentration of detectability Amphetamines 1000 ng/mL Barbiturates 200 ng/mL Benzodiazepines 300 ng/mL Cocaine 300 ng/mL Methadone 300 ng/mL Opiates 300 ng/mL Oxycodone 300 ng/mL Phencyclidine 25 ng/mL Cannabinoids 50 ng/mL Tricyclics 1000 ng/mL Results are from screening tests and should only be used for medical evaluation. Drug testing for legal purposes requires definitive (or confirmatory) testing methods, which are available upon request. Contact the laboratory if definitive testing is required. Specimen Urine Performing Organization Address City/State/Zipcode Phone Number [facility] DEPARTMENT OF [address] [place] [address] PATHOLOGY AND GENOMIC MEDICINE [address] * Urine culture (01/03/2019 1:55 PM CDT) Only the most recent of 3 results within the time period is included. Urine culture SEE COMMENTComment: [place] Bacteriuria screen negative. [facility] Specimen Performing Organization Address City/State/Zipcode Phone Number [facility] [place] [address] PATHOLOGY AND GENOMIC MEDICINE [address] * Manual differential (01/01/2019 6:45 AM CDT) Only the most recent of 2 results within the time period is included. Manual PERFORMED [facility] Neutrophils 59.0 39.0 - 69.0 % [facility] Lymphocytes 29.0 25.0 - 45.0 % [facility] Monocytes 10.0 0.0 - 10.0 % [facility] Eosinophils 2.0 0.0 - 5.0 % [facility] Basophils 0.0 0.0 - 1.0 % [facility] Metamyelocytes 0 % [facility] Promyelocytes 0 % [facility] Platelet slide [place] adequate [facility] Anisocytosis Moderate [facility] Ovalocytes Moderate [facility] Specimen Performing Organization Address City/[facility] Phone Number [facility] DEPARTMENT OF [address] [place] [address] PATHOLOGY AND GENOMIC MEDICINE [address] * Basic metabolic panel (01/01/2019 4:00 AM CDT) Only the most recent of 24 results within the time period is included. Sodium 140 135 - 148 mEq/L [facility] Potassium 4.9 3.5 - 5.0 mEq/L [facility] Chloride 99 98 - 112 mEq/L [facility] CO2 34 (H) 24 - 31 mEq/L [facility] Anion gap 7@ANIO 7 - 15 mEq/L [facility] BUN 23 8 - 23 mg/dL [facility] Creatinine 0.86 0.50 - 0.90 mg/dL [facility] Glucose 85 65 - 99 mg/dL [facility] Calcium 8.9 8.8 - 10.2 mg/dL [facility] Specimen Plasma specimen Performing Organization Address City/[facility]/Zipcode Phone Number [facility] [place] [address] PATHOLOGY AND GENOMIC MEDICINE [address] * Us duplex venous lower extremity (12/31/2018 10:18 PM CDT) Only the most recent of 4 results within the time period is included. Specimen Narrative Performed At [facility] Lower Extremity Venous Report [address] [place] [address] 9, [place] [address] Pat.Name:ZORAIDA HSU Pat.ID:[id number] .Date: 12/31/2018Refer.MD:ETTA PATEL MD Exam Time: 8:36:00 PMStudy Type:LE Venous Height:67inDOBAge:1939,78Y Sex: FEMALESonogrphr: Shon Otoole, RVT Pat. Stat.:Inpatient Room:[address] TapeVol: , CPT - 4: 74664 Echo Event ID:[id number] Order ID:[id number] Reason for Study:Bilateral leg swelling. History of DVT, CAD, SOB, HTN, aortic valve disorder, acute on chronic CHF. Procedures:Colorflow, Grayscale/2D, Pulsed wave Doppler Race:C SUMMARY: DUPLEX SCAN OBSERVATIONS Deep VeinsSuperficial Veins RightLeft RightLeft EIV GSV (prox) NormalNormal CFV Normal Normal (above knee) Femoral Normal Normal GSV (dist) Not Visualized Not Visualized Profunda Normal Normal (below knee) Popliteal Normal Normal PT (prox) Normal Chronic obstructedSSV Normal Normal PT (dist) Normal Normal Peroneal Not Visualized Normal Gastroc Normal Normal RIGHT: There is normal compressibility with no evidence of echogenic material noted within the lumen of the visualized veins.Colorflow and Doppler signals are normal. LEFT: One of paired proximal posterior tibial veins is non-compressible with bright echogenic material within the lumen. Colorflow and Doppler signals are absent. All other remaining veins are patent. PRELIMINARY FINDINGS 1. 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 Result given to AMADO Gibson at 21:20 PM on 12/31/2018. PHYSICIAN INTERPRETATION Venous examination of the both lower extremities demonstrated no evidence of acutevenous thrombosis in the visualized veins. 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 Signed 12/31/2018 11:01 PM Blake Pires MD, RPVI Procedure Note Interface, Radiology Results In - 12/31/2018 11:01 PM CDT [facility] Lower Extremity Venous Report [address] [address] Pat.Name: ZORAIDA HSU Pat.ID: [id number] .Date: 12/31/2018 Refer.MD: ETTA PATEL MD Exam Time: 8:36:00 PM Study Type:LE Venous Height: 67in Age: 11 1940,78Y Sex: FEMALE Sonogrphr: Menendez Vi, RVT Pat. Stat.:Inpatient Room: [address] Tape Vol: , CPT - 4: 90050 Echo Event ID:[id number] Order ID: [id number] Reason for Study:Bilateral leg swelling. History of DVT, CAD, SOB, HTN, aortic valve disorder, acute on chronic CHF. Procedures:Colorflow, Grayscale/2D, Pulsed wave Doppler Race: C SUMMARY: DUPLEX SCAN OBSERVATIONS Deep Veins Superficial Veins Right Left Right Left EIV GSV (prox) Normal Normal CFV Normal Normal (above knee) Femoral Normal Normal GSV (dist) Not Visualized Not Visualized Profunda Normal Normal (below knee) Popliteal Normal Normal PT (prox) Normal Chronic obstructed SSV Normal Normal PT (dist) Normal Normal Peroneal Not Visualized Normal Gastroc Normal Normal RIGHT: There is normal compressibility with no evidence of echogenic material noted within the lumen of the visualized veins.Colorflow and Doppler signals are normal. LEFT: One of paired proximal posterior tibial veins is non-compressible with bright echogenic material within the lumen. Colorflow and Doppler signals are absent. All other remaining veins are patent. PRELIMINARY FINDINGS 1. 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 Result given to AMADO Gibson at 21:20 PM on 12/31/2018. PHYSICIAN INTERPRETATION Venous examination of the both lower extremities demonstrated no evidence of acute venous thrombosis in the visualized veins. 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 Signed 12/31/2018 11:01 PM Blake Pires MD, RPVI Performing Organization Address City/State/Zipcode Phone Number [facility] [address] [place] [address] * Respiratory pathogen panel (12/31/2018 3:59 PM CDT) Only the most recent of 3 results within the time period is included. [facility]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 DISREGARD PREVIOUS RESULT Corrected result; previously reported as <2.8 on 10/30/2018 at 04:58 by I/AUT Specimen Plasma specimen Performing Organization Address [facility] Phone Number [facility] DEPARTMENT [address] [place] [address] PATHOLOGY AND GENOMIC MEDICINE [facility] [address] [place], [place] [id number] HOSPITAL * XR Picc Chest Portable (10/29/2018 12:04 PM CDT) Only the most recent of 2 results within the time period is included. Specimen Narrative Performed At EXAMINATION:XR PICC CHEST PORTABLE [facility] CLINICAL HISTORY:R20.2 Paresthesia of skin, antibiotics COMPARISON:Most recent CXR at [facility] October 16, 2018 IMPRESSION: Film is centered low and the right apex is not in the radiographic field.No PICC line is identified in the chest.There is cardiomegaly with mediastinal widening.Pulmonary vessels are T upper range of normal.Lung [place] are clear except for some minimal basilar atelectasis bilaterally. [facility]-[id number] Procedure Note Hm Interface, Radiology Results Incoming - 10/29/2018 12:11 PM CDT EXAMINATION: XR PICC CHEST PORTABLE CLINICAL HISTORY: R20.2 Paresthesia of skin, antibiotics COMPARISON: Most recent CXR at [facility] October 16, 2018 IMPRESSION: Film is centered low and the right apex is not in the radiographic field. No PICC line is identified in the chest. There is cardiomegaly with mediastinal widening. Pulmonary vessels are T upper range of normal. Lung clay[place] are clear except for some minimal basilar atelectasis bilaterally. [facility]-[id number] Performing Organization Address City/State/[facility] Phone Number [facility] [address] [place] [address] * PICC insertion (10/29/2018 11:26 AM CDT) Narrative Performed At Carlos Gutierrez RN 10/29/2018 11:34 AM PICC insertion Date/Time: 10/29/2018 11:26 AM Performed by: Shashi Thompson Authorized by: Kassi Michel MD Consent: Consent obtained:Verbal and written Consent given by:Patient Risks discussed: arterial puncture, incorrect placement, infection, bleeding, nerve damage, superficial thrombus and deep vein thrombus Alternatives discussed:Delayed treatment and alternative treatment [place] protocol: Procedure explained and questions answered to patient or proxy's satisfaction: yes Relevant documents present and verified: yes Test results available and properly labeled: yes Imaging studies available: yes Required blood products, implants, devices, and special equipment available: yes Site/side marked: yes Immediately prior to procedure, a time out was called: yes Patient identity confirmed:Arm band, verbally with patient and hospital-assigned identification number Pre-procedure details: Hand hygiene: Hand hygiene performed prior to insertion Sterile barrier technique: All elements of maximal sterile technique followed Skin preparation:ChloraPrep Skin preparation agent: Skin preparation agent completely dried prior to procedure Anesthesia (see MAR for exact dosages): Anesthesia method:Local infiltration Local anesthetic:Lidocaine 1% w/o epi Route of administration:Subcutaneous PICC Line Placement Details (Will create an LDA): Patient position:Flat Vessel Size (mm):4 Indication:Known shelter IV therapy Location:Right cephalic Device Type:Non-valved Catheter size:5 Fr PICC Characteristics: Catheter Brand:BioFlo PICC Internal Catheter Length (cm):36 Total Catheter Length (cm):36 Catheter Lot Number:[id number] Catheter Expiration Date:06/28/2020 Procedure Details: Landmarks identified: yes Ultrasound guidance: [...] placed utlizing ultrasound-guided Modified Seldinger Technique: Yes Dressing/Securement:Dressing dry and intact, antimicrobial dressing dry and intact, catheter securement device and antimicrobial dressing applied Blood Loss Amount:Less than 20 mL Post-Procedure Details: Post-procedure:Dressing applied Tip placement confirmed by chest x-ray: Yes Patient tolerance of procedure:Tolerated well, no immediate complications * Sedimentation rate (10/29/2018 9:43 AM CDT) Only the most recent of 3 results within the time period is included. Sedimentation 71 (H) 0 - 20 mm/hr [facility] Specimen Blood Performing Organization Address [facility] [place] [place] Phone Number [facility] DEPARTMENT OF [address] [place] [address] PATHOLOGY AND GENOMIC MEDICINE [address] * C-reactive protein (10/29/2018 9:43 AM CDT) Only the most recent of 4 results within the time period is included. CRP 3.05 (H) 0.00 - 0.50 mg/dL [facility] Specimen Plasma specimen Performing Organization Address [facility] Phone Number [facility] DEPARTMENT OF [address] [place] [address] PATHOLOGY AND GENOMIC MEDICINE [address] * XR Elbow 2 Vw Left (10/29/2018 9:36 AM CDT) Only the most recent of 3 results within the time period is included. Specimen Narrative Performed At EXAMINATION:XR ELBOW 2 VW LEFT [facility] CLINICAL HISTORY:Elbow paininitial exam COMPARISON:October 13, 2018 IMPRESSION: There is a complex highly comminuted fracture of the distal right humerus fixated by 3 metallic plates and multiple screws.The appearance is generally similar to the preceding exam.No definite destructive lesions are seen. [facility]-[id number] Procedure Note Hm Interface, Radiology Results Incoming - 10/29/2018 9:47 AM CDT EXAMINATION: XR ELBOW 2 VW LEFT CLINICAL HISTORY: Elbow pain initial exam COMPARISON: October 13, 2018 IMPRESSION: There is a complex highly comminuted fracture of the distal right humerus fixated by 3 metallic plates and multiple screws. The appearance is generally similar to the preceding exam. No definite destructive lesions are seen. [facility]-[id number] Performing Organization Address City/[facility] Phone Number [facility] [address] [place] [address] * Thyroid stimulating hormone (10/29/2018 5:15 AM CDT) Only the most recent of 2 results within the time period is included. TSH 1.67 0.27 - 4.20 uIU/mL [facility] Specimen Plasma specimen Performing Organization Address [facility] [place] Phone Number [facility] [place] [address] PATHOLOGY AND GENOMIC MEDICINE [address] * T4, free (10/29/2018 5:15 AM CDT) Pathologist [facility] T4, free 1.3 0.9 - 1.7 ng/dL [facility] Specimen Plasma specimen Performing Organization Address [facility] [place] Phone Number [facility] [place] [place] [address] PATHOLOGY AND GENOMIC MEDICINE [address] * Alcohol level, blood (10/29/2018 5:15 AM CDT) Alcohol None Detected mg/dL [facility] Comment: [facility] None Detected Legal Intoxication in [place]80 mg/dL (0.08%) - Whole Blood Toxic Concentration 200 mg/dL (0.2%) Potentially Fatal3 50 - 500 mg/dL (0.35 - 0.5%) Alcohol percent None Detected % [facility] Specimen Plasma specimen Performing Organization Address City/[facility] Phone Number [facility] DEPARTMENT OF [address] [place] [address] PATHOLOGY AND GENOMIC MEDICINE [address] * Acetaminophen level (10/29/2018 5:15 AM CDT) Acetaminophen <5.0 (L) 10.0 - 30.0 ug/mL [facility] Comment: [facility] 10-30 ug/mL Possible Toxicity 150-200 ug/mL Probable Toxicity >200 ug/mL Specimen Plasma specimen Performing Organization Address City/[facility] Phone Number [facility] [place] [address] PATHOLOGY AND GENOMIC MEDICINE [address] * Salicylate level (10/29/2018 5:15 AM CDT) Salicylate <3.0 3.0 - 30.0 mg/dL [facility] Specimen Plasma specimen Performing Organization Address City/[facility] Phone Number [facility] [place] [place] [address] PATHOLOGY AND GENOMIC MEDICINE [address] * CBC hemogram (10/19/2018 4:29 AM CDT) Only the most recent of 2 results within the time period is included. WBC 4.90 4.50 - 11.00 k/uL [facility] RBC 3.14 (L) 4.20 - 5.50 m/uL [facility] HGB 8.0 (L) 12.0 - 16.0 g/dL [facility] HCT 27.9 (L) 37.0 - 47.0 % [facility] MCV 88.9 82.0 - 100.0 fL [facility] MCH 25.5 (L) 27.0 - 34.0 pg [facility] MCHC 28.7 (L) 31.0 - 37.0 g/dL [facility] RDW - SD 48.6 37.0 - 55.0 fL [facility] MPV 9.9 8.8 - 13.2 fL [facility] Platelet count 314 150 - 400 k/uL [facility] Nucleated RBC 0.00 /100 WBC [facility] Specimen Blood Performing Organization Address City/[facility] Phone Number [facility] [place] [address] PATHOLOGY AND [facility] MEDICINE [address] * Total iron binding capacity (10/17/2018 5:03 AM CDT) Iron level 15 (L) 37 - 145 ug/dL [facility] Iron binding 147 (L) 200 - 400 ug/dL [facility] % Saturation 10.2 (L) 15.0 - 38.0 % [facility] Specimen Plasma specimen Performing Organization Address City/[facility] Phone Number [facility] [place] [address] PATHOLOGY AND [facility] MEDICINE [address] * Reticulocyte count (10/17/2018 5:03 AM CDT) Pathologist [facility] Retic %, auto 1.2 0.5 - 2.1 % [facility] Retic absolute, 0.0344 0.0210 - 0.1155 m/uL [facility] Specimen Blood Performing Organization Address City/[facility] [place] [address] PATHOLOGY AND [facility] MEDICINE [address] * Ferritin level (10/17/2018 5:03 AM CDT) Ferritin level 72 13 - 150 ng/mL [facility] Specimen Plasma specimen Performing Organization Address City/[facility] Phone Number [facility] [place] [address] PATHOLOGY AND [facility] MEDICINE [address] * PICC insertion (10/16/2018 10:56 AM CDT) Narrative Performed At Angie Baum RN 10/16/2018 10:57 AM PICC insertion Date/Time: 10/16/2018 10:56 AM Performed by: Angie Baum RN Authorized by: Zuleima Palacio MD Consent: Consent obtained:Verbal Consent given by:Patient Risks discussed: arterial puncture, incorrect placement, nerve damage, bleeding, infection, deep vein thrombus and superficial thrombus Alternatives discussed:Alternative treatment, delayed treatment and no treatment Pre-procedure details: Hand hygiene: Hand hygiene performed prior to insertion Sterile barrier technique: All elements of maximal sterile technique followed Skin preparation:ChloraPrep Skin preparation agent: Skin preparation agent completely dried prior to procedure Anesthesia (see MAR for exact dosages): Anesthesia method:Local infiltration Local anesthetic:Lidocaine 1% w/o epi Route of administration:Subcutaneous PICC Line Placement Details (Will create an LDA): Patient position:Flat Vessel Size (mm):4 Indication:Known shelter IV therapy Location:Right brachial Device Type:Non-valved Catheter size:5 Fr PICC Characteristics: Catheter Brand:[employer] PICC External Catheter Length (cm):0 Internal Catheter Length (cm):40 Total Catheter Length (cm):40 Catheter Lot Number:[id number] Catheter Expiration Date:06/28/2020 Procedure Details: Landmarks identified: yes Ultrasound guidance: yes Sterile ultrasound techniques: Sterile gel and sterile probe covers were used Number of attempts:1 Number of PICC kits used during procedure:1 Purpose of procedure:PICC Placement Successful PICC Placement: Yes Patency/Placement:Flushes without difficulty, flushed with 10 mL normal saline, extension tubing placed, x-ray placement verified, positive blood return and injection cap placed PICC placed utlizing ultrasound-guided Modified Seldinger Technique: Yes Dressing/Securement:Catheter securement device and antimicrobial dressing applied Blood Loss Amount:Less than 20 mL Post-Procedure Details: Post-procedure:Dressing applied Tip placement confirmed by chest x-ray: Yes Patient tolerance of procedure:Tolerated well, no immediate complications * Vancomycin level, trough (10/16/2018 4:00 AM CDT) Vancomycin, 28.5 (HH) 10.0 - 20.0 ug/mL [facility] trough Comment: [facility] Therapeutic Ranges: HOSPITAL Peak 30.0 - 40.0 ug/mL Wnlzwk12.0 - 20.0 ug/mL Specimen Serum Performing Organization Address City/State/Zipcode Phone Number [facility] DEPARTMENT OF [address] [place] [address] PATHOLOGY AND GENOMIC MEDICINE [facility] [address] [place], [place] [phone] [facility] * AFB culture (10/14/2018 10:54 AM CDT) Only the most recent of 2 results within the time period is included. AFB culture No growth after 6 weeks of [facility] isolate incubation. [facility] Comment: HOSPITAL Specimen Information Specimen Source: Joint Fluid Specimen Site: Elbow Specimen Fluid - Elbow Performing Organization Address City/[facility]/Zipcode Phone Number [facility] DEPARTMENT OF [address] [place] [address] PATHOLOGY AND [facility] MEDICINE [facility] [address] [place] [address] HOSPITAL * AFB stain (10/14/2018 10:54 AM CDT) Only the most recent of 2 results within the time period is included. AFB stain No acid fast bacilli (AFB) [facility] seen. [facility] Comment: HOSPITAL Specimen Information Specimen Source: Joint Fluid Specimen Site: Elbow Specimen Joint fluid - Elbow Performing Organization Address [facility] [place] [place] Phone Number [facility] DEPARTMENT OF [address] [place] [address] PATHOLOGY AND [facility] MEDICINE [facility] [address] [place] [address] HOSPITAL * Joint fluid culture (10/14/2018 10:41 AM CDT) Joint fluid Staphylococcus aureus [facility] culture isolate Many [facility] , susceptibility to follow HOSPITAL This organism is Methicillin Resistant. (A) Comment: Specimen Information Specimen Source: Joint Fluid Specimen Site: Elbow Specimen Joint fluid - Elbow Antibiotic Method Susceptibility Organism Ampicillin KIM mcg/mL: Resistant Staphylococcus aureus Clindamycin KIM >2 mcg/mL: Resistant Staphylococcus aureus Cefazolin KIM mcg/mL: Resistant Staphylococcus aureus Erythromycin KIM >4 mcg/mL: Resistant Staphylococcus aureus Linezolid KIM 2 mcg/mL: Susceptible Staphylococcus aureus Minocycline KIM 8 mcg/mL: Resistant Staphylococcus aureus Oxacillin KIM >2 mcg/mL: Resistant Staphylococcus aureus Penicillin G KIM >1 mcg/mL: Resistant Staphylococcus aureus Rifampin KIM <=0.5 mcg/mL: Susceptible Staphylococcus aureus Trimethoprim/Sulfamethoxazole KIM <=0.5/9.5 mcg/mL: Susceptible Staphylococcus aureus Tetracycline KIM >8 mcg/mL: Resistant Staphylococcus aureus Vancomycin KIM 1 mcg/mL: Susceptible Staphylococcus aureus Performing Organization Address [facility] Phone Number [facility] DEPARTMENT OF [address] [place] [address] PATHOLOGY AND [facility] MEDICINE [facility] [address] [place] [address] HOSPITAL * Fungus smear (10/14/2018 10:41 AM CDT) Fungus smear No fungi observed. [facility] Comment: [facility] Specimen Information HOSPITAL Specimen Source: Joint Fluid Specimen Site: Elbow Specimen Joint fluid - Elbow Performing Organization Address City/[facility]/Zipcode Phone Number [facility] DEPARTMENT OF [address] [place] [address] PATHOLOGY AND [facility] [place] [address] HOSPITAL * Gram stain (10/14/2018 10:41 AM CDT) Only the most recent of 3 results within the time period is included. Gram stain Many WBC's [facility] isolate No organisms seen [facility] Comment: HOSPITAL Specimen Information Specimen Source: Joint Fluid Specimen Site: Elbow Specimen Joint fluid - Elbow Performing Organization Address [facility] Phone Number [facility] [place] [address] PATHOLOGY AND [facility] [place] [address] HOSPITAL * Fungus culture (10/14/2018 10:41 AM CDT) Fungus culture No growth after 4 weeks of [facility] isolate incubation. [facility] Comment: HOSPITAL Specimen Information Specimen Source: Joint Fluid Specimen Site: Elbow Specimen Fluid - Elbow Performing Organization Address [facility] [place] [place] Phone Number [facility] [place] [address] PATH[address] * Anaerobic culture (10/14/2018 10:41 AM CDT) Only the most recent of 2 results within the time period is included. Anaerobic No anaerobic organisms [facility] culture isolate isolated. [facility] Comment: HOSPITAL Specimen Information Specimen Source: Joint Fluid Specimen Site: Elbow Specimen Fluid - Elbow Performing Organization Address City/[facility]/Zipcode Phone Number [facility] DEPARTMENT OF [address] [place] [address] PATHOLOGY AND [facility] MEDICINE [place] [address] HOSPITAL * Type and screen (10/14/2018 8:39 AM CDT) Only the most recent of 4 results within the time period is included. ABO grouping O [facility] Rh type POS [facility] Antibody screen NEG [place] (gel) [facility] Specimen Performing Organization Address City/[facility]/Zipcode Phone Number [facility] DEPARTMENT OF [address] [place] [address] PATHOLOGY AND [facility] MEDICINE [address] * HCV qualitative by PCR (10/14/2018 4:00 AM CDT) [facility] HCV PCR result Not-Detected Not-Detected [facility] HCV RNA See link below for PDF Lab [place] qualitative ReportComment: Case Number: [facility] [id number] [facility] Specimen Serum Performing Organization Address City/State/Zipcode Phone Number [facility] DEPARTMENT OF [address] [place] [address] PATHOLOGY AND GENOMIC MEDICINE [address] * Hepatitis acute panel (10/14/2018 4:00 AM CDT) [facility] Hepatitis A IgM Non-reactive Non-reactive [facility] Hepatitis B Non-reactive Non-reactive [place] core IgM [facility] Hepatitis B Non-reactive Non-reactive [place] surface Ag [facility] Hepatitis C Ab Equivocal (A) Non-reactive [place] Comment: [facility] HCV antibody testing initially HOSPITAL Equivocal. Confirmation by HCV RNA PCR will be performed and reported separately when completed. Repeat HCV RNA PCR will not be performed if done within 30 days. Specimen Serum Performing Organization Address City/State/Zipcode Phone Number [facility] [place] [address] PATHOLOGY AND [facility] MEDICINE [address] * Immunofixation, serum (10/14/2018 4:00 AM CDT) [facility] Immunofixation, SEE COMMENTComment: See [place] serum electrophoresis report below. [facility] Specimen Serum Narrative Performed At anna added per pathologist [facility] DEPARTMENT OF PATHOLOGY AND GENOMIC MEDICINE Performing Organization Address City/State/Zipcode Phone Number [facility] DEPARTMENT OF [address] [place] [address] PATHOLOGY AND GENOMIC MEDICINE [address] * Serum electrophoresis (10/14/2018 4:00 AM CDT) [facility] Protein 6.3 6.3 - 8.3 g/dL [place] Comment: [facility] 4.6-7.0 g/dL 1 week 4.4-7.6 g/dL 7 months-1year 5.1-7.3 g/dL 1-2 years5.6-7 .5 g/dL >3 years6.0-8 .0 g/dL 18-150 6.3-8.3 g/dL SPE albumin 2.92 (L) 4.00 - 5.30 g/dL [facility] SPE alpha 1 0.25 0.10 - 0.25 g/dL [facility] SPE alpha 2 0.90 (H) 0.58 - 0.84 g/dL [facility] SPE beta 0.86 0.50 - 1.10 g/dL [facility] SPE gamma 1.38 (H) 0.60 - 1.30 g/dL [facility] SPE extended See Comment [place] interpretation Comment: [facility] Abnormal serum protein study HOSPITAL due to the presence of a band in the gamma region that immunofixes as monoclonal IgG [place]. This band is present at a concentration of 0.2 g/dL. Uninvolved gamma globulins are not decreased and there is an acute phase background noted. 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 SPE See CommentComment: Katie LAINEZ interpretation MD [place]; Rossi Shaw, PhD; [facility] Donovan Gallegos MD, PhD HOSPITAL Specimen Serum Narrative Performed At anna added per pathologist [facility] DEPARTMENT OF PATHOLOGY AND GENOMIC MEDICINE Performing Organization Address City/[facility] Phone Number [facility] DEPARTMENT OF [address] [place] [address] PATHOLOGY AND GENOMIC MEDICINE [address] * Lactic acid level, SEPSIS - Now and repeat 2x every 3 hours (10/14/2018 3:11 AM CDT) Only the most recent of 5 results within the time period is included. Lactic acid 1.1 0.5 - 2.2 mmol/L [facility] Specimen Blood Performing Organization Address City/State/Zipcode Phone Number [facility] [place] [address] PATHOLOGY AND GENOMIC MEDICINE [address] * CT Upper Extremity Wo Left (10/14/2018 1:38 AM CDT) Only the most recent of 2 results within the time period is included. Specimen Narrative Performed At Examination:CT UPPER EXTREMITY WO LEFT HM [facility] Clinical History: bone healing in setting of possible infection Comparison: None. Findings: CT scans are performed using radiation dose reduction techniques.Technical factors are evaluated and adjusted to ensure appropriate moderation of exposure.Automated dose management technology is applied to adjust radiation exposure while achieving a diagnostic quality image. CT imaging was performed with iterative reconstruction techniques and/or automated exposure control to reduce radiation dose. CT scan of the left elbow was performed without intravenous contrast. Postoperative changes of the left elbow is noted with plate and screw fixation through the medial epicondyle of the left distal humerus. There are 3 pins fixation through the humeral condyles. There is also plate and screw fixation through both medial and lateral epicondyles of the distal humerus. The amount of orthopedic hardware limits the study. The comminuted fractures are ununited although there are hypertrophic changes noted at the periphery. At the posterior aspect at the level of the humeral condyles there is some soft tissue fullness noted along with indistinctness of the bony cortex. This is best seen on series 8 images 125-129. There is diffuse subcutaneous fat stranding noted especially at the lateral aspect and posterior aspect. No definite discrete fluid collection is seen although this is limited. IMPRESSION: 1. Orthopedic pin, plate, and screw fixations through the left elbow through a comminuted fracture of the left proximal humerus. The fracture is currently ununited. The amount of orthopedic hardware limits evaluation of the study. There is some cortical indistinctness or cortical bone loss especially at the posterior aspect at the level of the humeral condyles but it is unsure if this represents postoperative change or infection. There is some soft tissue fullness in this region but again this can also represent postoperative change versus infection. MRI with and without contrast may be helpful for further evaluation. [facility]-[id number] Procedure Note Interface, Radiology Results Incoming - 10/14/2018 5:12 AM CDT Examination: CT UPPER EXTREMITY WO LEFT Clinical History: bone healing in setting of possible infection Comparison: None. Findings: CT scans are performed using radiation dose reduction techniques. Technical factors are evaluated and adjusted to ensure appropriate moderation of exposure. Automated dose management technology is applied to adjust radiation exposure while achieving a diagnostic quality image. CT imaging was performed with iterative reconstruction techniques and/or automated exposure control to reduce radiation dose. CT scan of the left elbow was performed without intravenous contrast. Postoperative changes of the left elbow is noted with plate and screw fixation through the medial epicondyle of the left distal humerus. There are 3 pins fixation through the humeral condyles. There is also plate and screw fixation through both medial and lateral epicondyles of the distal humerus. The amount of orthopedic hardware limits the study. The comminuted fractures are ununited although there are hypertrophic changes noted at the periphery. At the posterior aspect at the level of the humeral condyles there is some soft tissue fullness noted along with indistinctness of the bony cortex. This is best seen on series 8 images 125-129. There is diffuse subcutaneous fat stranding noted especially at the lateral aspect and posterior aspect. No definite discrete fluid collection is seen although this is limited. IMPRESSION: 1. Orthopedic pin, plate, and screw fixations through the left elbow through a comminuted fracture of the left proximal humerus. The fracture is currently ununited. The amount of orthopedic hardware limits evaluation of the study. There is some cortical indistinctness or cortical bone loss especially at the posterior aspect at the level of the humeral condyles but it is unsure if this represents postoperative change or infection. There is some soft tissue fullness in this region but again this can also represent postoperative change versus infection. MRI with and without contrast may be helpful for further evaluation. [facility]-[id number] Performing Organization Address City/State/Zipcode Phone Number [facility] [address] [place] [address] * Aerobic culture (10/13/2018 11:39 PM CDT) Only the most recent of 2 results within the time period is included. Aerobic culture Staphylococcus aureus LAINEZ isolate Occasional [facility] , susceptibility to follow HOSPITAL This organism is Methicillin Resistant. (A) Comment: Specimen Information Specimen Source: Pus Specimen Site: Arm Specimen Pus - Arm Antibiotic Method Susceptibility Organism Ampicillin KIM mcg/mL: Resistant Staphylococcus aureus Clindamycin KIM >2 mcg/mL: Resistant Staphylococcus aureus Cefazolin KIM mcg/mL: Resistant Staphylococcus aureus Erythromycin KIM >4 mcg/mL: Resistant Staphylococcus aureus Linezolid KIM 2 mcg/mL: Susceptible Staphylococcus aureus Minocycline KIM 8 mcg/mL: Resistant Staphylococcus aureus Oxacillin KIM >2 mcg/mL: Resistant Staphylococcus aureus Penicillin G KIM >1 mcg/mL: Resistant Staphylococcus aureus Rifampin KIM <=0.5 mcg/mL: Susceptible Staphylococcus aureus Trimethoprim/Sulfamethoxazole KIM <=0.5/9.5 mcg/mL: Susceptible Staphylococcus aureus Tetracycline KIM >8 mcg/mL: Resistant Staphylococcus aureus Vancomycin KIM 1 mcg/mL: Susceptible Staphylococcus aureus Performing Organization Address [facility] Centercode Phone Number [facility] [place] [address] PATHOLOGY AND GENOMIC MEDICINE [address] * Blood culture, aerobic & anaerobic (10/13/2018 9:55 PM CDT) Only the most recent of 2 results within the time period is included. Blood culture No growth after 5 days of [place] isolate incubation. [facility] Comment: HOSPITAL Specimen Information Specimen Source: Blood Specimen Site: Antecubital, right Specimen Blood - Antecubital, right Performing Organization Address [facility] [place] [place] [address] PATHOLOGY AND GENOMIC MEDICINE [address] * XR Elbow 3+ Vw Left (10/13/2018 9:32 PM CDT) Specimen Narrative Performed At EXAMINATION:XR ELBOW 3VW LEFT [facility] CLINICAL HISTORY:Fractureelbow, suspect osteo infected hardware COMPARISON:None. IMPRESSION: Extensive postoperative deformity of the distal humerus with multiple plates and screws. No obvious area of bone destruction although this examination is of very limited sensitivity. [id number] Procedure Note Interface, Radiology Results Incoming - 10/13/2018 9:37 PM CDT EXAMINATION: XR ELBOW 3 VW LEFT CLINICAL HISTORY: Fracture elbow, suspect osteo infected hardware COMPARISON: None. IMPRESSION: Extensive postoperative deformity of the distal humerus with multiple plates and screws. No obvious area of bone destruction although this examination is of very limited sensitivity. [id number] Performing Organization Address [facility] Centercode Phone Number [facility] [address] [place] [address] * Phosphorus level (09/30/2018 4:00 AM CDT) Only the most recent of 9 results within the time period is included. Phosphorus 4.2 2.4 - 4.5 mg/dL [facility] Specimen Plasma specimen Performing Organization Address City/[facility]/Zipcode Phone Number [facility] DEPARTMENT [address] [address] PATHOLOGY AND GENOMIC MEDICINE [place] [address] [id number] HOSPITAL * XR Wrist 3+ Vw Left (09/29/2018 1:33 PM CDT) Specimen Narrative Performed At EXAMINATION:XR WRIST 3VW LEFT [facility] CLINICAL HISTORY:traumapain COMPARISON:None. IMPRESSION: 1.There is no evidence of acute left wrist fracture or dislocation. [facility]-[id number] Procedure Note Interface, Radiology Results Incoming - 09/29/2018 3:00 PM CDT EXAMINATION: XR WRIST 3 VW LEFT CLINICAL HISTORY: trauma pain COMPARISON: None. IMPRESSION: 1. There is no evidence of acute left wrist fracture or dislocation. [facility]-[id number] Performing Organization Address [facility]/Zipcode Phone Number [facility] [address] [place] [address] * XR Shoulder 2+ Vw Left (09/29/2018 1:32 PM CDT) Only the most recent of 2 results within the time period is included. Specimen Narrative Performed At EXAMINATION:XR SHOULDER 2VW LEFT [facility] CLINICAL HISTORY:traumashoulder pain COMPARISON:05/05/2018 IMPRESSION: Bones are markedly demineralized. No acute fracture or subluxation is seen. Fixation plates and screws in the distal humerus partly seen. Please see separate report for humerus series. Decreased subacromial distance may reflect chronic rotator cuff tear. [facility]-[id number] Procedure Note Interface, Radiology Results Incoming - 09/29/2018 2:28 PM CDT EXAMINATION: XR SHOULDER 2 VW LEFT CLINICAL HISTORY: trauma shoulder pain COMPARISON: 05/05/2018 IMPRESSION: Bones are markedly demineralized. No acute fracture or subluxation is seen. Fixation plates and screws in the distal humerus partly seen. Please see separate report for humerus series. Decreased subacromial distance may reflect chronic rotator cuff tear. [facility]-[id number] Performing Organization Address [facility]/Zipcode Phone Number [facility] [address] [place] [address] * XR Forearm 2 Vw Left (09/29/2018 1:31 PM CDT) Specimen Narrative Performed At EXAMINATION:XR FOREARM 2 VW LEFT [facility] CLINICAL HISTORY:Fractureforearm COMPARISON:None. IMPRESSION: 1.Evaluation of the left forearm demonstrates no evidence for an acute fracture. There are chronic posttraumatic changes involving the left radial head. In addition, there is extensive hardware involving the distal left humerus relating to ORIF of a complex fracture. 2.Osseous structures are demineralized. [facility]-[id number] Procedure Note Interface, Radiology Results Incoming - 09/29/2018 3:01 PM CDT EXAMINATION: XR FOREARM 2 VW LEFT CLINICAL HISTORY: Fracture forearm COMPARISON: None. IMPRESSION: 1. Evaluation of the left forearm demonstrates no evidence for an acute fracture. There are chronic posttraumatic changes involving the left radial head. In addition, there is extensive hardware involving the distal left humerus relating to ORIF of a complex fracture. 2. Osseous structures are demineralized. [facility]-[id number] Performing Organization Address City/State/Zipcode Phone Number [facility] [address] [place] [address] * XR Knee 3 Vw Left (05/11/2018 9:09 PM [facility]OP[facility]IST[facility]) Specimen Narrative Performed At EXAMINATION:XR KNEE 3 VW LEFT [facility] CLINICAL HISTORY:femur fracture fixation COMPARISON:CT left lower extremity dated 05/05/2018 IMPRESSION: Osteopenia of the visualized osseous structures is again seen. Acute comminuted intra-articular fracture of the distal diaphysis of the left femur is again seen. Plate and screw construct is again seen of the distal diaphysis of the femur and proximal diaphysis of the tibia. Surgical changes related to fixation of the patella are again seen. Soft tissue swelling is seen of the left knee. Surgical elsy are seen of the soft tissues, new since 05/05/2018. Old fracture of proximal diaphysis of the fibula. [facility]-[id number] Procedure Note Interface, Radiology Results Incoming - 05/11/2018 9:21 PM AUTOPSY ASSISTANT EXAMINATION: XR KNEE 3 VW LEFT CLINICAL HISTORY: femur fracture fixation COMPARISON: CT left lower extremity dated 05/05/2018 IMPRESSION: Osteopenia of the visualized osseous structures is again seen. Acute comminuted intra-articular fracture of the distal diaphysis of the left femur is again seen. Plate and screw construct is again seen of the distal diaphysis of the femur and proximal diaphysis of the tibia. Surgical changes related to fixation of the patella are again seen. Soft tissue swelling is seen of the left knee. Surgical elsy are seen of the soft tissues, new since 05/05/2018. Old fracture of proximal diaphysis of the fibula. [facility]-[id number] Performing Organization Address [facility] Cent[facility]ode Phone Number [facility] [address] [place] [address] * Anti Xa, unfractionated (05/11/2018 7:02 PM AUTOPSY ASSISTANT) Only the most recent of 5 results within the time period is included. Anti Xa, 0.16 (L)Comment: Therapeutic 0.30 - 0.70 U/mL [place] unfractionated Range: 0.30 - 0.70 U/mL [facility] Specimen Blood Performing Organization Address [facility] Centercode Phone Number [facility] DEPARTMENT [address] [address] PATHOLOGY AND GENOMIC MEDICINE [address] * XR Knee 3 Vw Right (05/11/2018 10:29 AM AUTOPSY ASSISTANT) Specimen Narrative Performed At EXAMINATION:XR KNEE 3 VW RIGHT [facility] CLINICAL HISTORY:knee pain acute COMPARISON: Contralateral knee, 05/05/2018 IMPRESSION: 1.No acute fracture or subluxation. 2. 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 3. Diffuse osseous demineralization. Diffuse soft tissue swelling. I personally reviewed the images and the resident's findings and agree with the final report. [facility]-[id number] Procedure Note Interface, Radiology Results Incoming - 05/11/2018 10:44 AM AUTOPSY ASSISTANT EXAMINATION: XR KNEE 3 VW RIGHT CLINICAL HISTORY: knee pain acute COMPARISON: Contralateral knee, 05/05/2018 IMPRESSION: 1.No acute fracture or subluxation. 2. 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 3. Diffuse osseous demineralization. Diffuse soft tissue swelling. I personally reviewed the images and the resident's findings and agree with the final report. [facility]-[id number] Performing Organization Address City/[facility]/Zipcode Phone Number [facility] [address] [place] [address] * Hemoglobin (2018 8:02 AM AUTOPSY ASSISTANT) HGB 7.7 (L) 12.0 - 16.0 g/dL [facility] Specimen Blood Performing Organization Address City/[facility]/Zipcode Phone Number [facility] DEPARTMENT OF [address] [place] [address] PATHOLOGY AND [facility] MEDICINE [address] * Transfuse RBC (2018 6:20 AM AUTOPSY ASSISTANT) Only the most recent of 5 results within the time period is included. * Prepare RBC (2018 3:30 AM AUTOPSY ASSISTANT) Only the most recent of 3 results within the time period is included. Product name Apheresis Red Cell AS3 #1 LR [facility] Unit number [id number] [facility] Product code [id number] [facility] Dispense status Transfused [facility] Blood [id number] [place] expiration date [facility] Blood type code 5100 [facility] Blood type O POSITIVE [facility] Specimen Performing Organization Address City/[facility] [place] Phone Number [facility] DEPARTMENT OF [address] [place] [address] * Hepatic function panel (2018 2:12 AM AUTOPSY ASSISTANT) Only the most recent of 2 results within the time period is included. Albumin 1.8 (L) 3.5 - 5.0 g/dL [facility] Total bilirubin 0.6 0.0 - 1.2 mg/dL [facility] Bilirubin <0.2 0.0 - 0.3 mg/dL [facility] Alkaline 57 35 - 104 U/L [facility] Protein 5.2 (L) 6.3 - 8.3 g/dL [place] Comment: [facility] 4.6-7.0 g/dL 1 week 4.4-7.6 g/dL 7 months-1year 5.1-7.3 g/dL 1-2 years5.6-7 .5 g/dL >3 years6.0-8 .0 g/dL 18-150 6.3-8.3 g/dL ALT 8 5 - 50 U/L [facility] AST 18 10 - 35 U/L [facility] Specimen Plasma specimen Performing Organization Address City/[facility] [place] Phone Number [facility] [place] [address] PATHOLOGY AND [facility] MEDICINE [address] * Fibrinogen (05/09/2018 1:28 AM AUTOPSY ASSISTANT) Only the most recent of 2 results within the time period is included. Fibrinogen 628 (H) 200 - 450 mg/dL [facility] Specimen Blood Performing Organization Address City/[facility]/Zipcode Phone Number [facility] DEPARTMENT OF [address] [place] [address] PATHOLOGY AND GENOMIC MEDICINE [address] * LDH (05/09/2018 1:28 AM AUTOPSY ASSISTANT) LDH 170 87 - 225 U/L [facility] Specimen Plasma specimen Performing Organization Address City/[facility] Phone Number [facility] DEPARTMENT OF [address] [place] [address] PATHOLOGY AND GENOMIC MEDICINE [address] * Ionized calcium (05/09/2018 1:28 AM AUTOPSY ASSISTANT) pH 7.46 [facility] Ionized calcium 1.06 (L) 1.11 - 1.32 mmol/L [facility] Specimen Plasma specimen Performing Organization Address [facility] Centercode Phone Number [facility] DEPARTMENT OF [address] [place] [address] PATHOLOGY AND GENOMIC MEDICINE [address] * Pv duplex venous upper extremity (05/08/2018 2:00 PM AUTOPSY ASSISTANT) Specimen Narrative Performed At [facility] Vascular Ultrasound Laboratory Upper Extremity Venous Report [address] [place] [address] Pat.Name:ZORAIDA HSU Pat.ID:[id number] .Date: 05/08/2018Refer.MD:RAYMOND FLOREZ MD Exam Time: 1:08:00 PMStudy Type:UE Venous Height:67inWeight:212lb BSA: 2.07 m2 DOBAge:1940,77Y Sex: FEMALESonogrphr: Karma Lainez RVT Pat. Stat.:Inpatient Room:[id number] TapeVol: , CPT - 4: 79138 Echo Event ID:[id number] Order ID:[id number] Reason for Study:Arm swelling, post-op orthopedic surgery, suspected DVT. Procedures:Colorflow, Grayscale/2D, Pulsed wave Doppler Race:C SUMMARY: DUPLEX SCAN OBSERVATIONS Right Left IJNormal Catheter SubclavianNormal Normal AxillaryNormal Normal BrachialNormal Dressing BasilicNormal Dressing CephalicNormal Dressing RIGHT: There is normal compressibility and no evidence of echogenic material noted within the lumen of the visualized veins.Colorflow and Doppler signals are normal. LEFT: Limited visualization of the upper extremity veins due to full arm dressing post procedure following fall. The subclavian and axillary vein demonstrate normal compressibility and no evidence of echogenic material noted within the lumen.Colorflow and Doppler signals are normal. PRELIMINARY FINDINGS 1. No evidence of deep vein thrombosis in the visualized veins. Limited study due to left arm dressing post-procedure. Discussed limited visibility and preliminary report with AMADO Herrera @ 1:00 pm on 05/08/2018. PHYSICIAN INTERPRETATION Venous examination of the both upper extremities and neck demonstrated no evidence of venous thrombosis. Signed 05/08/2018 10:38 PM Blake Pires MD, RP Procedure Note Interface, Radiology Results In - 05/08/2018 10:38 PM [facility] Vascular Ultrasound Laboratory Upper Extremity Venous Report [id number] [address] Pat.Name: MARGO ZORAIDA R Pat.ID: [id number] .Date: 05/08/2018 Refer.MD: RAYMOND FLOREZ MD Exam Time: 1:08:00 PM Study Type:UE Venous Height: 67in Weight: 212lb BSA: 2.07 m2 Age: 11 1940,77Y Sex: FEMALE Sonogrphr: Karma Lainez RVT Pat. Stat.:Inpatient Room: WYNC-0486-53 Tape Vol: , CPT - 4: 58352 Echo Event ID:[id number] Order ID: [id number] Reason for Study:Arm swelling, post-op orthopedic surgery, suspected DVT. Procedures:Colorflow, Grayscale/2D, Pulsed wave Doppler Race: C SUMMARY: DUPLEX SCAN OBSERVATIONS Right Left IJ Normal Catheter Subclavian Normal Normal Axillary Normal Normal Brachial Normal Dressing Basilic Normal Dressing Cephalic Normal Dressing RIGHT: There is normal compressibility and no evidence of echogenic material noted within the lumen of the visualized veins. Colorflow and Doppler signals are normal. LEFT: Limited visualization of the upper extremity veins due to full arm dressing post procedure following fall. The subclavian and axillary vein demonstrate normal compressibility and no evidence of echogenic material noted within the lumen. Colorflow and Doppler signals are normal. PRELIMINARY FINDINGS 1. No evidence of deep vein thrombosis in the visualized veins. Limited study due to left arm dressing post-procedure. Discussed limited visibility and preliminary report with AMADO Herrera @ 1:00 pm on 05/08/2018. PHYSICIAN INTERPRETATION Venous examination of the both upper extremities and neck demonstrated no evidence of venous thrombosis. Signed 05/08/2018 10:38 PM Blake Pires MD, RPVI Performing Organization Address City/[facility]/Zipcode Phone Number [facility] [address] [place] [address] * Ionized calcium, arterial (05/08/2018 1:45 AM AUTOPSY ASSISTANT) Only the most recent of 4 results within the time period is included. Ionized 1.00 (L) 1.11 - 1.32 mmol/L [facility] DEPARTMENT calcium, OF PATHOLOGY arterial AND GENOMIC MEDICINE Specimen Blood Performing Organization Address [facility]/Zipcode Phone Number [facility] DEPARTMENT OF [address] [place] [address] PATHOLOGY AND GENOMIC MEDICINE * Arterial blood gas (05/08/2018 1:45 AM AUTOPSY ASSISTANT) Only the most recent of 4 results within the time period is included. pH, arterial 7.44 7.35 - 7.45 [facility] DEPARTMENT OF PATHOLOGY AND GENOMIC MEDICINE pCO2, arterial 39 35 - 45 mmHg [facility] DEPARTMENT OF PATHOLOGY AND GENOMIC MEDICINE pO2, arterial 166 (H) 80 - 90 mmHg [facility] DEPARTMENT OF PATHOLOGY AND GENOMIC MEDICINE Bicarbonate, 26.0 21.0 - 28.0 mmol/L [facility] DEPARTMENT arterial OF PATHOLOGY AND GENOMIC MEDICINE Base excess, 2 -2 - 2 mEq/L [facility] DEPARTMENT arterial OF PATHOLOGY AND GENOMIC MEDICINE O2 saturation, 100 95 - 100 % [facility] DEPARTMENT arterial OF PATHOLOGY AND GENOMIC MEDICINE Specimen Blood Performing Organization Address City/State/Zipcode Phone Number [facility] DEPARTMENT OF [address] [address] PATHOLOGY AND GENOMIC MEDICINE * Echocardiogram complete w contrast and 3D if needed (05/07/2018 11:45 PM AUTOPSY ASSISTANT) Specimen Narrative Performed At [facility] Echocardiography Report [id number] [facility] [address], [place] [address] Pat.Name:ZORAIDA HSU Pat.ID:[id number] .Date: 05/07/2018 Refer.MD:RAYMOND FLOREZ MD Exam Time: 11:25:00 PM Study Type:Routine Echo Height:67inWeight:212lb BSA: 2.07 m2 DOBAge:1940,77Y Sex: FEMALEBP:137/86 HR:82 bpmSonogrphr: Gloria Emmanuel RDCS, RVT Pat. Stat.:Inpatient Room:[place] [address] Study Status:Final Echo Event ID:[id number] Order ID:[id number] Reason for Study:Hypotension orhemodynamic instability - Uncertain or suspected cardiac etiology; hypotensive intraop, suspected PE. History / Clinical:Hypertension, Aortic Aneurysm, Congestive Heart Failure, Coronary Artery Disease, Shortness of Breath, Valvular Heart Disease; Aortic Insufficiency Procedures:2D Echo, Colorflow Doppler, Portable, Stat, Intravenous Definity Contrast Race:C SUMMARY: V atul poor endocardial resolution.LVEF is grossly normal.Regional wall motion cannot be assessed. Ascending aorta is moderately enlarged (as previously reported). FINDINGS: LV: LV size is normal. LV EF is normal. Unable to assess regionalwall motion. Estimated EF is 60-64%. RV: RV size is normal. RV systolic function is grossly normal. LA: LA volume is difficult to assess but appears normal. RA: RA size is normal. AO: Ascending aorta diameter is moderately enlarged (5.0 cm diameter). JEREMY: No pericardial effusion. AV: Aortic valve not well seen. Mild to moderate aortic regurgitation. MV: No structural MV abnormalities noted. PV: Pulmonic valve not well seen. TV: Tricuspid valve not well seen. Riojas: Diastolic dysfunction Grade I (Mild): Impaired relaxation withnormal LV filling pressures. Other:Unable to assess PA systolic pressure despite use of contrast. MEASUREMENTS: 2D Ascending Aorta Asce Dim 5 cm Signed 05/08/2018 03:58 PM Addison Jaffe M.D. Procedure Note Interface, Radiology Results In - 05/08/2018 3:59 PM AUTOPSY ASSISTANT Echocardiography Report [address] [place] [address] Pat.Name: ZORAIDA HSU [facility].ID: [id number] .Date: 05/07/2018 Refer.MD: RAYMOND FLOREZ MD Exam Time: 11:25:00 PM Study Type:Routine Echo Height: 67in Weight: 212lb BSA: 2.07 m2 Age: 11 1940,77Y Sex: FEMALE BP: 137/86 HR: 82 bpm Sonogrphr: Gloria Emmanuel RDCS, RVT Pat. Stat.:Inpatient Room: [place] [address] Study Status:Final Echo Event ID:[id number] Order ID: [id number] Reason for Study:Hypotension or hemodynamic instability - Uncertain or suspected cardiac etiology; hypotensive intraop, suspected PE. History / Clinical:Hypertension, Aortic Aneurysm, Congestive Heart Failure, Coronary Artery Disease, Shortness of Breath, Valvular Heart Disease; Aortic Insufficiency Procedures:2D Echo, Colorflow Doppler, Portable, Stat, Intravenous Definity Contrast Race: C SUMMARY: Deotne pollard poor endocardial resolution. LVEF is grossly normal. Regional wall motion cannot be assessed. Ascending aorta is moderately enlarged (as previously reported). FINDINGS: LV: LV size is normal. LV EF is normal. Unable to assess regional wall motion. Estimated EF is 60-64%. RV: RV size is normal. RV systolic function is grossly normal. LA: LA volume is difficult to assess but appears normal. RA: RA size is normal. AO: Ascending aorta diameter is moderately enlarged (5.0 cm diameter). JEREMY: No pericardial effusion. AV: Aortic valve not well seen. Mild to moderate aortic regurgitation. MV: No structural MV abnormalities noted. PV: Pulmonic valve not well seen. TV: Tricuspid valve not well seen. Riojas: Diastolic dysfunction Grade I (Mild): Impaired relaxation with normal LV filling pressures. Other: Unable to assess PA systolic pressure despite use of contrast. MEASUREMENTS: 2D Ascending Aorta Asce Dim 5 cm Signed 05/08/2018 03:58 PM Addison Jaffe M.D. Performing Organization Address City/State/Zipcode Phone Number [facility] [address] [place] [address] * CT Angiogram Pe Chest (05/07/2018 8:46 PM AUTOPSY ASSISTANT) Specimen Narrative Performed At [facility] CLINICAL HISTORY: Chest painPE suspectedhigh prob TECHNIQUE: CT angiographic images of the chest were obtained during intravenous administration of iodinated contrast. Computerized reformatted images and 3-D MIP images were also obtained and archived (CT pulmonary embolus protocol). COMPARISON: None. IMPRESSION: There is no evidence of pulmonary embolism There is dilatation of the main pulmonary artery measuring 4.2 cm compatible pulmonary hypertension Volume loss with air bronchograms in the bilateral lower lobes right greater than left could be secondary to atelectasis or pneumonia. There is a small right-sided pleural effusion Small to moderate hiatal hernia Diffuse calcified atherosclerotic vascular disease throughout the arterial structures. Degenerative changes are present throughout the bony structures without evidence of a suspicious focal lesion. Mild aneurysmal dilatation of the ascending aorta measuring 4.3 cm. Mid arch 3.2 cm [facility]-[id number] Procedure Note Interface, Radiology Results [facility] - 05/07/2018 8:52 PM AUTOPSY ASSISTANT EXAMINATION: CT ANGIOGRAM PE CHEST CLINICAL HISTORY: Chest pain PE suspected high prob TECHNIQUE: CT angiographic images of the chest were obtained during intravenous administration of iodinated contrast. Computerized reformatted images and 3-D MIP images were also obtained and archived (CT pulmonary embolus protocol). COMPARISON: None. IMPRESSION: There is no evidence of pulmonary embolism There is dilatation of the main pulmonary artery measuring 4.2 cm compatible pulmonary hypertension Volume loss with air bronchograms in the bilateral lower lobes right greater than left could be secondary to atelectasis or pneumonia. There is a small right-sided pleural effusion Small to moderate hiatal hernia Diffuse calcified atherosclerotic vascular disease throughout the arterial structures. Degenerative changes are present throughout the bony structures without evidence of a suspicious focal lesion. Mild aneurysmal dilatation of the ascending aorta measuring 4.3 cm. Mid arch 3.2 cm [facility]-[id number] Performing Organization Address City/State/Zipcode Phone Number [facility] [address] [place] [address] * XR Abdomen 1 Vw Portable (05/07/2018 6:45 PM AUTOPSY ASSISTANT) Specimen Narrative Performed At EXAMINATION:XR ABDOMEN 1 VW PORTABLE [facility] CLINICAL HISTORY:NGT insertion COMPARISON:None. IMPRESSION: Single frontal view reveals the presence of an enteric tube overlying the gastric body. Nonspecific bowel gas pattern is present. Remainder of the examination is unchanged. [id number] Procedure Note Interface, Radiology Results Incoming - 05/07/2018 6:55 PM AUTOPSY ASSISTANT EXAMINATION: XR ABDOMEN 1 VW PORTABLE CLINICAL HISTORY: NGT insertion COMPARISON: None. IMPRESSION: Single frontal view reveals the presence of an enteric tube overlying the gastric body. Nonspecific bowel gas pattern is present. Remainder of the examination is unchanged. [id number] Performing Organization Address [facility] Phone Number [facility] [address] [place] [address] * Transfuse fresh frozen plasma unmatched (05/07/2018 6:07 PM AUTOPSY ASSISTANT) * OR FL > I Hour (05/07/2018 5:30 PM AUTOPSY ASSISTANT) Specimen Narrative Performed At EXAMINATION:OR FL 1 HOUR [facility] C-arm fluoroscopy was requested in OR. [facility]PC OR 19 RM: 2 PROCEDURE: LEFT HUMERUS ORIF AND LEFT DISTAL FEMUR ORIF START TIME: 1155 END TIME:1730 FLUORO TIME: 2MIN 32SEC DOSE: 12.46 mGy TECH(S): MC IMPRESSION: Separate operative report will be issued by the physician performing the procedure. [id number] Procedure Note Interface, Radiology Results Incoming - 05/07/2018 9:34 PM AUTOPSY ASSISTANT EXAMINATION: OR FL 1 HOUR C-arm fluoroscopy was requested in OR. OPC OR 19 RM: 2 PROCEDURE: LEFT HUMERUS ORIF AND LEFT DISTAL FEMUR ORIF START TIME: 1155 END TIME: 1730 FLUORO TIME: 2MIN 32SEC DOSE: 12.46 mGy TECH(S): MC IMPRESSION: Separate operative report will be issued by the physician performing the procedure. [id number] Performing Organization Address [facility] Phone Number [facility] [address] [place] [address] * Sodium level, syringe (05/07/2018 5:01 PM AUTOPSY ASSISTANT) Only the most recent of 2 results within the time period is included. Sodium, syringe 138 135 - 148 mEq/L [facility] DEPARTMENT OF PATHOLOGY AND GENOMIC MEDICINE Specimen Blood Performing Organization Address City/[facility]/Zipcode Phone Number [facility] DEPARTMENT OF [address] [place] [address] PATHOLOGY AND GENOMIC MEDICINE * Potassium, syringe (05/07/2018 5:01 PM AUTOPSY ASSISTANT) Only the most recent of 2 results within the time period is included. Pathologist [facility] Potassium, 3.9 3.5 - 5.0 mEq/L [facility] DEPARTMENT syringe OF PATHOLOGY AND GENOMIC MEDICINE Specimen Blood Performing Organization Address City/[facility] [place] [address] PATHOLOGY AND GENOMIC MEDICINE * Hemoglobin, syringe (05/07/2018 5:01 PM AUTOPSY ASSISTANT) Only the most recent of 2 results within the time period is included. [facility] Hemoglobin, 10.5 (L) 12.0 - 16.0 g/dL [facility] DEPARTMENT syringe OF PATHOLOGY AND GENOMIC MEDICINE Specimen Blood Performing Organization Address [facility] Cent[facility] Phone Number [facility] [place] [address] PATHOLOGY AND [facility] MEDICINE * Glucose level, syringe (05/07/2018 5:01 PM AUTOPSY ASSISTANT) Only the most recent of 2 results within the time period is included. [facility] Glucose, 200 (H) 65 - 99 mg/dL [facility] DEPARTMENT syringe OF PATHOLOGY AND [facility] MEDICINE Specimen Blood Performing Organization Address [facility] [place] Phone Number [facility] [place] [address] PATHOLOGY AND [facility] MEDICINE * ECG Pre/Post Op (05/06/2018 12:10 PM AUTOPSY ASSISTANT) Only the most recent of 2 results within the time period is included. Pathologist [facility] Ventricular 88 [facility] MUSE rate Atrial rate 88 [facility] MUSE [place] interval 190 [facility] QRSD interval 86 [facility] QT interval 362 [facility] MUSE QTC interval 438 [facility] M[facility] P axis 1 71 [facility] QRS axis 1 15 [facility] T wave axis 58 [facility] MUSE EKG impression Normal sinus [facility] MUSE rhythm-Nonspecific T wave abnormality-Abnormal ECG-In automated comparison with ECG of 06-MAY-2018 08:48,-premature atrial complexes are no longer present- Specimen Performing Organization Address [facility] [place] [address] * Prepare fresh frozen plasma (05/06/2018 4:30 AM AUTOPSY ASSISTANT) [facility] Product name Thawed Plasma [facility] Unit number [id number] [facility] Product code [id number] [facility] Dispense status Transfused [facility] Blood [id number] [place] expiration date [facility] Blood type code 6200 [facility] Blood type A POSITIVE [facility] Specimen Performing Organization Address City/State/Zipcode Phone Number [facility] DEPARTMENT OF [address] [place] [address] PATHOLOGY AND GENOMIC MEDICINE [facility] [address] [place] [address] HOSPITAL * CT Lower Extremity Wo Contrast Left (05/05/2018 10:55 PM AUTOPSY ASSISTANT) Specimen Narrative Performed At CT LOWER EXTREMITY WO CONTRAST LEFT [facility] CLINICAL INDICATION:Fracturefemur, entire femur to mid tibia TECHNIQUE:Multidetector CT of the left femur was performed without intravenous iodinated contrast with multiplanar reconstructions. CT imaging was performed with iterative reconstruction technique and/or automated exposure control to reduce radiation dose. COMPARISON:Radiographs performed on 05/05/2018. FINDINGS: There is redemonstrated plate and screw fixation of the left femur with placement of cerclage wires. There are also surgical changes related to internal fixation of the patella and proximal tibia. There is no perihardware lucency or hardware fracture to suggest hardware complication. There is an acute, comminuted, and mildly displaced fracture of the distal femoral metaphysis just distal to the anterior plate. There does appear to be intra-articular extension of this fracture to the knee joint. No other acute fracture is identified. The bones are demineralized. There is severe fatty atrophy of the left lower extremity musculature. There is mild soft tissue edema at the anterior aspect of the knee and proximal lower leg. There is no organized soft tissue fluid collection or soft tissue gas. IMPRESSION: 1. Acute, comminuted, and mildly displaced fracture of the distal femoral metaphysis. 2. No other acute fracture is identified. 3. No evidence of hardware complication. [facility]-[id number] Procedure Note Interface, Radiology Results Incoming - 05/06/2018 12:[address] LOWER EXTREMITY WO CONTRAST LEFT CLINICAL INDICATION: Fracture femur, entire femur to mid tibia TECHNIQUE: Multidetector CT of the left femur was performed without intravenous iodinated contrast with multiplanar reconstructions. CT imaging was performed with iterative reconstruction technique and/or automated exposure control to reduce radiation dose. COMPARISON: Radiographs performed on 05/05/2018. FINDINGS: There is redemonstrated plate and screw fixation of the left femur with placement of cerclage wires. There are also surgical changes related to internal fixation of the patella and proximal tibia. There is no perihardware lucency or hardware fracture to suggest hardware complication. There is an acute, comminuted, and mildly displaced fracture of the distal femoral metaphysis just distal to the anterior plate. There does appear to be intra-articular extension of this fracture to the knee joint. No other acute fracture is identified. The bones are demineralized. There is severe fatty atrophy of the left lower extremity musculature. There is mild soft tissue edema at the anterior aspect of the knee and proximal lower leg. There is no organized soft tissue fluid collection or soft tissue gas. IMPRESSION: 1. Acute, comminuted, and mildly displaced fracture of the distal femoral metaphysis. 2. No other acute fracture is identified. 3. No evidence of hardware complication. [facility]-[id number] Performing Organization Address [facility] Phone Number [facility] [address] [place] [address] * XR Pelvis 1 Or 2 Vw (05/05/2018 10:15 PM AUTOPSY ASSISTANT) Specimen Narrative Performed At EXAMINATION:XR PELVIS 1 OR 2 VW [facility] CLINICAL HISTORY:Hip painchronicinitial exam TECHNIQUE: 2 views of the pelvis COMPARISON:08/14/2015 IMPRESSION: Bones are demineralized. Postop change in the left femur. No acute fracture identified. [facility]-[id number] Procedure Note Interface, Radiology Results Incoming - 05/05/2018 10:27 PM AUTOPSY ASSISTANT EXAMINATION: XR PELVIS 1 OR 2 VW CLINICAL HISTORY: Hip pain chronic initial exam TECHNIQUE: 2 views of the pelvis COMPARISON: 08/14/2015 IMPRESSION: Bones are demineralized. Postop change in the left femur. No acute fracture identified. [facility]-[id number] Performing Organization Address [facility] Phone Number [facility] [address] [place] [address] * XR Knee 1 Or 2 Vw Left (05/05/2018 10:15 PM AUTOPSY ASSISTANT) Specimen Narrative Performed At EXAMINATION:XR KNEE 1 OR 2 VW LEFT [facility] CLINICAL HISTORY:Knee paininitial exam COMPARISON:None available at this time. IMPRESSION: There is an acute fracture of the distal left femoral metadiaphysis. A compression plate is present along the lateral aspect of the femur. Just distal to the plate, best seen on the lateral projection, there is an impacted horizontal fracture line extending from the anterior aspect of the femur adjacent to the plate extending posterior to the posterior cortex where there is some buckling near the most inferior screw Postoperative changes in the proximal tibia and patella Marked joint space narrowing of the lateral compartment The bones are demineralized [facility]-[id number] Procedure Note Interface, Radiology Results Incoming - 05/05/2018 10:30 PM AUTOPSY ASSISTANT EXAMINATION: XR KNEE 1 OR 2 VW LEFT CLINICAL HISTORY: Knee pain initial exam COMPARISON: None available at this time. IMPRESSION: There is an acute fracture of the distal left femoral metadiaphysis. A compression plate is present along the lateral aspect of the femur. Just distal to the plate, best seen on the lateral projection, there is an impacted horizontal fracture line extending from the anterior aspect of the femur adjacent to the plate extending posterior to the posterior cortex where there is some buckling near the most inferior screw Postoperative changes in the proximal tibia and patella Marked joint space narrowing of the lateral compartment The bones are demineralized [facility]-[id number] Performing Organization Address City/State/[facility] Phone Number [facility] [address] [place] [address] * XR Hand 3+ Vw Right (05/05/2018 10:14 PM AUTOPSY ASSISTANT) Specimen Narrative Performed At EXAMINATION:XR HAND 3VW RIGHT [facility] CLINICAL H[facility]ORY:Fracturehand TECHNIQUE:3views of right handobtained. COMPARISON:None. 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 Bones are demineralized. Smoothly marginated ossific densities along the medial margin of the distal radius compatible with old trauma. This may be heterotopic ossification or detached osteophytes or old fracture fragment. No acute fracture identified. Peripheral IV in the dorsal aspect of the carpus. No acute fracture or dislocation identified. [facility]-[id number] Procedure Note Interface, Radiology Results Incoming - 05/05/2018 10:29 PM AUTOPSY ASSISTANT EXAMINATION: XR HAND 3 VW RIGHT CLINICAL HISTORY: Fracture hand TECHNIQUE: 3 views of right hand obtained. COMPARISON: None. 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 Bones are demineralized. Smoothly marginated ossific densities along the medial margin of the distal radius compatible with old trauma. This may be heterotopic ossification or detached osteophytes or old fracture fragment. No acute fracture identified. Peripheral IV in the dorsal aspect of the carpus. No acute fracture or dislocation identified. [facility]-[id number] Performing Organization Address City/State/Zipcode Phone Number [facility] [address] [place] [address] after 01/28/2018 Insurance Type Payer Benefit Subscriber ID Effective Phone Address Plan / Dates Group Medicare MEDICARE MEDICARE xxxxxxxxxxx 1998-P [place], PART A AND resent [place] B PPO BCBS BCBS OUT xxxxxxxxxxxxxxx 2016-P OF STATE x resent Zoraida Hsu Reconstruc Self 1940 [address] (Home) [place] [id number] Surgery Advance Directives Patient has advance care planning documents, and code status on file. For more i nformation, please contact: Migel Kilgore [address] [place] [address] Date Inactivated Comments Code Status Date Activated 05/14/2018 9:02 PM Full Code 05/07/2018 6:04 PM Code Status decision reached by: Patient
--- OUTSIDE RECORDS SUMMARY | 2019-01-29 17:21 | XMS REPORT ---
Author Author [facility] Address Unknown Phone Unavailable Care Team Providers Care Special Events Manager Name Role Phone Radha HARDIN Unavailable Unavailable Payers Payer Name Policy Type Policy Number Effective Date Expiration Date Problems This patient has no known problems. Allergies, Adverse Reactions, Alerts Allergy Name Allergy Type Status Severity Reaction(s) Onset Date Inactive Date Treating Clinician Comments No Known Allergies DA Active U 2018-12-27 00:00:00 No Known Allergies DA Active U 2018-09-20 00:00:00 No Known Allergies DA Active U 2018-07-05 00:00:00 No Known Allergies DA Active U 2018-06-24 00:00:00 No Known Allergies DA Active U 2018-03-22 00:00:00 BEER DA Active MO 2018-01-27 00:00:00 WINE DA Active MO 2018-01-27 00:00:00 Medications This patient has no known medications. Encounters Start Date/Time End Date/Time Encounter Type Admission Type Attending Clinicians Care Facility Care Department Encounter ID 2019-01-16 04:05:00 2019-01-16 04:05:00 Outpatient E [facility] [id number] 2019-01-13 17:15:00 2019-01-13 17:15:00 Emergency E [facility] 7501 Results Test Description Test Time Test Comments Text Results Atomic Results Result Comments BASIC METABOLIC PANEL 2018-12-28 05:36:00 SODIUM (test code=NA) 147 mmol/L 136-145 POTASSIUM (test code=K) 3.7 mmol/L 3.5-5.1 CHLORIDE (test code=CL) 112.0 mmol/L 98-107 CARBON DIOXIDE (test code=CO2) 27.0 mmol/L 21-32 ANION GAP (test code=GAP) 11.7 10-20 GLUCOSE (test code=GLU) 83 mg/dL 74-106 BLOOD UREA NITROGEN (test code=BUN) 16 mg/dL 7-18 GLOMERULAR FILTRATION RATE (test code=GFR) > 60 mL/min >=60 Estimated GFR by using Modified MDRD formula.Chronic kidney disease is defined as either kidney damageor GFR <60 mL/min/1.73 m2 for >3 months. CREATININE (test code=CREAT) 0.50 mg/dL 0.55-1.02 Note change in reference range due to change in reagent. BUN/CREATININE RATIO (test code=BUN/CREA) 32.0 10-20 CALCIUM (test code=CA) 8.3 mg/dL 8.5-10.1 [id number] 05:36:00* Test Item Value Reference Range Comments TROPONIN-I (test code=TROPI) <0.015 ng/mL 0-0.045 BASIC METABOLIC [id number] 05:30:00* Test Item Value Reference Range Comments SODIUM (test code=NA) 147 mmol/L 136-145 POTASSIUM (test code=K) 3.7 mmol/L 3.5-5.1 CHLORIDE (test code=CL) 112.0 mmol/L 98-107 CARBON DIOXIDE (test code=CO2) mmol/L 21-32 ANION GAP (test code=GAP) 10-20 GLUCOSE (test code=GLU) mg/dL 74-106 BLOOD UREA NITROGEN (test code=BUN) mg/dL 7-18 GLOMERULAR FILTRATION RATE (test code=GFR) mL/min >=60 CREATININE (test code=CREAT) mg/dL 0.55-1.02 BUN/CREATININE RATIO (test code=BUN/CREA) 10-20 CALCIUM (test code=CA) 8.3 mg/dL 8.5-10.1 [id number] 05:30:00* Test Item Value Reference Range Comments TROPONIN-I (test code=TROPI) ng/mL 0-0.045 BASIC METABOLIC [id number] 02:23:00* Test Item Value Reference Range Comments SODIUM (test code=NA) 143 mmol/L 136-145 POTASSIUM (test code=K) 2.8 mmol/L 3.5-5.1 Results called to [id number] by V.LAB.LEA 12/28/18 0222Critical results verified and read back by Nurse? Y CHLORIDE (test code=CL) 112.0 mmol/L 98-107 CARBON DIOXIDE (test code=CO2) 23.0 mmol/L 21-32 ANION GAP (test code=GAP) 10-20 GLUCOSE (test code=GLU) 90 mg/dL 74-106 BLOOD UREA NITROGEN (test code=BUN) 15 mg/dL 7-18 GLOMERULAR FILTRATION RATE (test code=GFR) > 60 mL/min >=60 Estimated GFR by using Modified MDRD formula.Chronic kidney disease is defined as either kidney damageor GFR <60 mL/min/1.73 m2 for >3 months. CREATININE (test code=CREAT) 0.60 mg/dL 0.55-1.02 Note change in reference range due to change in reagent. BUN/CREATININE RATIO (test code=BUN/CREA) 27.1 10-20 CALCIUM (test code=CA) 8.4 mg/dL 8.5-10.1 [id number] 02:23:00* Test Item Value Reference Range Comments CKMB (test code=CKMBT) 1.1 ng/mL 0-6.0 [id number] 02:23:00* Test Item Value Reference Range Comments TROPONIN-I (test code=TROPI) <0.015 ng/mL 0-0.045 BASIC METABOLIC [id number] 02:23:00* Test Item Value Reference Range Comments SODIUM (test code=NA) 143 mmol/L 136-145 POTASSIUM (test code=K) 2.8 mmol/L 3.5-5.1 Results called to [id number] by V.LAB.LEA 12/28/18 0222Critical results verified and read back by Nurse? Y CHLORIDE (test code=CL) 112.0 mmol/L 98-107 CARBON DIOXIDE (test code=CO2) 23.0 mmol/L 21-32 Previously reported result: 23.0 mmol/LEdited by: V.LABCHIQUI on 12/28/18:0223 ANION GAP (test code=GAP) 10.8 10-20 GLUCOSE (test code=GLU) 90 mg/dL 74-106 BLOOD UREA NITROGEN (test code=BUN) 15 mg/dL 7-18 GLOMERULAR FILTRATION RATE (test code=GFR) > 60 mL/min >=60 Estimated GFR by using Modified MDRD formula.Chronic kidney disease is defined as either kidney damageor GFR <60 mL/min/1.73 m2 for >3 months. CREATININE (test code=CREAT) 0.60 mg/dL 0.55-1.02 Note change in reference range due to change in reagent. BUN/CREATININE RATIO (test code=BUN/CREA) 27.1 10-20 CALCIUM (test code=CA) 8.4 mg/dL 8.5-10.1 [id number] 02:23:00* Test Item Value Reference Range Comments CKMB (test code=CKMBT) 1.1 ng/mL 0-6.0 [id number] 02:23:00* Test Item Value Reference Range Comments TROPONIN-I (test code=TROPI) <0.015 ng/mL 0-0.045 BASIC METABOLIC [id number] 02:22:00* Test Item Value Reference Range Comments SODIUM (test code=NA) 143 mmol/L 136-145 POTASSIUM (test code=K) 2.8 mmol/L 3.5-5.1 Results called to [id number] by HUMA 12/28/18 0222Critical results verified and read back by Nurse? Y CHLORIDE (test code=CL) 112.0 mmol/L 98-107 CARBON DIOXIDE (test code=CO2) mmol/L 21-32 ANION GAP (test code=GAP) 10-20 GLUCOSE (test code=GLU) mg/dL 74-106 BLOOD UREA NITROGEN (test code=BUN) mg/dL 7-18 GLOMERULAR FILTRATION RATE (test code=GFR) mL/min >=60 CREATININE (test code=CREAT) mg/dL 0.55-1.02 BUN/CREATININE RATIO (test code=BUN/CREA) 10-20 CALCIUM (test code=CA) mg/dL 8.5-10.1 [id number] 02:22:00* Test Item Value Reference Range Comments CKMB (test code=CKMBT) ng/mL 0-6.0 [id number] 02:22:00* Test Item Value Reference Range Comments TROPONIN-I (test code=TROPI) ng/mL 0-0.045 CBC W/AUTO [id number] 02:14:00* Test Item Value Reference Range Comments WHITE BLOOD CELL (test code=WBC) 8.5 K/mm3 4.5-12.5 RED BLOOD CELL (test code=RBC) 4.74 mill/mm3 3.7-5.2 HEMOGLOBIN (test code=HGB) 12.5 gram/dL 11.5-15.5 HEMATOCRIT (test code=HCT) 40.8 % 36.0-46.0 MEAN CELL VOLUME (test code=MCV) 86.1 fL 80-98 MEAN CELL HGB (test code=MCH) 26.4 picogram 27.0-33.0 MEAN CELL HGB CONCETRATION (test code=MCHC) 30.6 gram/dL 33.0-36.0 RED CELL DISTRIBUTION WIDTH (test code=RDW) 18.6 % 11.6-16.2 RED CELL DISTRIBUTION WIDTH SD (test code=RDW-SD) 58.6 fL 37.0-51.0 PLATELET COUNT (test code=PLT) 223 K/mm3 150-450 MEAN PLATELET VOLUME (test code=MPV) 10.8 fL 6.7-11.0 NEUTROPHIL % (test code=NT%) 66.9 % 39.0-69.0 IMMATURE GRANULOCYTE % (test code=IG%) 0.2 % 0.0-5.0 LYMPHOCYTE % (test code=LY%) 16.4 % 25.0-55.0 MONOCYTE % (test code=MO%) 14.6 % 0.0-10.0 EOSINOPHIL % (test code=EO%) 1.4 % 0.0-5.0 BASOPHIL % (test code=BA%) 0.5 % 0.0-1.0 NUCLEATED RBC % (test code=NRBC%) 0.0 % 0-0 NEUTROPHIL # (test code=NT#) 5.66 K/mm3 1.8-7.7 IMMATURE GRANULOCYTE # (test code=IG#) 0.02 x10 3/uL 0-0.03 LYMPHOCYTE # (test code=LY#) 1.39 K/mm3 1.0-5.0 MONOCYTE # (test code=MO#) 1.24 K/mm3 0-0.8 EOSINOPHIL # (test code=EO#) 0.12 K/mm3 0.0-0.5 BASOPHIL # (test code=BA#) 0.04 K/mm3 0.0-0.2 NUCLEATED RBC # (test code=NRBC#) 0.00 K/mm3 0.0-0.1 CBC W/AUTO [id number] 02:11:00* Test Item Value Reference Range Comments WHITE BLOOD CELL (test code=WBC) K/mm3 4.5-12.5 RED BLOOD CELL (test code=RBC) mill/mm3 3.7-5.2 HEMOGLOBIN (test code=HGB) 12.5 gram/dL 11.5-15.5 HEMATOCRIT (test code=HCT) 40.8 % 36.0-46.0 MEAN CELL VOLUME (test code=MCV) fL 80-98 MEAN CELL HGB (test code=MCH) picogram 27.0-33.0 MEAN CELL HGB CONCETRATION (test code=MCHC) gram/dL 33.0-36.0 RED CELL DISTRIBUTION WIDTH (test code=RDW) % 11.6-16.2 RED CELL DISTRIBUTION WIDTH SD (test code=RDW-SD) fL 37.0-51.0 PLATELET COUNT (test code=PLT) K/mm3 150-450 MEAN PLATELET VOLUME (test code=MPV) fL 6.7-11.0 NEUTROPHIL % (test code=NT%) % 39.0-69.0 IMMATURE GRANULOCYTE % (test code=IG%) % 0.0-5.0 LYMPHOCYTE % (test code=LY%) % 25.0-55.0 MONOCYTE % (test code=MO%) % 0.0-10.0 EOSINOPHIL % (test code=EO%) % 0.0-5.0 BASOPHIL % (test code=BA%) % 0.0-1.0 NEUTROPHIL # (test code=NT#) K/mm3 1.8-7.7 LYMPHOCYTE # (test code=LY#) K/mm3 1.0-5.0 MONOCYTE # (test code=MO#) K/mm3 0-0.8 EOSINOPHIL # (test code=EO#) K/mm3 0.0-0.5 BASOPHIL # (test code=BA#) K/mm3 0.0-0.2 - XR CHEST 1 [id number] 01:58:00 FAX: Valeria Galeana [phone] [place]: St: REG Name: DARSHAN LEBLANC [facility] : [birth year] Age/S: 78/F [address] [facility] Unit #: [id number] Loc: [place] [address] Phys: Valeria Guillen MD Acct: [id number] Dis Date: Status: REG ER PHONE #: [phone] Exam Date: 12/28/2018 0155 FAX #: [phone] Reason: cp EXAMS: CPT CODE: [id number] XR CHEST 1 V 54469 AFTER HOURS SERVICE ON: 12/28/2018 1:57 AM AP Portable Chest Location Code M12 HISTORY: cp FINDINGS: Study is limited due to shallow inspiration. There are no infiltrates. There are no pleural effus ions. There is no pneumothorax. Cardiac silhouette is borderline enlarged. Again noted is a large hiatal hernia without significant change in appea kayli from 09/20/2018. IMPRESSION: No active p ulmonary findings. at 0158 Reported and signed by: Gayle Menezes M.D. CC: Valeria Guillen MD Technologist: Eveline Weems Trnscrd Date/Time/By: 07/2018 (0158) : By: Ann-MarieMA50 Orig Print D/T: S: 12/28/2018 (2614) PAGE 1 Signed Report - XR KNEE 3 V [id number] 21:15:00 FAX: David Nelson MD [phone] [place]: St: REG Name: DARSHAN LEBLANC [facility] : [birth year] Age/S: 78/F [address] [facility] Unit #: [id number] Loc: [place] [address] Phys: David Nelson MD Acct: [id number] Dis Date: Status: REG ER PHONE #: [phone] Exam Date: 12/27/20182055 FAX #: [phone] Reason: knee pain EXAMS: CPT CODE: [id number] XR KNEE 3 [place] LT [address] REASON FOR EXAM: knee pain EXAM ORDER DATE: 12/27/2018 8:31 PM Ordering M.D.: David Nelson MD PROCEDURE: - XR KNEE 3 V LT FINDINGS: 4 views of the left knee were obtained. The osseous s tructures are severely osteopenic. Fixation plate, orthopedic screws are seen in the distal left femur, proximal tibia (medial tibial plateau) and in the patella. No evidence of joint effusion. No evidence of acute frac ture IMPRESSION: No acute osseous abnormality Electr onically Signed by [place] on 12/27/2018 at 2114 Re ported and signed by: Norris Redding M.D. CC: David Nelson MD Technologist: SONIA LARA(R) Trnscrd Date/Time/By: 12/27/2018 (2114) : By: Aleena Orig Print D/T: S: 12/27/2018 (2118) PAGE 1 Signed Report - CT HEAD/BRAIN W/O [id number] 17:24:00 Name: KRYSTEN ARAGONMARTINE PORTILLO [facility] : 1940 Age/S: 78 / F [address] Unit #: [id number] Loc: [place] [address] Phys: Marleen Rehman MD Acct: [id number] Dis Date: Status: REG ER PHONE #: [phone] Exam Date: 09/20/2018 1657 FAX #: [phone] Reason: fall EXAMS: CPT CODE: [id number] CT HEAD/BRAIN W/O CONT 76048 HISTORY: fall TECHNIQUE: Noncontrast 2.[address] of the head. Examination acquired within 24 hours of arrival. Automated exposure control for dose reduction. COMPARISON: None FINDINGS: No acute hemorrhage. No intracranial mass, mass effect, or midline shift. No CT evidence of acute infarct. Levine-white matter differentiation is preserved. Periventricular deep white matter hypodensities suggest microvascular disease. No hydrocephalus. No extra- axial fluid collection. Visualized paranasal sinuses are clear. Mastoid air cells and middle ear cavities are clear. Orbital contents are unremarkable. Calvarium and skull base are intact. IMPRESSION: No acute intracranial abnormality. at 1724 Reported and signed by: Lashonda Amaya M.D. CC: Marleen Rehman MD Technologist:Michelle Suh RT(R); MATY Benavides CTDI: DLP: Trnscb Date/Time: 09/20/2018 (1723) [email or web address] Orig Print D/T: S: 09/20/2018 (1726) CTDI: DLP: PAGE 1 Signed Report BASIC METABOLIC [id number] 16:45:00* Test Item Value Reference Range Comments SODIUM (test code=NA) 139 mmol/L 136-145 POTASSIUM (test code=K) 3.6 mmol/L 3.5-5.1 CHLORIDE (test code=CL) 105.0 mmol/L 98-107 CARBON DIOXIDE (test code=CO2) 24.0 mmol/L 21-32 ANION GAP (test code=GAP) 13.6 10-20 GLUCOSE (test code=GLU) 107 mg/dL 74-106 BLOOD UREA NITROGEN (test code=BUN) 23 mg/dL 7-18 GLOMERULAR FILTRATION RATE (test code=GFR) > 60 mL/min >=60 Estimated GFR by using Modified MDRD formula.Chronic kidney disease is defined as either kidney damageor GFR <60 mL/min/1.73 m2 for >3 months. CREATININE (test code=CREAT) 0.70 mg/dL 0.55-1.02 Note change in reference range due to change in reagent. BUN/CREATININE RATIO (test code=BUN/CREA) 32.9 10-20 CALCIUM (test code=CA) 8.8 mg/dL 8.5-10.1 [id number] 16:45:00* Test Item Value Reference Range Comments TROPONIN-I (test code=TROPI) <0.015 ng/mL 0-0.045 PROTHROMBIN [id number] 16:40:00* Test Item Value Reference Range Comments PROTHROMBIN TIME PATIENT (test code=PTP) 13.2 seconds 9.0-14.0 INTERNATIONAL NORMAL RATIO (test code=INR) 1.1 0.8-1.2 The therapeutic range for oral anticoagulant therapy formost indications is an international normalized ratio (INR)of between 2.0 and 3.0. The recommended therapeutic INRrange for various clinical situations is listed below: Clinical Situation INR range Pulmonary e mbolism treatment (2.0-3.0)Venous thrombosis treatmentVenous thrombosis prophylaxis (high risk surgery)Prevention of systemic embolism from: Acute myocardial infarction Valvular heart disease Atrial fibrillation Mechanical prosthetic heart valves (2.5-3.5) IS PATIENT ON ANTICOAGULANTS? NTHROMBOPLASTIN TIME [id number] 16:40:00* Test Item Value Reference Range Comments THROMBOPLASTIN TIME PARTIAL (test code=PTT) 30.3 seconds 25.0-36.5 IS PATIENT ON ANTICOAGULANTS? NCBC W/O [id number] 16:34:00* Test Item Value Reference Range Comments WHITE BLOOD CELL (test code=WBC) 10.0 K/mm3 4.5-12.5 RED BLOOD CELL (test code=RBC) 4.03 mill/mm3 3.7-5.2 HEMOGLOBIN (test code=HGB) 10.7 gram/dL 11.5-15.5 HEMATOCRIT (test code=HCT) 34.5 % 36.0-46.0 MEAN CELL VOLUME (test code=MCV) 85.6 fL 80-98 MEAN CELL HGB (test code=MCH) 26.6 picogram 27.0-33.0 MEAN CELL HGB CONCETRATION (test code=MCHC) 31.0 gram/dL 33.0-36.0 RED CELL DISTRIBUTION WIDTH (test code=RDW) 16.9 % 11.6-16.2 PLATELET COUNT (test code=PLT) 416 K/mm3 150-450 MEAN PLATELET VOLUME (test code=MPV) 9.6 fL 6.7-11.0 BASIC METABOLIC [id number] 16:34:00* Test Item Value Reference Range Comments SODIUM (test code=NA) 139 mmol/L 136-145 POTASSIUM (test code=K) 3.6 mmol/L 3.5-5.1 CHLORIDE (test code=CL) 105.0 mmol/L 98-107 CARBON DIOXIDE (test code=CO2) mmol/L 21-32 ANION GAP (test code=GAP) 10-20 GLUCOSE (test code=GLU) mg/dL 74-106 BLOOD UREA NITROGEN (test code=BUN) mg/dL 7-18 GLOMERULAR FILTRATION RATE (test code=GFR) mL/min >=60 CREATININE (test code=CREAT) mg/dL 0.55-1.02 BUN/CREATININE RATIO (test code=BUN/CREA) 10-20 CALCIUM (test code=CA) mg/dL 8.5-10.1 [id number] 16:34:00* Test Item Value Reference Range Comments TROPONIN-I (test code=TROPI) ng/mL 0-0.045 - XR CHEST 1 [id number] 16:16:00 FAX: Marleen Person [phone] [place]: B St: REG Name: DARSHAN LEBLANC [facility] : [birth year] Age/S: 78/F [address] [facility] Unit #: [id number] Loc: [place] [address] Phys: Marleen Rehman MD Acct: [id number] Dis Date: Status: REG ER PHONE #: [phone] Exam Date: 09/20/2018 1613 FAX #: [phone] Reason: WEAKNESS EXAMS: CPT CODE: [id number] XR CHEST 1 V 41767 REASON FOR EXAM: WEAKNESS Exam Order Date: 09/20/2018 3:49 PM Ordering M.D.: Kraig Rehman MD PROCEDURE: - XR CHEST 1 V ROBERT RISON: September 18, 2018. FINDINGS: The patient is rotated to wards the left. The cardiomediastinal silhouette is unchanged. There is no evidence of an acute infiltrate, pleural effusion, or pneumothorax. Chronic changes with low lung volumes are again seen bi laterally. Degenerative changes and atherosclerotic calcification s. The visualized upper abdomen is unremarkable. IMPRESSIO N: No acute cardiopulmonary process. No significant change when compared to prior. at 1616 Reported and signed by: Lashonda Amaya M.D. CC: Marleen Armstrong MD Technologist: SONIA FORTE IN RT(R) Trnscrd Date/Time/By: 09/20/2018 (294 ) : By: Ann-MariePB10 Orig Print D/T: S: 09/20/2018 (8465) PAGE 1 Signed Report - XR FEMUR MIN 2 VWS [id number] 12:09:00 FAX: Nallely Dempsey MD [phone] [place]: St: REG Name: DARSHAN LEBLANC [facility] : [birth year] Age/S: 78/F [address] Unit #: [id number] Loc: [place] [address] Phys: Nallely Dempsey MD Acct: [id number] Dis Date: Status: REG ER PHONE #: [phone] Exam Date: 09/18/2018 1140 FAX #: [phone] Reason: pain, trauma EXAMS: CPT CODE: [id number] XR FEMUR MIN 2 [place] [address] REASON FOR EXAM: pain, trauma EXAM ORDER DATE: 09/18/2018 10:45 AM Ordering [place]: Nallely Dempsey MD PROCEDURE: - XR FEMUR MIN 2 VWS LT FINDINGS: 3 views of the left femur were obtained. A left gamma nail identified in the proximal femur with fixation plates extending across the entire left femur. No evidence of orthopedic hardware fracture or loosening IMPRESSION: No acute osseous abnormality at 120 Reported and signed by: Norris Redding M.D. CC: Nallely Dempsey MD Technologist: Jayden Gill RT(R); CHELSEA MITCHELL RT (R) Trnscrd Date/Time/By: 09/18/2018 (9 ) : By: Ann-MarieVTL Orig Print D/T: S: 09/18/2018 (2155) PAGE 1 Signed Report - XR TIBIA/FIBULA 2 V [id number] 12:06:00 FAX: Nallely Dempsey MD [phone] [place]: St: REG Name: DARSHAN LEBLANC [facility] : [birth year] Age/S: 78/F [address] Unit #: [id number] Loc: [place] [address] Phys: Nallely Dempsey MD Acct: [id number] Dis Date: Status: REG ER PHONE #: [phone] Exam Date: 09/18/2018 1145 FAX #: [phone] Reason: pain, trauma EXAMS: CPT CODE: [id number] XR TIBIA/FIBULA 2 [place] [id number] REASON FOR EXAM: pain, trauma EXAM ORDER DATE: 09/18/2018 10:45 AM Ordering M.D.: Nallely Dempsey MD PROCEDURE: - XR TIBIA/FI BULA 2 V LT FINDINGS: 4 views of the left lower extremity were obt ained. The osseous structures are severely osteopenic. The fixation plate noted within the left tibial plateau. Chronic left ankle fracture with chronic fusion of the left ankle joint IMPRESSION: No acute o sseous abnormality 19 at 1206 Reported and signed by: Norris Redding M.D. CC: Nallely Dempsey MD Techn ologist: Jayden Gill RT(R); CHELSEA MICTHELL RT (R) Trnnyrd Date/Reagan e/By: 09/18/2018 (9725) : By: AyanL Orig Print D/T: S: 09/18/2018 (7931) PAGE 1 Signed Report - XR FOOT 2 VIEWS [id number] 12:04:00 FAX: Nallely Dempsey MD [phone] [place]: St: REG Name: Ceferino WILKINSCATIADARSHAN [facility] : [birth year] Age/S: 78/F [address] Unit #: [id number] Loc: [place] [address] Phys: Nallely Dempsey MD Acct: [id number] Dis Date: Status: REG ER PHONE #: [phone] Exam Date: 09/18/2018 1150 FAX #: [phone] Reason: pain, trauma EXAMS: CPT CODE: [id number] XR FO[place] [address] [place] [address] REASON FOR EXAM: pain, trauma EXAM ORDER DATE: 09/18/2018 10:45 AM Ordering MJerry: Nallely Dempsey MD PROCEDURE: - XR FOOT 2 V IEWS LT FINDINGS: 2 views of the left foot were obtained. Diffuse osteopenia of the left foot with chronic fusion of the left ankle joint. T here is normal alignment of the phalanges. Moderate narrowing of the first MTP consistent with degenerative changes IMPRESSION: No a cute osseous abnormality Electronically Signed by [place] on at 1200 Reported and signed by: Norris Redding M.D. CC: Nallely Dempsey MD Technologist: Jayden Gill RT(R); CHELSEA MITCHELL RT (R) Trnscrd Da te/Time/By: 09/18/2018 (5193) : By: AyanL Orig Print D/T: S: 09/18 (4812) PAGE 1 Signed Report - XR CHEST 1 [id number] 12:04:00 FAX: Nallely Dempsey MD [phone] [place]: St: REG Name: DARSHAN LEBLANC [facility] : [birth year] Age/S: 78/F [address] Unit #: [id number] Loc: [place] [address] Phys: Nallely Dempsey MD Acct: [id number] Dis Date: Status: REG ER PHONE #: [phone] Exam Date: 09/18/2018 1135 FAX #: [phone] Reason: Shortness of Breath EXAMS: CPT CODE: [id number] XR CHEST 1 V 66415 REASON FOR EXAM: Shortness of Breath EXAM ORDER DATE: 09/18/2018 10:45 AM Ordering M.D.: Nallely Dempsey MD PROCEDURE: - XR CHEST 1 V COMPARISON: 08/17/2018 FINDINGS: Portable AP frontal view of the chest obtained at 11:33 AM shows clear lungs without evidence of con solidation. There is no evidence of effusion. The heart size is minimally enlarged. Pulmonary vasculatures are minimally congested. IMPRESSION: Atelectasis of the bases at 1204 Reported and signed by: Sydnie Redding M.D. CC: Nallely Dempsey MD Technologist: Jayden Gill RT(R); CHELSEA MITCHELL RT (R) Trnscrd Date/Time/By: 09/18/2018 (5073) : By: Ann-MarieVTL Orig Print D/T: S: 09/18/2018 (6764) PAGE 1 Signed Report B-TYPE NATRIURETIC [id number] 12:02:00* Test Item Value Reference Range Comments B-TYPE NATRIURETIC PEPTIDE (test code=BNP) 100.02 pgram/mL 0-100 BASIC METABOLIC [id number] 11:58:00* Test Item Value Reference Range Comments SODIUM (test code=NA) 140 mmol/L 136-145 POTASSIUM (test code=K) 3.7 mmol/L 3.5-5.1 CHLORIDE (test code=CL) 103.0 mmol/L 98-107 CARBON DIOXIDE (test code=CO2) 30.0 mmol/L 21-32 ANION GAP (test code=GAP) 10.7 10-20 GLUCOSE (test code=GLU) 92 mg/dL 74-106 BLOOD UREA NITROGEN (test code=BUN) 28 mg/dL 7-18 GLOMERULAR FILTRATION RATE (test code=GFR) > 60 mL/min >=60 Estimated GFR by using Modified MDRD formula.Chronic kidney disease is defined as either kidney damageor GFR <60 mL/min/1.73 m2 for >3 months. CREATININE (test code=CREAT) 0.80 mg/dL 0.55-1.02 Note change in reference range due to change in reagent. BUN/CREATININE RATIO (test code=BUN/CREA) 35.0 10-20 CALCIUM (test code=CA) 9.3 mg/dL 8.5-10.1 HEPATIC FUNCTION [id number] 11:58:00* Test Item Value Reference Range Comments TOTAL PROTEIN (test code=PROT) 8.6 gram/dL 6.4-8.2 ALBUMIN (test code=ALB) 3.2 g/dL 3.4-5.0 GLOBULIN (test code=GLOB) 5.4 gram/dL 2.7-4.2 ALBUMIN/GLOBULIN RATIO (test code=A/G) 0.6 0.75-1.50 BILIRUBIN TOTAL (test code=BILT) 0.50 mg/dL 0.0-1.0 BILIRUBIN DIRECT (test code=BILD) 0.14 mg/dL 0.0-0.20 SGOT/AST (test code=AST) 19 IUnit/L 15-37 SGPT/ALT (test code=ALT) 17 IUnit/L 12-78 ALKALINE PHOSPHATASE TOTAL (test code=ALKP) 149 IUnit/L 45-117 Note change in reference range due to change in reagent. [id number] 11:58:00* Test Item Value Reference Range Comments LIPASE (test code=LIP) 50 U/L 73.0-393.0 [id number] 11:58:00* Test Item Value Reference Range Comments MAGNESIUM (test code=MAG) 2.5 mg/dL 1.8-2.4 [id number] 11:58:00* Test Item Value Reference Range Comments TROPONIN-I (test code=TROPI) <0.015 ng/mL 0-0.045 BASIC METABOLIC [id number] 11:44:00* Test Item Value Reference Range Comments SODIUM (test code=NA) 140 mmol/L 136-145 POTASSIUM (test code=K) 3.7 mmol/L 3.5-5.1 CHLORIDE (test code=CL) 103.0 mmol/L 98-107 CARBON DIOXIDE (test code=CO2) mmol/L 21-32 ANION GAP (test code=GAP) 10-20 GLUCOSE (test code=GLU) mg/dL 74-106 BLOOD UREA NITROGEN (test code=BUN) mg/dL 7-18 GLOMERULAR FILTRATION RATE (test code=GFR) mL/min >=60 CREATININE (test code=CREAT) mg/dL 0.55-1.02 BUN/CREATININE RATIO (test code=BUN/CREA) 10-20 CALCIUM (test code=CA) mg/dL 8.5-10.1 HEPATIC FUNCTION [id number] 11:44:00* Test Item Value Reference Range Comments TOTAL PROTEIN (test code=PROT) gram/dL 6.4-8.2 ALBUMIN (test code=ALB) g/dL 3.4-5.0 GLOBULIN (test code=GLOB) gram/dL 2.7-4.2 ALBUMIN/GLOBULIN RATIO (test code=A/G) 0.75-1.50 BILIRUBIN TOTAL (test code=BILT) mg/dL 0.0-1.0 BILIRUBIN DIRECT (test code=BILD) mg/dL 0.0-0.20 SGOT/AST (test code=AST) IUnit/L 15-37 SGPT/ALT (test code=ALT) IUnit/L 12-78 ALKALINE PHOSPHATASE TOTAL (test code=ALKP) IUnit/L 45-117 [id number] 11:44:00* Test Item Value Reference Range Comments LIPASE (test code=LIP) U/L 73.0-393.0 [id number] 11:44:00* Test Item Value Reference Range Comments MAGNESIUM (test code=MAG) mg/dL 1.8-2.4 [id number] 11:44:00* Test Item Value Reference Range Comments TROPONIN-I (test code=TROPI) ng/mL 0-0.045 PROTHROMBIN [id number] 11:27:00* Test Item Value Reference Range Comments PROTHROMBIN TIME PATIENT (test code=PTP) 13.7 seconds 9.0-14.0 INTERNATIONAL NORMAL RATIO (test code=INR) 1.2 0.8-1.2 The therapeutic range for oral anticoagulant therapy formost indications is an international normalized ratio (INR)of between 2.0 and 3.0. The recommended therapeutic INRrange for various clinical situations is listed below: Clinical Situation INR range Pulmonary e mbolism treatment (2.0-3.0)Venous thrombosis treatmentVenous thrombosis prophylaxis (high risk surgery)Prevention of systemic embolism from: Acute myocardial infarction Valvular heart disease Atrial fibrillation Mechanical prosthetic heart valves (2.5-3.5) IS PATIENT ON ANTICOAGULANTS? NTHROMBOPLASTIN TIME [id number] 11:27:00* Test Item Value Reference Range Comments THROMBOPLASTIN TIME PARTIAL (test code=PTT) 33.2 seconds 25.0-36.5 IS PATIENT ON ANTICOAGULANTS? NCBC W/O [id number] 11:18:00* Test Item Value Reference Range Comments WHITE BLOOD CELL (test code=WBC) 7.8 K/mm3 4.5-12.5 RED BLOOD CELL (test code=RBC) 3.95 mill/mm3 3.7-5.2 HEMOGLOBIN (test code=HGB) 10.2 gram/dL 11.5-15.5 HEMATOCRIT (test code=HCT) 35.4 % 36.0-46.0 MEAN CELL VOLUME (test code=MCV) 89.6 fL 80-98 MEAN CELL HGB (test code=MCH) 25.8 picogram 27.0-33.0 MEAN CELL HGB CONCETRATION (test code=MCHC) 28.8 gram/dL 33.0-36.0 RED CELL DISTRIBUTION WIDTH (test code=RDW) 17.2 % 11.6-16.2 PLATELET COUNT (test code=PLT) 376 K/mm3 150-450 MEAN PLATELET VOLUME (test code=MPV) 9.4 fL 6.7-11.0 - XR TIBIA/FIBULA 2 V [id number] 11:46:00 FAX: Rubens Lock MD [phone] [place]: St: ADM FAX: Anthony Torres [phone] Name: DARSHAN ARAGON [facility] : 1940 Age/S: 78/F [address] [facility] Unit #: [id number] Loc: [address] [address] Phys: Anthony Torres MD Acct: [id number] Dis Date: Status: ADM IN PHONE #: [phone] Exam Date: 08/23/2018 1035 FAX #: [phone] Reason: H/O FRACTURE. EVALUATE HEALING EXAMS: CPT CODE: [id number] XR TIBIA/FIBULA 2 V 81050 HISTORY: Fracture healing evaluation/cellulitis. C OMPARISON: X-ray from the August 08, 2018. Metallic compression plate within the distal femur with fracture of the distal femur with heali ng noted. Metallic compression plate stabilizing the tibial metaph ysis along its medial margin as well with healed fracture. Narrowed knee j oint in all 3 compartments. Cerclage within the patella. Art hrodesis at the ankle joint with complete fusion of the ankle joint. Calci fication of the ankle syndesmosis as well. Fracture line is still visible within the distal tibia. Endosteal sclerosis is noted. Soft tissue swellin g especially along the anterior margin. Vascular calcifications. at 1146 Reported and signed by: Kehinde Christensen M.D. CC: Rubens Lock MD; Anthony Torres MD Technologist: CHELSEA LARA (R) Trnscrd Date/Time/By: 08/23/2018 ( 1146) : By: [email or web address] Orig Print D/T: S: 08/23/2018 (1144) PAGE 1 Signed Report BASIC METABOLIC [id number] 06:05:00* Test Item Value Reference Range Comments SODIUM (test code=NA) 143 mmol/L 136-145 POTASSIUM (test code=K) 4.3 mmol/L 3.5-5.1 CHLORIDE (test code=CL) 107.0 mmol/L 98-107 CARBON DIOXIDE (test code=CO2) 28.0 mmol/L 21-32 ANION GAP (test code=GAP) 12.3 10-20 GLUCOSE (test code=GLU) 86 mg/dL 74-106 BLOOD UREA NITROGEN (test code=BUN) 36 mg/dL 7-18 GLOMERULAR FILTRATION RATE (test code=GFR) > 60 mL/min >=60 Estimated GFR by using Modified MDRD formula.Chronic kidney disease is defined as either kidney damageor GFR <60 mL/min/1.73 m2 for >3 months. CREATININE (test code=CREAT) 0.50 mg/dL 0.55-1.02 Note change in reference range due to change in reagent. BUN/CREATININE RATIO (test code=BUN/CREA) 66.7 10-20 CALCIUM (test code=CA) 8.9 mg/dL 8.5-10.1 BASIC METABOLIC [id number] 05:58:00* Test Item Value Reference Range Comments SODIUM (test code=NA) 143 mmol/L 136-145 POTASSIUM (test code=K) 4.3 mmol/L 3.5-5.1 CHLORIDE (test code=CL) 107.0 mmol/L 98-107 CARBON DIOXIDE (test code=CO2) mmol/L 21-32 ANION GAP (test code=GAP) 10-20 GLUCOSE (test code=GLU) mg/dL 74-106 BLOOD UREA NITROGEN (test code=BUN) mg/dL 7-18 GLOMERULAR FILTRATION RATE (test code=GFR) mL/min >=60 CREATININE (test code=CREAT) mg/dL 0.55-1.02 BUN/CREATININE RATIO (test code=BUN/CREA) 10-20 CALCIUM (test code=CA) mg/dL 8.5-10.1 CBC W/O [id number] 05:46:00* Test Item Value Reference Range Comments WHITE BLOOD CELL (test code=WBC) 6.8 K/mm3 4.5-12.5 RED BLOOD CELL (test code=RBC) 3.48 mill/mm3 3.7-5.2 HEMOGLOBIN (test code=HGB) 9.0 gram/dL 11.5-15.5 HEMATOCRIT (test code=HCT) 30.5 % 36.0-46.0 MEAN CELL VOLUME (test code=MCV) 87.6 fL 80-98 MEAN CELL HGB (test code=MCH) 25.9 picogram 27.0-33.0 MEAN CELL HGB CONCETRATION (test code=MCHC) 29.5 gram/dL 33.0-36.0 RED CELL DISTRIBUTION WIDTH (test code=RDW) 21.2 % 11.6-16.2 PLATELET COUNT (test code=PLT) 309 K/mm3 150-450 MEAN PLATELET VOLUME (test code=MPV) 10.1 fL 6.7-11.0 BASIC METABOLIC [id number] 06:53:00* Test Item Value Reference Range Comments SODIUM (test code=NA) 141 mmol/L 136-145 POTASSIUM (test code=K) 4.4 mmol/L 3.5-5.1 CHLORIDE (test code=CL) 105.0 mmol/L 98-107 CARBON DIOXIDE (test code=CO2) 30.0 mmol/L 21-32 ANION GAP (test code=GAP) 10.4 10-20 GLUCOSE (test code=GLU) 88 mg/dL 74-106 BLOOD UREA NITROGEN (test code=BUN) 31 mg/dL 7-18 GLOMERULAR FILTRATION RATE (test code=GFR) > 60 mL/min >=60 Estimated GFR by using Modified MDRD formula.Chronic kidney disease is defined as either kidney damageor GFR <60 mL/min/1.73 m2 for >3 months. CREATININE (test code=CREAT) 0.60 mg/dL 0.55-1.02 Note change in reference range due to change in reagent. BUN/CREATININE RATIO (test code=BUN/CREA) 54.2 10-20 CALCIUM (test code=CA) 8.7 mg/dL 8.5-10.1 BASIC METABOLIC [id number] 06:48:00* Test Item Value Reference Range Comments SODIUM (test code=NA) 141 mmol/L 136-145 POTASSIUM (test code=K) 4.4 mmol/L 3.5-5.1 CHLORIDE (test code=CL) 105.0 mmol/L 98-107 CARBON DIOXIDE (test code=CO2) mmol/L 21-32 ANION GAP (test code=GAP) 10-20 GLUCOSE (test code=GLU) mg/dL 74-106 BLOOD UREA NITROGEN (test code=BUN) mg/dL 7-18 GLOMERULAR FILTRATION RATE (test code=GFR) mL/min >=60 CREATININE (test code=CREAT) mg/dL 0.55-1.02 BUN/CREATININE RATIO (test code=BUN/CREA) 10-20 CALCIUM (test code=CA) mg/dL 8.5-10.1 - CT UP EXTRM W W/O CON [id number] 18:48:00 Name: DARSHAN ARAGON [facility] : 1940 Age/S: 78 / F [address] [facility] Unit #: [id number] Loc: [facility] [place] [address] Phys: Rubens oLck MD Acct: [id number] Dis Date: Status: ADM IN PHONE #: [phone] Exam Date: 08/20/2018 1831 FAX #: [phone] Reason: RULE OUT ABSCESS OR BONE INFECTION EXAMS: CPT CODE: [id number] CT UP EXTRM W W/[place] [address] REASON FOR EXAM: RULE OUT ABSCESS OR BONE INFECTION EXAM ORDER DATE: 08/20/2018 12:54 PM Ordering M.D.: Rubens Lock MD PROCEDURE: - CT UP EXTRM W W/O CON LT FINDINGS: CT images of the left elbow were obtained without IV contrast at 2.5mm. Reconstructed coronal and sagittal images were also provided. Dose reduction techniques were applied Artifacts from the fixation plates and metallic screws in the distal left humerus observed. Diffuse subcutaneous edema of the soft tissue without evidence of focal abscess or fluid collection. No evidence of cortical erosion or destruction to suggest acute osteomyelitis IMP RESSION: Soft tissue cellulitis without focal abscess, fluid collection, or osteomyelitis. at 1848 Reported and signed by: Deonte Redding M.D. CC: Rubens Lock MD Technologist:MATY AVERY, RT(R) CT CTDI: DLP: T rnscb Date/Time: 08/20/2018 (1847) t.SDR.VTL Orig Print D /T: S: 08/20/2018 (678) CTDI: DLP: PAGE 1 Signed Report [id number] 17:05:00* Test Item Value Reference Range Comments VANCOMYCIN (test code=VANCO) 15.4 UG/ML 5.0-45.0 [id number] 07:36:00* Test Item Value Reference Range Comments CREATININE (test code=CREAT) 0.60 mg/dL 0.55-1.02 Note change in reference range due to change in reagent. - XR CHEST 1 [id number] 12:34:00 FAX: Rubens Lock MD [phone] [place]: St: ADM Name: DARSHAN LEBLANC [facility] : [birth year] Age/S: 78/F [address] [facility] Unit #: [id number] Loc: [address] [place] [address] Phys: Rubens Lock MD Acct: [id number] Dis Date: Status: ADM IN PHONE #: [phone] Exam Date: 08/17/2018 1219 FAX #: [phone] Reason: productive cough EXAMS: CPT CODE: [id number] XR CHEST 1 V 16431 HISTORY: Productive cough. COMPARISON: July 20, 2018. No acute infiltrates, effusion or congestion. Lung scarring with dependent changes. Moderate cardiomegaly. Retrocardiac hiatal hernia. IMPRESSION: The lungs are clear of infiltrates, effusion or congestion. Lung scarring. at 1234 Reported and signed by: Kehinde Christensen M.D. CC: Rubens Lock MD Technologist: Maty Padilla RT(R) Trnscrd Date/Time/By: 08/17/2018 (2698) : By: [email or web address] Orig Print D/T: S: 08/17/2018 (2675) PAGE 1 Signed Report SED RATE [id number] 12:40:00* Test Item Value Reference Range Comments SED RATE WESTERGREN (test code=SEDW) 76 mm/hr 0-20 SED [id number] 12:40:00* Test Item Value Reference Range Comments SED RATE (test code=SEDW) 76 mm/hr 0-20 WINTROBE METHOD: NORMAL RANGE FOR MEN: 0-9 MM/HR WOMAN: 0-20 MM/HR BASIC METABOLIC [id number] 07:22:00* Test Item Value Reference Range Comments SODIUM (test code=NA) 139 mmol/L 136-145 POTASSIUM (test code=K) 4.3 mmol/L 3.5-5.1 CHLORIDE (test code=CL) 108.0 mmol/L 98-107 CARBON DIOXIDE (test code=CO2) 25.0 mmol/L 21-32 ANION GAP (test code=GAP) 10.3 10-20 GLUCOSE (test code=GLU) 76 mg/dL 74-106 BLOOD UREA NITROGEN (test code=BUN) 22 mg/dL 7-18 GLOMERULAR FILTRATION RATE (test code=GFR) > 60 mL/min >=60 Estimated GFR by using Modified MDRD formula.Chronic kidney disease is defined as either kidney damageor GFR <60 mL/min/1.73 m2 for >3 months. CREATININE (test code=CREAT) 0.60 mg/dL 0.55-1.02 Note change in reference range due to change in reagent. BUN/CREATININE RATIO (test code=BUN/CREA) 37.0 10-20 CALCIUM (test code=CA) 8.8 mg/dL 8.5-10.1 BASIC METABOLIC [id number] 07:13:00* Test Item Value Reference Range Comments SODIUM (test code=NA) 139 mmol/L 136-145 POTASSIUM (test code=K) 4.3 mmol/L 3.5-5.1 CHLORIDE (test code=CL) 108.0 mmol/L 98-107 CARBON DIOXIDE (test code=CO2) mmol/L 21-32 ANION GAP (test code=GAP) 10-20 GLUCOSE (test code=GLU) mg/dL 74-106 BLOOD UREA NITROGEN (test code=BUN) mg/dL 7-18 GLOMERULAR FILTRATION RATE (test code=GFR) mL/min >=60 CREATININE (test code=CREAT) mg/dL 0.55-1.02 BUN/CREATININE RATIO (test code=BUN/CREA) 10-20 CALCIUM (test code=CA) mg/dL 8.5-10.1 CBC W/O [id number] 06:50:00* Test Item Value Reference Range Comments WHITE BLOOD CELL (test code=WBC) 6.1 K/mm3 4.5-12.5 RED BLOOD CELL (test code=RBC) 3.69 mill/mm3 3.7-5.2 HEMOGLOBIN (test code=HGB) 9.4 gram/dL 11.5-15.5 HEMATOCRIT (test code=HCT) 32.0 % 36.0-46.0 MEAN CELL VOLUME (test code=MCV) 86.7 fL 80-98 MEAN CELL HGB (test code=MCH) 25.5 picogram 27.0-33.0 MEAN CELL HGB CONCETRATION (test code=MCHC) 29.4 gram/dL 33.0-36.0 RED CELL DISTRIBUTION WIDTH (test code=RDW) 22.1 % 11.6-16.2 PLATELET COUNT (test code=PLT) 313 K/mm3 150-450 MEAN PLATELET VOLUME (test code=MPV) 9.3 fL 6.7-11.0 VANCOMYCIN [id number] 11:13:00* Test Item Value Reference Range Comments VANCOMYCIN TROUGH (test code=VANCT) 23.9 ug/mL 10-20 [id number] 05:21:00* Test Item Value Reference Range Comments CREATININE (test code=CREAT) 0.60 mg/dL 0.55-1.02 Note change in reference range due to change in reagent. VANCOMYCIN [id number] 09:33:00* Test Item Value Reference Range Comments VANCOMYCIN TROUGH (test code=VANCT) 25.7 ug/mL 10-20 CBC W/AUTO [id number] 08:19:00* Test Item Value Reference Range Comments WHITE BLOOD CELL (test code=WBC) 5.0 K/mm3 4.5-12.5 RED BLOOD CELL (test code=RBC) 3.58 mill/mm3 3.7-5.2 HEMOGLOBIN (test code=HGB) 9.0 gram/dL 11.5-15.5 HEMATOCRIT (test code=HCT) 30.9 % 36.0-46.0 MEAN CELL VOLUME (test code=MCV) 86.3 fL 80-98 MEAN CELL HGB (test code=MCH) 25.1 picogram 27.0-33.0 MEAN CELL HGB CONCETRATION (test code=MCHC) 29.1 gram/dL 33.0-36.0 RED CELL DISTRIBUTION WIDTH (test code=RDW) 21.9 % 11.6-16.2 RED CELL DISTRIBUTION WIDTH SD (test code=RDW-SD) 68.1 fL 37.0-51.0 PLATELET COUNT (test code=PLT) 324 K/mm3 150-450 MEAN PLATELET VOLUME (test code=MPV) 9.4 fL 6.7-11.0 NEUTROPHIL % (test code=NT%) 48.9 % 39.0-69.0 IMMATURE GRANULOCYTE % (test code=IG%) 0.4 % 0.0-5.0 LYMPHOCYTE % (test code=LY%) 32.0 % 25.0-55.0 MONOCYTE % (test code=MO%) 12.5 % 0.0-10.0 EOSINOPHIL % (test code=EO%) 5.8 % 0.0-5.0 BASOPHIL % (test code=BA%) 0.4 % 0.0-1.0 NUCLEATED RBC % (test code=NRBC%) 0.0 % 0-0 NEUTROPHIL # (test code=NT#) 2.46 K/mm3 1.8-7.7 IMMATURE GRANULOCYTE # (test code=IG#) 0.02 x10 3/uL 0-0.03 LYMPHOCYTE # (test code=LY#) 1.61 K/mm3 1.0-5.0 MONOCYTE # (test code=MO#) 0.63 K/mm3 0-0.8 EOSINOPHIL # (test code=EO#) 0.29 K/mm3 0.0-0.5 BASOPHIL # (test code=BA#) 0.02 K/mm3 0.0-0.2 NUCLEATED RBC # (test code=NRBC#) 0.00 K/mm3 0.0-0.1 MANUAL DIFF REQUIRED (test code=MDIFF) NO, ONLY SCAN NEEDED DIFFERENTIAL [id number] 08:19:00* Test Item Value Reference Range Comments STAIN ACCEPTABILITY (test code=STN ACCEPTABLE) STAIN ACCEPTABLE MORPHOLOGY COMMENT (test code=MOC) NORMAL PLATELET ESTIMATE (test code=PLTEST) ADEQUATE PLATELET MORPHOLOGY (test code=PLTMORPH) NORMAL BLOOD UREA [id number] 07:12:00* Test Item Value Reference Range Comments BLOOD UREA NITROGEN (test code=BUN) 20 mg/dL 7-18 [id number] 07:12:00* Test Item Value Reference Range Comments CREATININE (test code=CREAT) 0.60 mg/dL 0.55-1.02 Note change in reference range due to change in reagent. CBC W/AUTO [id number] 06:23:00* Test Item Value Reference Range Comments WHITE BLOOD CELL (test code=WBC) 5.0 K/mm3 4.5-12.5 RED BLOOD CELL (test code=RBC) 3.58 mill/mm3 3.7-5.2 HEMOGLOBIN (test code=HGB) 9.0 gram/dL 11.5-15.5 HEMATOCRIT (test code=HCT) 30.9 % 36.0-46.0 MEAN CELL VOLUME (test code=MCV) 86.3 fL 80-98 MEAN CELL HGB (test code=MCH) 25.1 picogram 27.0-33.0 MEAN CELL HGB CONCETRATION (test code=MCHC) 29.1 gram/dL 33.0-36.0 RED CELL DISTRIBUTION WIDTH (test code=RDW) 21.9 % 11.6-16.2 RED CELL DISTRIBUTION WIDTH SD (test code=RDW-SD) 68.1 fL 37.0-51.0 PLATELET COUNT (test code=PLT) 324 K/mm3 150-450 MEAN PLATELET VOLUME (test code=MPV) 9.4 fL 6.7-11.0 NEUTROPHIL % (test code=NT%) 48.9 % 39.0-69.0 IMMATURE GRANULOCYTE % (test code=IG%) 0.4 % 0.0-5.0 LYMPHOCYTE % (test code=LY%) 32.0 % 25.0-55.0 MONOCYTE % (test code=MO%) 12.5 % 0.0-10.0 EOSINOPHIL % (test code=EO%) 5.8 % 0.0-5.0 BASOPHIL % (test code=BA%) 0.4 % 0.0-1.0 NUCLEATED RBC % (test code=NRBC%) 0.0 % 0-0 NEUTROPHIL # (test code=NT#) 2.46 K/mm3 1.8-7.7 IMMATURE GRANULOCYTE # (test code=IG#) 0.02 x10 3/uL 0-0.03 LYMPHOCYTE # (test code=LY#) 1.61 K/mm3 1.0-5.0 MONOCYTE # (test code=MO#) 0.63 K/mm3 0-0.8 EOSINOPHIL # (test code=EO#) 0.29 K/mm3 0.0-0.5 BASOPHIL # (test code=BA#) 0.02 K/mm3 0.0-0.2 NUCLEATED RBC # (test code=NRBC#) 0.00 K/mm3 0.0-0.1 MANUAL DIFF REQUIRED (test code=MDIFF) NO, ONLY SCAN NEEDED DIFFERENTIAL [id number] 06:23:00* Test Item Value Reference Range Comments STAIN ACCEPTABILITY (test code=STN ACCEPTABLE) CABOT RINGS (test code=CAB) MORPHOLOGY COMMENT (test code=MOC) PLATELET ESTIMATE (test code=PLTEST) PLATELET MORPHOLOGY (test code=PLTMORPH) CBC W/AUTO [id number] 06:23:00* Test Item Value Reference Range Comments WHITE BLOOD CELL (test code=WBC) 5.0 K/mm3 4.5-12.5 RED BLOOD CELL (test code=RBC) 3.58 mill/mm3 3.7-5.2 HEMOGLOBIN (test code=HGB) 9.0 gram/dL 11.5-15.5 HEMATOCRIT (test code=HCT) 30.9 % 36.0-46.0 MEAN CELL VOLUME (test code=MCV) 86.3 fL 80-98 MEAN CELL HGB (test code=MCH) 25.1 picogram 27.0-33.0 MEAN CELL HGB CONCETRATION (test code=MCHC) 29.1 gram/dL 33.0-36.0 RED CELL DISTRIBUTION WIDTH (test code=RDW) 21.9 % 11.6-16.2 RED CELL DISTRIBUTION WIDTH SD (test code=RDW-SD) 68.1 fL 37.0-51.0 PLATELET COUNT (test code=PLT) 324 K/mm3 150-450 MEAN PLATELET VOLUME (test code=MPV) 9.4 fL 6.7-11.0 NEUTROPHIL % (test code=NT%) 48.9 % 39.0-69.0 IMMATURE GRANULOCYTE % (test code=IG%) 0.4 % 0.0-5.0 LYMPHOCYTE % (test code=LY%) 32.0 % 25.0-55.0 MONOCYTE % (test code=MO%) 12.5 % 0.0-10.0 EOSINOPHIL % (test code=EO%) 5.8 % 0.0-5.0 BASOPHIL % (test code=BA%) 0.4 % 0.0-1.0 NUCLEATED RBC % (test code=NRBC%) 0.0 % 0-0 NEUTROPHIL # (test code=NT#) 2.46 K/mm3 1.8-7.7 IMMATURE GRANULOCYTE # (test code=IG#) 0.02 x10 3/uL 0-0.03 LYMPHOCYTE # (test code=LY#) 1.61 K/mm3 1.0-5.0 MONOCYTE # (test code=MO#) 0.63 K/mm3 0-0.8 EOSINOPHIL # (test code=EO#) 0.29 K/mm3 0.0-0.5 BASOPHIL # (test code=BA#) 0.02 K/mm3 0.0-0.2 NUCLEATED RBC # (test code=NRBC#) 0.00 K/mm3 0.0-0.1 MANUAL DIFF REQUIRED (test code=MDIFF) NO, ONLY SCAN NEEDED DIFFERENTIAL [id number] 06:23:00* Test Item Value Reference Range Comments STAIN ACCEPTABILITY (test code=STN ACCEPTABLE) CABOT RINGS (test code=CAB) MORPHOLOGY COMMENT (test code=MOC) PLATELET ESTIMATE (test code=PLTEST) PLATELET MORPHOLOGY (test code=PLTMORPH) CBC W/AUTO [id number] 06:23:00* Test Item Value Reference Range Comments WHITE BLOOD CELL (test code=WBC) 5.0 K/mm3 4.5-12.5 RED BLOOD CELL (test code=RBC) 3.58 mill/mm3 3.7-5.2 HEMOGLOBIN (test code=HGB) 9.0 gram/dL 11.5-15.5 HEMATOCRIT (test code=HCT) 30.9 % 36.0-46.0 MEAN CELL VOLUME (test code=MCV) 86.3 fL 80-98 MEAN CELL HGB (test code=MCH) 25.1 picogram 27.0-33.0 MEAN CELL HGB CONCETRATION (test code=MCHC) 29.1 gram/dL 33.0-36.0 RED CELL DISTRIBUTION WIDTH (test code=RDW) 21.9 % 11.6-16.2 RED CELL DISTRIBUTION WIDTH SD (test code=RDW-SD) 68.1 fL 37.0-51.0 PLATELET COUNT (test code=PLT) 324 K/mm3 150-450 MEAN PLATELET VOLUME (test code=MPV) 9.4 fL 6.7-11.0 NEUTROPHIL % (test code=NT%) 48.9 % 39.0-69.0 IMMATURE GRANULOCYTE % (test code=IG%) 0.4 % 0.0-5.0 LYMPHOCYTE % (test code=LY%) 32.0 % 25.0-55.0 MONOCYTE % (test code=MO%) 12.5 % 0.0-10.0 EOSINOPHIL % (test code=EO%) 5.8 % 0.0-5.0 BASOPHIL % (test code=BA%) 0.4 % 0.0-1.0 NUCLEATED RBC % (test code=NRBC%) 0.0 % 0-0 NEUTROPHIL # (test code=NT#) 2.46 K/mm3 1.8-7.7 IMMATURE GRANULOCYTE # (test code=IG#) 0.02 x10 3/uL 0-0.03 LYMPHOCYTE # (test code=LY#) 1.61 K/mm3 1.0-5.0 MONOCYTE # (test code=MO#) 0.63 K/mm3 0-0.8 EOSINOPHIL # (test code=EO#) 0.29 K/mm3 0.0-0.5 BASOPHIL # (test code=BA#) 0.02 K/mm3 0.0-0.2 NUCLEATED RBC # (test code=NRBC#) 0.00 K/mm3 0.0-0.1 MANUAL DIFF REQUIRED (test code=MDIFF) NO, ONLY SCAN NEEDED DIFFERENTIAL [id number] 06:23:00* Test Item Value Reference Range Comments STAIN ACCEPTABILITY (test code=STN ACCEPTABLE) MORPHOLOGY COMMENT (test code=MOC) PLATELET ESTIMATE (test code=PLTEST) PLATELET MORPHOLOGY (test code=PLTMORPH) CBC W/AUTO [id number] 06:23:00* Test Item Value Reference Range Comments WHITE BLOOD CELL (test code=WBC) 5.0 K/mm3 4.5-12.5 RED BLOOD CELL (test code=RBC) 3.58 mill/mm3 3.7-5.2 HEMOGLOBIN (test code=HGB) 9.0 gram/dL 11.5-15.5 HEMATOCRIT (test code=HCT) 30.9 % 36.0-46.0 MEAN CELL VOLUME (test code=MCV) 86.3 fL 80-98 MEAN CELL HGB (test code=MCH) 25.1 picogram 27.0-33.0 MEAN CELL HGB CONCETRATION (test code=MCHC) 29.1 gram/dL 33.0-36.0 RED CELL DISTRIBUTION WIDTH (test code=RDW) 21.9 % 11.6-16.2 RED CELL DISTRIBUTION WIDTH SD (test code=RDW-SD) 68.1 fL 37.0-51.0 PLATELET COUNT (test code=PLT) 324 K/mm3 150-450 MEAN PLATELET VOLUME (test code=MPV) 9.4 fL 6.7-11.0 NEUTROPHIL % (test code=NT%) 48.9 % 39.0-69.0 IMMATURE GRANULOCYTE % (test code=IG%) 0.4 % 0.0-5.0 LYMPHOCYTE % (test code=LY%) 32.0 % 25.0-55.0 MONOCYTE % (test code=MO%) 12.5 % 0.0-10.0 EOSINOPHIL % (test code=EO%) 5.8 % 0.0-5.0 BASOPHIL % (test code=BA%) 0.4 % 0.0-1.0 NUCLEATED RBC % (test code=NRBC%) 0.0 % 0-0 NEUTROPHIL # (test code=NT#) 2.46 K/mm3 1.8-7.7 IMMATURE GRANULOCYTE # (test code=IG#) 0.02 x10 3/uL 0-0.03 LYMPHOCYTE # (test code=LY#) 1.61 K/mm3 1.0-5.0 MONOCYTE # (test code=MO#) 0.63 K/mm3 0-0.8 EOSINOPHIL # (test code=EO#) 0.29 K/mm3 0.0-0.5 BASOPHIL # (test code=BA#) 0.02 K/mm3 0.0-0.2 NUCLEATED RBC # (test code=NRBC#) 0.00 K/mm3 0.0-0.1 MANUAL DIFF REQUIRED (test code=MDIFF) NO, ONLY SCAN NEEDED DIFFERENTIAL [id number] 06:23:00* Test Item Value Reference Range Comments STAIN ACCEPTABILITY (test code=STN ACCEPTABLE) CABOT RINGS (test code=CAB) MORPHOLOGY COMMENT (test code=MOC) PLATELET ESTIMATE (test code=PLTEST) PLATELET MORPHOLOGY (test code=PLTMORPH) - CT UP EXTREM W/CONT [id number] 14:00:00 Name: DARSHAN ARAGON [facility] : 1940 Age/S: 78 / F [address] [facility] Unit #: [id number] Loc: [place] [address] Phys: Anthony Torres MD Acct: [id number] Dis Date: Status: ADM IN PHONE #: [phone] Exam Date: 08/10/2018 1245 FAX #: [phone] Reason: LEFT ELBOW CELLULITIS. R/O DEEP INFECTION EXAMS: CPT CODE: [id number] CT UP EXTREM W/[place] [address] HISTORY: Left elbow cellulitis. COMPARISON: CT scan from June 28, 2018 and x-ray from August 08, 2018. CT left elbow without contrast: 100 mL of Isovue-370. Automated exposure control. Metallic compression plates in the distal humeral diaphysis and metaphysis extending into the condyles resulting in extensive streak artifact. Diffuse cellulitis along the elbow joint space with fluid seen posteriorly extending into the proximal forearm. No drainable fluid collection is noted. No joint fluid is visible. No bursal fluid collection noted either. The musculature is limited by extensive artifact without gross collection. Mild atrophy of the musculature is noted. IMPRESSION: Diffuse cellulitis along the elbow joint extending to the forearm especially along the dorsum. No elbow joint fluid. No bursal joint f luid. No abscess collection is noted. Musculature is difficult to asse ss but no abscess collection within musculature. Electronically Sign ed by Rancho Christensen on 08/10/2018 at 1400 Reported a nd signed by: Kehinde Christensen M.D. CC: Rubens Lock MD; Anthony Torres MD Technologist:Yandy Castro RT(R),CT; CTDI: DLP: Trnscb Date/Time: 08/10/2018 (1400) [email or web address] Orig Print D/T: S: 08/10/2018 (1403) CTDI: DLP: PAGE 1 Signed Report BASIC METABOLIC [id number] 09:54:00* Test Item Value Reference Range Comments SODIUM (test code=NA) 142 mmol/L 136-145 POTASSIUM (test code=K) 4.4 mmol/L 3.5-5.1 CHLORIDE (test code=CL) 111.0 mmol/L 98-107 CARBON DIOXIDE (test code=CO2) 24.0 mmol/L 21-32 ANION GAP (test code=GAP) 11.4 10-20 GLUCOSE (test code=GLU) 76 mg/dL 74-106 BLOOD UREA NITROGEN (test code=BUN) 18 mg/dL 7-18 GLOMERULAR FILTRATION RATE (test code=GFR) > 60 mL/min >=60 Estimated GFR by using Modified MDRD formula.Chronic kidney disease is defined as either kidney damageor GFR <60 mL/min/1.73 m2 for >3 months. CREATININE (test code=CREAT) 0.60 mg/dL 0.55-1.02 Note change in reference range due to change in reagent. BUN/CREATININE RATIO (test code=BUN/CREA) 28.1 10-20 CALCIUM (test code=CA) 8.6 mg/dL 8.5-10.1 VANCOMYCIN [id number] 09:54:00* Test Item Value Reference Range Comments VANCOMYCIN TROUGH (test code=VANCT) 15.3 ug/mL 04-17 - XR TIBIA/FIBULA 2 V [id number] 09:48:00 FAX: Rubens Lock MD [phone] [place]: St: ADM FAX: Manpreet Singleton MD [phone] Name: DARSHAN ARAGON [facility] : 1940 Age/S: 78/F [address] [facility] Unit #: [id number] Loc: V.[address] [place] [address] Phys: Manpreet Stratton MD Acct: [id number] Dis Date: Status: ADM IN PHONE #: [phone] Exam Date: 08/09/2018922 FAX #: [phone] Reason: heard crack EXAMS: CPT CODE: [id number] XR TIBIA/[place]IBUL[place] [address] [place] [address] HISTORY: [place] crack/fracture evaluation. COMPARISON: Previous day. AP and lateral view of the left leg: Old fracture deformity of the distal fibula with exuberant callus forma tion noted again. Fracture line is still visible. Calcification in the i nterosseous ligaments as well. Metallic compression plates in the distal femur and condyles as well in the proximal tibia along its medial m argin. There is anatomic alignment. The cast obscures detail. No additi onal new fractures are visible. Narrowed knee joint. Completely fused an kle joint. IMPRESSION: No acute fracture visib le. Multiple old fractures and metallic hardware noted. Roxanne ctronically Signed by Rancho Christensen on 08/09/2018 at 0948 Reported and signed by: Kehinde Christensen M.D. CC: Rubens Lock MD; Manpreet Stratton MD Technologist: Diamond Garner( R); Magdalene LARA(R) Trnscrd Date/Time/By: 08/09/2018 (0948) : B y: [email or web address] Orig Print D/T: S: 08/09/2018 (0954) PAGE 1 Signed Report BASIC METABOLIC [id number] 05:53:00* Test Item Value Reference Range Comments SODIUM (test code=NA) 140 mmol/L 136-145 POTASSIUM (test code=K) 4.2 mmol/L 3.5-5.1 CHLORIDE (test code=CL) 109.0 mmol/L 98-107 CARBON DIOXIDE (test code=CO2) 25.0 mmol/L 21-32 ANION GAP (test code=GAP) 10.2 10-20 GLUCOSE (test code=GLU) 85 mg/dL 74-106 BLOOD UREA NITROGEN (test code=BUN) 13 mg/dL 7-18 GLOMERULAR FILTRATION RATE (test code=GFR) > 60 mL/min >=60 Estimated GFR by using Modified MDRD formula.Chronic kidney disease is defined as either kidney damageor GFR <60 mL/min/1.73 m2 for >3 months. CREATININE (test code=CREAT) 0.70 mg/dL 0.55-1.02 Note change in reference range due to change in reagent. BUN/CREATININE RATIO (test code=BUN/CREA) 18.7 10-20 CALCIUM (test code=CA) 8.5 mg/dL 8.5-10.1 BASIC METABOLIC [id number] 05:51:00* Test Item Value Reference Range Comments SODIUM (test code=NA) 140 mmol/L 136-145 POTASSIUM (test code=K) 4.2 mmol/L 3.5-5.1 CHLORIDE (test code=CL) 109.0 mmol/L 98-107 CARBON DIOXIDE (test code=CO2) mmol/L 21-32 ANION GAP (test code=GAP) 10-20 GLUCOSE (test code=GLU) mg/dL 74-106 BLOOD UREA NITROGEN (test code=BUN) mg/dL 7-18 GLOMERULAR FILTRATION RATE (test code=GFR) mL/min >=60 CREATININE (test code=CREAT) mg/dL 0.55-1.02 BUN/CREATININE RATIO (test code=BUN/CREA) 10-20 CALCIUM (test code=CA) mg/dL 8.5-10.1 SED [id number] 11:06:00* Test Item Value Reference Range Comments SED RATE (test code=SEDW) 113 mm/hr 0-30 SED [id number] 11:05:00* Test Item Value Reference Range Comments SED RATE (test code=SEDW) 113 mm/hr 0-30 CBC W/AUTO [id number] 08:48:00* Test Item Value Reference Range Comments WHITE BLOOD CELL (test code=WBC) 6.2 K/mm3 4.5-12.5 RED BLOOD CELL (test code=RBC) 3.53 mill/mm3 3.7-5.2 HEMOGLOBIN (test code=HGB) 9.1 gram/dL 11.5-15.5 HEMATOCRIT (test code=HCT) 30.2 % 36.0-46.0 MEAN CELL VOLUME (test code=MCV) 85.6 fL 80-98 MEAN CELL HGB (test code=MCH) 25.8 picogram 27.0-33.0 MEAN CELL HGB CONCETRATION (test code=MCHC) 30.1 gram/dL 33.0-36.0 RED CELL DISTRIBUTION WIDTH (test code=RDW) 22.7 % 11.6-16.2 RED CELL DISTRIBUTION WIDTH SD (test code=RDW-SD) 69.2 fL 37.0-51.0 PLATELET COUNT (test code=PLT) 328 K/mm3 150-450 MEAN PLATELET VOLUME (test code=MPV) 9.6 fL 6.7-11.0 NEUTROPHIL % (test code=NT%) 55.2 % 39.0-69.0 IMMATURE GRANULOCYTE % (test code=IG%) 0.2 % 0.0-5.0 LYMPHOCYTE % (test code=LY%) 24.6 % 25.0-55.0 MONOCYTE % (test code=MO%) 14.0 % 0.0-10.0 EOSINOPHIL % (test code=EO%) 5.5 % 0.0-5.0 BASOPHIL % (test code=BA%) 0.5 % 0.0-1.0 NUCLEATED RBC % (test code=NRBC%) 0.0 % 0-0 NEUTROPHIL # (test code=NT#) 3.45 K/mm3 1.8-7.7 IMMATURE GRANULOCYTE # (test code=IG#) 0.01 x10 3/uL 0-0.03 LYMPHOCYTE # (test code=LY#) 1.53 K/mm3 1.0-5.0 MONOCYTE # (test code=MO#) 0.87 K/mm3 0-0.8 EOSINOPHIL # (test code=EO#) 0.34 K/mm3 0.0-0.5 BASOPHIL # (test code=BA#) 0.03 K/mm3 0.0-0.2 NUCLEATED RBC # (test code=NRBC#) 0.00 K/mm3 0.0-0.1 MANUAL DIFF REQUIRED (test code=MDIFF) NO, ONLY SCAN NEEDED DIFFERENTIAL [id number] 08:48:00* Test Item Value Reference Range Comments STAIN ACCEPTABILITY (test code=STN ACCEPTABLE) STAIN ACCEPTABLE ANISOCYTOSIS (test code=ANISO) 1+ MICROCYTOSIS (test code=MICR) 1+ PLATELET ESTIMATE (test code=PLTEST) ADEQUATE PLATELET MORPHOLOGY (test code=PLTMORPH) NORMAL C REACTIVE [id number] 08:20:00* Test Item Value Reference Range Comments C REACTIVE PROTEIN (test code=CRP) 5.37 mg/dL 0-0.3 BASIC METABOLIC [id number] 08:09:00* Test Item Value Reference Range Comments SODIUM (test code=NA) 139 mmol/L 136-145 POTASSIUM (test code=K) 4.3 mmol/L 3.5-5.1 CHLORIDE (test code=CL) 106.0 mmol/L 98-107 CARBON DIOXIDE (test code=CO2) 29.0 mmol/L 21-32 ANION GAP (test code=GAP) 8.3 10-20 GLUCOSE (test code=GLU) 78 mg/dL 74-106 BLOOD UREA NITROGEN (test code=BUN) 14 mg/dL 7-18 GLOMERULAR FILTRATION RATE (test code=GFR) > 60 mL/min >=60 Estimated GFR by using Modified MDRD formula.Chronic kidney disease is defined as either kidney damageor GFR <60 mL/min/1.73 m2 for >3 months. CREATININE (test code=CREAT) 0.60 mg/dL 0.55-1.02 Note change in reference range due to change in reagent. BUN/CREATININE RATIO (test code=BUN/CREA) 23.4 10-20 CALCIUM (test code=CA) 8.7 mg/dL 8.5-10.1 PROTHROMBIN [id number] 08:07:00* Test Item Value Reference Range Comments PROTHROMBIN TIME PATIENT (test code=PTP) 12.1 seconds 9.0-14.0 INTERNATIONAL NORMAL RATIO (test code=INR) 1.0 0.8-1.2 The therapeutic range for oral anticoagulant therapy formost indications is an international normalized ratio (INR)of between 2.0 and 3.0. The recommended therapeutic INRrange for various clinical situations is listed below: Clinical Situation INR range Pulmonary e mbolism treatment (2.0-3.0)Venous thrombosis treatmentVenous thrombosis prophylaxis (high risk surgery)Prevention of systemic embolism from: Acute myocardial infarction Valvular heart disease Atrial fibrillation Mechanical prosthetic heart valves (2.5-3.5) IS PATIENT ON ANTICOAGULANTS? NTHROMBOPLASTIN TIME [id number] 08:07:00* Test Item Value Reference Range Comments THROMBOPLASTIN TIME PARTIAL (test code=PTT) 27.9 seconds 25.0-36.5 IS PATIENT ON ANTICOAGULANTS? NBASIC METABOLIC [id number] 08:05:00* Test Item Value Reference Range Comments SODIUM (test code=NA) 139 mmol/L 136-145 POTASSIUM (test code=K) 4.3 mmol/L 3.5-5.1 CHLORIDE (test code=CL) 106.0 mmol/L 98-107 CARBON DIOXIDE (test code=CO2) mmol/L 21-32 ANION GAP (test code=GAP) 10-20 GLUCOSE (test code=GLU) mg/dL 74-106 BLOOD UREA NITROGEN (test code=BUN) mg/dL 7-18 GLOMERULAR FILTRATION RATE (test code=GFR) mL/min >=60 CREATININE (test code=CREAT) mg/dL 0.55-1.02 BUN/CREATININE RATIO (test code=BUN/CREA) 10-20 CALCIUM (test code=CA) mg/dL 8.5-10.1 CBC W/AUTO [id number] 07:57:00* Test Item Value Reference Range Comments WHITE BLOOD CELL (test code=WBC) 6.2 K/mm3 4.5-12.5 RED BLOOD CELL (test code=RBC) 3.53 mill/mm3 3.7-5.2 HEMOGLOBIN (test code=HGB) 9.1 gram/dL 11.5-15.5 HEMATOCRIT (test code=HCT) 30.2 % 36.0-46.0 MEAN CELL VOLUME (test code=MCV) 85.6 fL 80-98 MEAN CELL HGB (test code=MCH) 25.8 picogram 27.0-33.0 MEAN CELL HGB CONCETRATION (test code=MCHC) 30.1 gram/dL 33.0-36.0 RED CELL DISTRIBUTION WIDTH (test code=RDW) 22.7 % 11.6-16.2 RED CELL DISTRIBUTION WIDTH SD (test code=RDW-SD) 69.2 fL 37.0-51.0 PLATELET COUNT (test code=PLT) 328 K/mm3 150-450 MEAN PLATELET VOLUME (test code=MPV) 9.6 fL 6.7-11.0 NEUTROPHIL % (test code=NT%) 55.2 % 39.0-69.0 IMMATURE GRANULOCYTE % (test code=IG%) 0.2 % 0.0-5.0 LYMPHOCYTE % (test code=LY%) 24.6 % 25.0-55.0 MONOCYTE % (test code=MO%) 14.0 % 0.0-10.0 EOSINOPHIL % (test code=EO%) 5.5 % 0.0-5.0 BASOPHIL % (test code=BA%) 0.5 % 0.0-1.0 NUCLEATED RBC % (test code=NRBC%) 0.0 % 0-0 NEUTROPHIL # (test code=NT#) 3.45 K/mm3 1.8-7.7 IMMATURE GRANULOCYTE # (test code=IG#) 0.01 x10 3/uL 0-0.03 LYMPHOCYTE # (test code=LY#) 1.53 K/mm3 1.0-5.0 MONOCYTE # (test code=MO#) 0.87 K/mm3 0-0.8 EOSINOPHIL # (test code=EO#) 0.34 K/mm3 0.0-0.5 BASOPHIL # (test code=BA#) 0.03 K/mm3 0.0-0.2 NUCLEATED RBC # (test code=NRBC#) 0.00 K/mm3 0.0-0.1 MANUAL DIFF REQUIRED (test code=MDIFF) NO, ONLY SCAN NEEDED DIFFERENTIAL [id number] 07:57:00* Test Item Value Reference Range Comments STAIN ACCEPTABILITY (test code=STN ACCEPTABLE) CABOT RINGS (test code=CAB) MORPHOLOGY COMMENT (test code=MOC) PLATELET ESTIMATE (test code=PLTEST) PLATELET MORPHOLOGY (test code=PLTMORPH) CBC W/AUTO [id number] 07:57:00* Test Item Value Reference Range Comments WHITE BLOOD CELL (test code=WBC) 6.2 K/mm3 4.5-12.5 RED BLOOD CELL (test code=RBC) 3.53 mill/mm3 3.7-5.2 HEMOGLOBIN (test code=HGB) 9.1 gram/dL 11.5-15.5 HEMATOCRIT (test code=HCT) 30.2 % 36.0-46.0 MEAN CELL VOLUME (test code=MCV) 85.6 fL 80-98 MEAN CELL HGB (test code=MCH) 25.8 picogram 27.0-33.0 MEAN CELL HGB CONCETRATION (test code=MCHC) 30.1 gram/dL 33.0-36.0 RED CELL DISTRIBUTION WIDTH (test code=RDW) 22.7 % 11.6-16.2 RED CELL DISTRIBUTION WIDTH SD (test code=RDW-SD) 69.2 fL 37.0-51.0 PLATELET COUNT (test code=PLT) 328 K/mm3 150-450 MEAN PLATELET VOLUME (test code=MPV) 9.6 fL 6.7-11.0 NEUTROPHIL % (test code=NT%) 55.2 % 39.0-69.0 IMMATURE GRANULOCYTE % (test code=IG%) 0.2 % 0.0-5.0 LYMPHOCYTE % (test code=LY%) 24.6 % 25.0-55.0 MONOCYTE % (test code=MO%) 14.0 % 0.0-10.0 EOSINOPHIL % (test code=EO%) 5.5 % 0.0-5.0 BASOPHIL % (test code=BA%) 0.5 % 0.0-1.0 NUCLEATED RBC % (test code=NRBC%) 0.0 % 0-0 NEUTROPHIL # (test code=NT#) 3.45 K/mm3 1.8-7.7 IMMATURE GRANULOCYTE # (test code=IG#) 0.01 x10 3/uL 0-0.03 LYMPHOCYTE # (test code=LY#) 1.53 K/mm3 1.0-5.0 MONOCYTE # (test code=MO#) 0.87 K/mm3 0-0.8 EOSINOPHIL # (test code=EO#) 0.34 K/mm3 0.0-0.5 BASOPHIL # (test code=BA#) 0.03 K/mm3 0.0-0.2 NUCLEATED RBC # (test code=NRBC#) 0.00 K/mm3 0.0-0.1 MANUAL DIFF REQUIRED (test code=MDIFF) NO, ONLY SCAN NEEDED DIFFERENTIAL [id number] 07:57:00* Test Item Value Reference Range Comments STAIN ACCEPTABILITY (test code=STN ACCEPTABLE) CABOT RINGS (test code=CAB) MORPHOLOGY COMMENT (test code=MOC) PLATELET ESTIMATE (test code=PLTEST) PLATELET MORPHOLOGY (test code=PLTMORPH) CBC W/AUTO [id number] 07:57:00* Test Item Value Reference Range Comments WHITE BLOOD CELL (test code=WBC) 6.2 K/mm3 4.5-12.5 RED BLOOD CELL (test code=RBC) 3.53 mill/mm3 3.7-5.2 HEMOGLOBIN (test code=HGB) 9.1 gram/dL 11.5-15.5 HEMATOCRIT (test code=HCT) 30.2 % 36.0-46.0 MEAN CELL VOLUME (test code=MCV) 85.6 fL 80-98 MEAN CELL HGB (test code=MCH) 25.8 picogram 27.0-33.0 MEAN CELL HGB CONCETRATION (test code=MCHC) 30.1 gram/dL 33.0-36.0 RED CELL DISTRIBUTION WIDTH (test code=RDW) 22.7 % 11.6-16.2 RED CELL DISTRIBUTION WIDTH SD (test code=RDW-SD) 69.2 fL 37.0-51.0 PLATELET COUNT (test code=PLT) 328 K/mm3 150-450 MEAN PLATELET VOLUME (test code=MPV) 9.6 fL 6.7-11.0 NEUTROPHIL % (test code=NT%) 55.2 % 39.0-69.0 IMMATURE GRANULOCYTE % (test code=IG%) 0.2 % 0.0-5.0 LYMPHOCYTE % (test code=LY%) 24.6 % 25.0-55.0 MONOCYTE % (test code=MO%) 14.0 % 0.0-10.0 EOSINOPHIL % (test code=EO%) 5.5 % 0.0-5.0 BASOPHIL % (test code=BA%) 0.5 % 0.0-1.0 NUCLEATED RBC % (test code=NRBC%) 0.0 % 0-0 NEUTROPHIL # (test code=NT#) 3.45 K/mm3 1.8-7.7 IMMATURE GRANULOCYTE # (test code=IG#) 0.01 x10 3/uL 0-0.03 LYMPHOCYTE # (test code=LY#) 1.53 K/mm3 1.0-5.0 MONOCYTE # (test code=MO#) 0.87 K/mm3 0-0.8 EOSINOPHIL # (test code=EO#) 0.34 K/mm3 0.0-0.5 BASOPHIL # (test code=BA#) 0.03 K/mm3 0.0-0.2 NUCLEATED RBC # (test code=NRBC#) 0.00 K/mm3 0.0-0.1 MANUAL DIFF REQUIRED (test code=MDIFF) NO, ONLY SCAN NEEDED DIFFERENTIAL [id number] 07:57:00* Test Item Value Reference Range Comments STAIN ACCEPTABILITY (test code=STN ACCEPTABLE) MORPHOLOGY COMMENT (test code=MOC) PLATELET ESTIMATE (test code=PLTEST) PLATELET MORPHOLOGY (test code=PLTMORPH) CBC W/AUTO [id number] 07:57:00* Test Item Value Reference Range Comments WHITE BLOOD CELL (test code=WBC) 6.2 K/mm3 4.5-12.5 RED BLOOD CELL (test code=RBC) 3.53 mill/mm3 3.7-5.2 HEMOGLOBIN (test code=HGB) 9.1 gram/dL 11.5-15.5 HEMATOCRIT (test code=HCT) 30.2 % 36.0-46.0 MEAN CELL VOLUME (test code=MCV) 85.6 fL 80-98 MEAN CELL HGB (test code=MCH) 25.8 picogram 27.0-33.0 MEAN CELL HGB CONCETRATION (test code=MCHC) 30.1 gram/dL 33.0-36.0 RED CELL DISTRIBUTION WIDTH (test code=RDW) 22.7 % 11.6-16.2 RED CELL DISTRIBUTION WIDTH SD (test code=RDW-SD) 69.2 fL 37.0-51.0 PLATELET COUNT (test code=PLT) 328 K/mm3 150-450 MEAN PLATELET VOLUME (test code=MPV) 9.6 fL 6.7-11.0 NEUTROPHIL % (test code=NT%) 55.2 % 39.0-69.0 IMMATURE GRANULOCYTE % (test code=IG%) 0.2 % 0.0-5.0 LYMPHOCYTE % (test code=LY%) 24.6 % 25.0-55.0 MONOCYTE % (test code=MO%) 14.0 % 0.0-10.0 EOSINOPHIL % (test code=EO%) 5.5 % 0.0-5.0 BASOPHIL % (test code=BA%) 0.5 % 0.0-1.0 NUCLEATED RBC % (test code=NRBC%) 0.0 % 0-0 NEUTROPHIL # (test code=NT#) 3.45 K/mm3 1.8-7.7 IMMATURE GRANULOCYTE # (test code=IG#) 0.01 x10 3/uL 0-0.03 LYMPHOCYTE # (test code=LY#) 1.53 K/mm3 1.0-5.0 MONOCYTE # (test code=MO#) 0.87 K/mm3 0-0.8 EOSINOPHIL # (test code=EO#) 0.34 K/mm3 0.0-0.5 BASOPHIL # (test code=BA#) 0.03 K/mm3 0.0-0.2 NUCLEATED RBC # (test code=NRBC#) 0.00 K/mm3 0.0-0.1 MANUAL DIFF REQUIRED (test code=MDIFF) NO, ONLY SCAN NEEDED DIFFERENTIAL [id number] 07:57:00* Test Item Value Reference Range Comments STAIN ACCEPTABILITY (test code=STN ACCEPTABLE) CABOT RINGS (test code=CAB) MORPHOLOGY COMMENT (test code=MOC) PLATELET ESTIMATE (test code=PLTEST) PLATELET MORPHOLOGY (test code=PLTMORPH) - US EXTREM NON VASC [id number] 07:28:00 Name: DARSHAN ARAGON [facility] : 1940 Age/S: 78 / F [address] [facility] Unit #: [id number] Loc: [place] [address] Phys: Mariano Godinez MD Acct: [id number] Dis Date: Status: REG ER PHONE #: [phone] Exam Date: 08/08/2018628 FAX #: [phone] Reason: LUE swelling redness EXAMS: CPT CODE: [id number] US EXTREM NON VASC LTD 16493 HISTORY: LUE swelling redness TECHNIQUE: Static grayscale and Doppler images from real time sonographic evaluation of the soft tissues or on the left elbow COMPARISON: None FINDINGS: There is edema of the subcutaneous soft tissues around the left elbow. No well demarcated fluid collection is seen however. IMPRESSION: 1. Edema in the subcutaneous soft tissues around the left elbow but no well demarcated f luid collection is seen at this time. at 0728 Reported and signed by: Sandip Singh MD CC: Mariano Godinez MD Technologist: Luzmaria Garner(S)(ARRT) Trnscb Date/Time: 08/08/2018 (07) [email or web address] Orig Print D/T: S: 08/08/2018 (0731) Probe: PAGE 1 Signed Report - XR HUMERUS 2 + V LT 2018-08-08 05:37:00 FAX: Mariano Godinez MD [phone] [place]: B St: REG Name: DARSHAN LEBLANC [facility] : [birth year] Age/S: 78/F [address] Unit #: [id number] Loc: [place] [address] Phys: Mariano Godinez MD Acct: [id number] Dis Date: Status: REG ER PHONE #: [phone] Exam Date: 08/08/2018 05 FAX #: [phone] Reason: arm pain EXAMS: CPT CODE: [id number] XR HUMERUS 2 + [place] LT [address] - XR TIBIA/FIBULA 2 V LT, - XR E LBOW 3 + V LT, - XR FOREARM 2 VIEWS LT, - XR HUMERUS 2 + V LT, 08/08/2018 4:57 AM Reason For Examination: arm pain Comparison: None available Location: R16: Findings: Again redemonstrated is a partially visualized distal femoral sideplate with interlocking screws and lateral tibiofemoral cerclage. A medial ti bial sideplate with interlocking screws is also seen. Within the distal t ibia again redemonstrated is a minimally displaced fracture, compared to p rior examination there appear to be questionable new sharp lucencies assoc iated with this fracture either compatible with healing or acute on chroni c fracture. Please note that evaluation of this finding is extremely limi isreal secondary to qualitative osteopenia, bony remodeling and overlying stormy ting material limiting evaluation Multiple plate-screw const ruct are seen at the level of the distal humerus in a similar appearance t o prior. No definite posterior joint effusion is seen. Subcutaneous daryl a is noted. There is osseous remodeling of the radial head possibly refle ctive of prior trauma, this appearance limits evaluation for acute fractur e. No posterior joint effusion is seen. Impression: Again redemonstrated is a partially visualized distal femoral sideplate with interlocking screws and lateral tibiofemoral cerclage. A medial tibial sideplate with interlocking screws is also seen. Within the distal tibia again redemonstrated is a minimally displaced fracture, compared to prior examination there appear to be questionable new sharp lucencies associated with this fracture either compatible with healing or acute on chronic fracture. Please note that evaluation of this fi nding is extremely limited secondary to qualitative osteopenia, bony rem odeling and overlying casting material limiting evaluation Multiple plate-screw construct are seen at the level of the distal humerus in a similar appearance to prior. No definite posterior joint e ffusion is seen. Subcutaneous edema is noted. There is osseous PAGE 1 Signed Report (CONTINUED) FAX: Mariano Moore MD [phone] [place]: St: REG Name: CHICA ARAGONLIN Durga PORTILLO [facility] : 1940 Age/S: 78/F [address] [facility] Unit #: [id number] Loc: [place] [address] Phys: Mariano Godinez MD Acct: [id number] Dis Date: Status: REG ER PHONE #: [phone] Exam Date: 08/08/2018 05 FAX #: [phone] Reason: arm pain EXAMS: CPT CODE: [id number] XR HUMERUS 2 + [place] [address] <Continued> remodeling of the radial head possibly reflective of prior trauma, this appearance limits evaluation for acute fracture. No posterior joint effusion is seen. at 0537 Reported and signed by: Celi Lomax M.D. CC: Mariano Godinez MD Technologist: WERO PEREZ RT(R); Magda Maki Trnscrd Date/Time/By: 08/08/2018 (0537) : By: [email or web address] Orig Print D/T: S: 08/08/2018 (0540) PAGE 2 Signed Report - XR FOREARM 2 VIEWS [id number] 05:37:00 FAX: Mariano Godinez MD [phone] [place]: St: REG Name: DARSHAN LEBLANC [facility] : [birth year] Age/S: 78/F [address] [facility] Unit #: [id number] Loc: [place] [address] Phys: Mariano Godinez MD Acct: [id number] Dis Date: Status: REG ER PHONE #: [phone] Exam Date: 08/08/2018 05 FAX #: [phone] Reason: arm pain EXAMS: CPT CODE: [id number] [place]R [place] [address] [place] [address] - XR TIBIA/FIBULA 2 V LT, - XR E LBOW 3 + V LT, - XR FOREARM 2 VIEWS LT, - XR HUMERUS 2 + V LT, 08/08/2018 4:57 AM Reason For Examination: arm pain Comparison: None available Location: R16: Findings: Again redemonstrated is a partially visualized distal femoral sideplate with interlocking screws and lateral tibiofemoral cerclage. A medial ti bial sideplate with interlocking screws is also seen. Within the distal t ibia again redemonstrated is a minimally displaced fracture, compared to p rior examination there appear to be questionable new sharp lucencies assoc iated with this fracture either compatible with healing or acute on chroni c fracture. Please note that evaluation of this finding is extremely limi isreal secondary to qualitative osteopenia, bony remodeling and overlying stormy ting material limiting evaluation Multiple plate-screw const ruct are seen at the level of the distal humerus in a similar appearance t o prior. No definite posterior joint effusion is seen. Subcutaneous daryl a is noted. There is osseous remodeling of the radial head possibly refle ctive of prior trauma, this appearance limits evaluation for acute fractur e. No posterior joint effusion is seen. Impression: Again redemonstrated is a partially visualized distal femoral sideplate with interlocking screws and lateral tibiofemoral cerclage. A medial tibial sideplate with interlocking screws is also seen. Within the distal tibia again redemonstrated is a minimally displaced fracture, compared to prior examination there appear to be questionable new sharp lucencies associated with this fracture either compatible with healing or acute on chronic fracture. Please note that evaluation of this fi nding is extremely limited secondary to qualitative osteopenia, bony rem odeling and overlying casting material limiting evaluation Multiple plate-screw construct are seen at the level of the distal humerus in a similar appearance to prior. No definite posterior joint e ffusion is seen. Subcutaneous edema is noted. There is osseous PAGE 1 Signed Report (CONTINUED) FAX: Mariano Moore MD [phone] [place]: St: REG Name: MARGONAUN Durga PORTILLO [facility] : 1940 Age/S: 78/F [address] [facility] Unit #: [id number] Loc: [place] [address] Phys: Mariano Godinez MD Acct: [id number] Dis Date: Status: REG ER PHONE #: [phone] Exam Date: 08/08/2018 0523 FAX #: [phone] Reason: arm pain EXAMS: CPT CODE: [id number] XR [place] [address] [place] [address] <Continued> remodeling of the radial head possibly reflective of prior trauma, this appearance limits evaluation for acute fracture. No posterior joint effusion is seen. at 0537 Reported and signed by: Celi Lomax M.D. CC: Mariano Godinez MD Technologist: WERO PEREZ RT(R); Magda Makinyrd Date/Time/By: 08/08/2018 (0537) : By: [email or web address] Orig Print D/T: S: 08/08/2018 (0540) PAGE 2 Signed Report - XR ELBOW 3 + V [id number] 05:37:00 FAX: Mariano Godinez MD [phone] [place]: St: REG Name: Ceferino DARSHAN CORONA [facility] : [birth year] Age/S: 78/F [address] [facility] Unit #: [id number] Loc: [place] [address] Phys: Mariano Godinez MD Acct: [id number] Dis Date: Status: REG ER PHONE #: [phone] Exam Date: 08/08/2018 05 FAX #: [phone] Reason: arm pain EXAMS: CPT CODE: [id number] XR ELBOW 3 + [place] [address] - XR TIBIA/FIBULA 2 V LT, - XR E LBOW 3 + V LT, - XR FOREARM 2 VIEWS LT, - XR HUMERUS 2 + V LT, 08/08/2018 4:57 AM Reason For Examination: arm pain Comparison: None available Location: R16: Findings: Again redemonstrated is a partially visualized distal femoral sideplate with interlocking screws and lateral tibiofemoral cerclage. A medial ti bial sideplate with interlocking screws is also seen. Within the distal t ibia again redemonstrated is a minimally displaced fracture, compared to p rior examination there appear to be questionable new sharp lucencies assoc iated with this fracture either compatible with healing or acute on chroni c fracture. Please note that evaluation of this finding is extremely limi isreal secondary to qualitative osteopenia, bony remodeling and overlying stormy ting material limiting evaluation Multiple plate-screw const ruct are seen at the level of the distal humerus in a similar appearance t o prior. No definite posterior joint effusion is seen. Subcutaneous daryl a is noted. There is osseous remodeling of the radial head possibly refle ctive of prior trauma, this appearance limits evaluation for acute fractur e. No posterior joint effusion is seen. Impression: Again redemonstrated is a partially visualized distal femoral sideplate with interlocking screws and lateral tibiofemoral cerclage. A medial tibial sideplate with interlocking screws is also seen. Within the distal tibia again redemonstrated is a minimally displaced fracture, compared to prior examination there appear to be questionable new sharp lucencies associated with this fracture either compatible with healing or acute on chronic fracture. Please note that evaluation of this fi nding is extremely limited secondary to qualitative osteopenia, bony rem odeling and overlying casting material limiting evaluation Multiple plate-screw construct are seen at the level of the distal humerus in a similar appearance to prior. No definite posterior joint e ffusion is seen. Subcutaneous edema is noted. There is osseous PAGE 1 Signed Report (CONTINUED) FAX: Mariano Moore MD [phone] [place]: St: REG Name: CHICA ARAGONLIN Durga PORTILLO [facility] : 1940 Age/S: 78/F [address] [facility] Unit #: [id number] Loc: [place] [address] Phys: Mariano Godinez MD Acct: [id number] Dis Date: Status: REG ER PHONE #: [phone] Exam Date: 08/08/2018 0518 FAX #: [phone] Reason: arm pain EXAMS: CPT CODE: [id number] XR ELBOW 3 + [place] [address] <Continued> remodeling of the radial head possibly reflective of prior trauma, this appearance limits evaluation for acute fracture. No posterior joint effusion is seen. at 0537 Reported and signed by: Celi Lomax M.D. CC: Mariano Godinez MD Technologist: WERO PEREZ RT(R); Magda Maki Trnscrd Date/Time/By: 08/08/2018 (0537) : By: [email or web address] Orig Print D/T: S: 08/08/2018 (4681) PAGE 2 Signed Report - XR TIBIA/FIBULA 2 V [id number] 05:37:00 FAX: Mariano Godinez MD [phone] [place]: St: REG Name: DARSHAN LEBLANC [facility] : [birth year] Age/S: 78/F [address] [facility] Unit #: [id number] Loc: [place] [address] Phys: Mariano Godinez MD Acct: [id number] Dis Date: Status: REG ER PHONE #: [phone] Exam Date: 08/08/2018524 FAX #: [phone] Reason: arm pain EXAMS: CPT CODE: [id number] XR TIBIA/FIBULA 2 V LT [address]158 - XR TIBIA/FIBULA 2 V LT, - XR E LBOW 3 + V LT, - XR FOREARM 2 VIEWS LT, - XR HUMERUS 2 + V LT, 08/08/2018 4:57 AM Reason For Examination: arm pain Comparison: None available Location: R16: Findings: Again redemonstrated is a partially visualized distal femoral sideplate with interlocking screws and lateral tibiofemoral cerclage. A medial ti bial sideplate with interlocking screws is also seen. Within the distal t ibia again redemonstrated is a minimally displaced fracture, compared to p rior examination there appear to be questionable new sharp lucencies assoc iated with this fracture either compatible with healing or acute on chroni c fracture. Please note that evaluation of this finding is extremely limi isreal secondary to qualitative osteopenia, bony remodeling and overlying stormy ting material limiting evaluation Multiple plate-screw const ruct are seen at the level of the distal humerus in a similar appearance t o prior. No definite posterior joint effusion is seen. Subcutaneous daryl a is noted. There is osseous remodeling of the radial head possibly refle ctive of prior trauma, this appearance limits evaluation for acute fractur e. No posterior joint effusion is seen. Impression: Again redemonstrated is a partially visualized distal femoral sideplate with interlocking screws and lateral tibiofemoral cerclage. A medial tibial sideplate with interlocking screws is also seen. Within the distal tibia again redemonstrated is a minimally displaced fracture, compared to prior examination there appear to be questionable new sharp lucencies associated with this fracture either compatible with healing or acute on chronic fracture. Please note that evaluation of this fi nding is extremely limited secondary to qualitative osteopenia, bony rem odeling and overlying casting material limiting evaluation Multiple plate-screw construct are seen at the level of the distal humerus in a similar appearance to prior. No definite posterior joint e ffusion is seen. Subcutaneous edema is noted. There is osseous PAGE 1 Signed Report (CONTINUED) FAX: Mariano Moore MD [phone] [place]: St: REG Name: NAUN ARAGON RAE [facility] : 1940 Age/S: 78/F [address] [facility] Unit #: [id number] Loc: [place] [address] Phys: Mariano Godinez MD Acct: [id number] Dis Date: Status: REG ER PHONE #: [phone] Exam Date: 08/08/2018 05 FAX #: [phone] Reason: arm pain EXAMS: CPT CODE: [id number] XR TIBIA/FIBULA 2 [place] [address] <Continued> remodeling of the radial head possibly reflective of prior trauma, this appearance limits evaluation for acute fracture. No posterior joint effusion is seen. at 0537 Reported and signed by: Celi Lomax M.D. CC: Mariano Godinez MD Technologist: WERO PEREZ, RT(R); Magda Maki Trnnyrd Date/Time/By: 08/08/2018 (0537) : By: [email or web address] Orig Print D/T: S: 08/08/2018 (3588) PAGE 2 Signed Report - XR CHEST 1 [id number] 08:34:00 FAX: Jameel BhaktaChanaJatin Hemal [phone] [place]: St: ADM FAX: Hailey Salvador MD [phone] Name: DARSHAN ARAGON [facility] : 1940 Age/S: 78/F [address] [facility] Unit #: [id number] Loc: V.3092 [place] [address] Phys: Hailey Acosta MD Acct: [id number] Dis Date: Status: ADM IN PHONE #: [phone] Exam Date: 07/20/2018 08 FAX #: [phone] Reason: C/O CHEST MAKING FUNNY NOICE EXAMS: CPT CODE: [id number] XR CHEST 1 V 50988 HISTORY: Sepsis. COMPARISON: July 17, 2018. Improved right lung infiltrates superimposed on scarring from previous exam. Left lung is clear. No effusion or congestion. Cardiomegaly. IMPRESSION: Improving right lung infiltrate superimposed on scarring from previous exam. at 0834 Reported and signed by: Kehinde Christensen M.D. CC: Jatin Bhakta DO; Hailey Acosta MD Technologist: RT APPLE(Rahul) Trnscrd Date/Time/By: 07/20/2018 (0834) : By: [email or web address] Orig Print D/T: S: 07/20/2018 (0806) PAGE 1 Signed Report BASIC METABOLIC [id number] 07:50:00* Test Item Value Reference Range Comments SODIUM (test code=NA) 137 mmol/L 136-145 POTASSIUM (test code=K) 3.8 mmol/L 3.5-5.1 CHLORIDE (test code=CL) 91.0 mmol/L 98-107 CARBON DIOXIDE (test code=CO2) 41.0 mmol/L 21-32 ANION GAP (test code=GAP) 8.8 10-20 GLUCOSE (test code=GLU) 86 mg/dL 74-106 BLOOD UREA NITROGEN (test code=BUN) 28 mg/dL 7-18 GLOMERULAR FILTRATION RATE (test code=GFR) 44 mL/min >=60 Estimated GFR by using Modified MDRD formula.Chronic kidney disease is defined as either kidney damageor GFR <60 mL/min/1.73 m2 for >3 months. CREATININE (test code=CREAT) 1.20 mg/dL 0.55-1.02 Note change in reference range due to change in reagent. BUN/CREATININE RATIO (test code=BUN/CREA) 24.3 10-20 CALCIUM (test code=CA) 9.0 mg/dL 8.5-10.1 BASIC METABOLIC [id number] 07:41:00* Test Item Value Reference Range Comments SODIUM (test code=NA) 137 mmol/L 136-145 POTASSIUM (test code=K) 3.8 mmol/L 3.5-5.1 CHLORIDE (test code=CL) 91.0 mmol/L 98-107 CARBON DIOXIDE (test code=CO2) mmol/L 21-32 ANION GAP (test code=GAP) 10-20 GLUCOSE (test code=GLU) mg/dL 74-106 BLOOD UREA NITROGEN (test code=BUN) mg/dL 7-18 GLOMERULAR FILTRATION RATE (test code=GFR) mL/min >=60 CREATININE (test code=CREAT) mg/dL 0.55-1.02 BUN/CREATININE RATIO (test code=BUN/CREA) 10-20 CALCIUM (test code=CA) mg/dL 8.5-10.1 CBC W/AUTO [id number] 21:42:00* Test Item Value Reference Range Comments WHITE BLOOD CELL (test code=WBC) 6.5 K/mm3 4.5-12.5 RED BLOOD CELL (test code=RBC) 3.55 mill/mm3 3.7-5.2 HEMOGLOBIN (test code=HGB) 8.7 gram/dL 11.5-15.5 HEMATOCRIT (test code=HCT) 30.2 % 36.0-46.0 MEAN CELL VOLUME (test code=MCV) 85.1 fL 80-98 MEAN CELL HGB (test code=MCH) 24.5 picogram 27.0-33.0 MEAN CELL HGB CONCETRATION (test code=MCHC) 28.8 gram/dL 33.0-36.0 RED CELL DISTRIBUTION WIDTH (test code=RDW) 23.3 % 11.6-16.2 RED CELL DISTRIBUTION WIDTH SD (test code=RDW-SD) 71.6 fL 37.0-51.0 PLATELET COUNT (test code=PLT) 337 K/mm3 150-450 MEAN PLATELET VOLUME (test code=MPV) 9.3 fL 6.7-11.0 NEUTROPHIL % (test code=NT%) 57.9 % 39.0-69.0 IMMATURE GRANULOCYTE % (test code=IG%) 0.6 % 0.0-5.0 LYMPHOCYTE % (test code=LY%) 20.7 % 25.0-55.0 MONOCYTE % (test code=MO%) 15.4 % 0.0-10.0 EOSINOPHIL % (test code=EO%) 4.9 % 0.0-5.0 BASOPHIL % (test code=BA%) 0.5 % 0.0-1.0 NUCLEATED RBC % (test code=NRBC%) 0.0 % 0-0 NEUTROPHIL # (test code=NT#) 3.77 K/mm3 1.8-7.7 IMMATURE GRANULOCYTE # (test code=IG#) 0.04 x10 3/uL 0-0.03 LYMPHOCYTE # (test code=LY#) 1.35 K/mm3 1.0-5.0 MONOCYTE # (test code=MO#) 1.00 K/mm3 0-0.8 EOSINOPHIL # (test code=EO#) 0.32 K/mm3 0.0-0.5 BASOPHIL # (test code=BA#) 0.03 K/mm3 0.0-0.2 NUCLEATED RBC # (test code=NRBC#) 0.00 K/mm3 0.0-0.1 MANUAL DIFF REQUIRED (test code=MDIFF) NO, ONLY SCAN NEEDED DIFFERENTIAL [id number] 21:42:00* Test Item Value Reference Range Comments STAIN ACCEPTABILITY (test code=STN ACCEPTABLE) STAIN ACCEPTABLE POLYCHROMASIA (test code=POLC) 1+ ANISOCYTOSIS (test code=ANISO) 1+ MICROCYTOSIS (test code=MICR) 1+ PLATELET ESTIMATE (test code=PLTEST) ADEQUATE PLATELET MORPHOLOGY (test code=PLTMORPH) NORMAL COMPREHENSIVE METABOLIC [id number] 21:23:00* Test Item Value Reference Range Comments SODIUM (test code=NA) 136 mmol/L 136-145 POTASSIUM (test code=K) 3.5 mmol/L 3.5-5.1 CHLORIDE (test code=CL) 90.0 mmol/L 98-107 CARBON DIOXIDE (test code=CO2) 42.0 mmol/L 21-32 ANION GAP (test code=GAP) 7.5 10-20 GLUCOSE (test code=GLU) 96 mg/dL 74-106 BLOOD UREA NITROGEN (test code=BUN) 31 mg/dL 7-18 GLOMERULAR FILTRATION RATE (test code=GFR) 40 mL/min >=60 Estimated GFR by using Modified MDRD formula.Chronic kidney disease is defined as either kidney damageor GFR <60 mL/min/1.73 m2 for >3 months. CREATININE (test code=CREAT) 1.30 mg/dL 0.55-1.02 Note change in reference range due to change in reagent. BUN/CREATININE RATIO (test code=BUN/CREA) 24.6 10-20 TOTAL PROTEIN (test code=PROT) 7.9 gram/dL 6.4-8.2 ALBUMIN (test code=ALB) 2.3 g/dL 3.4-5.0 GLOBULIN (test code=GLOB) 5.6 gram/dL 2.7-4.2 ALBUMIN/GLOBULIN RATIO (test code=A/G) 0.4 0.75-1.50 CALCIUM (test code=CA) 8.9 mg/dL 8.5-10.1 BILIRUBIN TOTAL (test code=BILT) 0.50 mg/dL 0.0-1.0 SGOT/AST (test code=AST) 12 IUnit/L 15-37 SGPT/ALT (test code=ALT) 9 IUnit/L 12-78 ALKALINE PHOSPHATASE TOTAL (test code=ALKP) 111 IUnit/L 45-117 Note change in reference range due to change in reagent. COMPREHENSIVE METABOLIC [id number] 21:17:00* Test Item Value Reference Range Comments SODIUM (test code=NA) 136 mmol/L 136-145 POTASSIUM (test code=K) 3.5 mmol/L 3.5-5.1 CHLORIDE (test code=CL) 90.0 mmol/L 98-107 CARBON DIOXIDE (test code=CO2) mmol/L 21-32 ANION GAP (test code=GAP) 10-20 GLUCOSE (test code=GLU) mg/dL 74-106 BLOOD UREA NITROGEN (test code=BUN) mg/dL 7-18 GLOMERULAR FILTRATION RATE (test code=GFR) mL/min >=60 CREATININE (test code=CREAT) mg/dL 0.55-1.02 BUN/CREATININE RATIO (test code=BUN/CREA) 10-20 TOTAL PROTEIN (test code=PROT) gram/dL 6.4-8.2 ALBUMIN (test code=ALB) g/dL 3.4-5.0 GLOBULIN (test code=GLOB) gram/dL 2.7-4.2 ALBUMIN/GLOBULIN RATIO (test code=A/G) 0.75-1.50 CALCIUM (test code=CA) mg/dL 8.5-10.1 BILIRUBIN TOTAL (test code=BILT) mg/dL 0.0-1.0 SGOT/AST (test code=AST) IUnit/L 15-37 SGPT/ALT (test code=ALT) IUnit/L 12-78 ALKALINE PHOSPHATASE TOTAL (test code=ALKP) IUnit/L 45-117 CBC W/AUTO [id number] 21:05:00* Test Item Value Reference Range Comments WHITE BLOOD CELL (test code=WBC) 6.5 K/mm3 4.5-12.5 RED BLOOD CELL (test code=RBC) 3.55 mill/mm3 3.7-5.2 HEMOGLOBIN (test code=HGB) 8.7 gram/dL 11.5-15.5 HEMATOCRIT (test code=HCT) 30.2 % 36.0-46.0 MEAN CELL VOLUME (test code=MCV) 85.1 fL 80-98 MEAN CELL HGB (test code=MCH) 24.5 picogram 27.0-33.0 MEAN CELL HGB CONCETRATION (test code=MCHC) 28.8 gram/dL 33.0-36.0 RED CELL DISTRIBUTION WIDTH (test code=RDW) 23.3 % 11.6-16.2 RED CELL DISTRIBUTION WIDTH SD (test code=RDW-SD) 71.6 fL 37.0-51.0 PLATELET COUNT (test code=PLT) 337 K/mm3 150-450 MEAN PLATELET VOLUME (test code=MPV) 9.3 fL 6.7-11.0 NEUTROPHIL % (test code=NT%) 57.9 % 39.0-69.0 IMMATURE GRANULOCYTE % (test code=IG%) 0.6 % 0.0-5.0 LYMPHOCYTE % (test code=LY%) 20.7 % 25.0-55.0 MONOCYTE % (test code=MO%) 15.4 % 0.0-10.0 EOSINOPHIL % (test code=EO%) 4.9 % 0.0-5.0 BASOPHIL % (test code=BA%) 0.5 % 0.0-1.0 NUCLEATED RBC % (test code=NRBC%) 0.0 % 0-0 NEUTROPHIL # (test code=NT#) 3.77 K/mm3 1.8-7.7 IMMATURE GRANULOCYTE # (test code=IG#) 0.04 x10 3/uL 0-0.03 LYMPHOCYTE # (test code=LY#) 1.35 K/mm3 1.0-5.0 MONOCYTE # (test code=MO#) 1.00 K/mm3 0-0.8 EOSINOPHIL # (test code=EO#) 0.32 K/mm3 0.0-0.5 BASOPHIL # (test code=BA#) 0.03 K/mm3 0.0-0.2 NUCLEATED RBC # (test code=NRBC#) 0.00 K/mm3 0.0-0.1 MANUAL DIFF REQUIRED (test code=MDIFF) NO, ONLY SCAN NEEDED DIFFERENTIAL [id number] 21:05:00* Test Item Value Reference Range Comments STAIN ACCEPTABILITY (test code=STN ACCEPTABLE) CABOT RINGS (test code=CAB) MORPHOLOGY COMMENT (test code=MOC) PLATELET ESTIMATE (test code=PLTEST) PLATELET MORPHOLOGY (test code=PLTMORPH) CBC W/AUTO [id number] 21:05:00* Test Item Value Reference Range Comments WHITE BLOOD CELL (test code=WBC) 6.5 K/mm3 4.5-12.5 RED BLOOD CELL (test code=RBC) 3.55 mill/mm3 3.7-5.2 HEMOGLOBIN (test code=HGB) 8.7 gram/dL 11.5-15.5 HEMATOCRIT (test code=HCT) 30.2 % 36.0-46.0 MEAN CELL VOLUME (test code=MCV) 85.1 fL 80-98 MEAN CELL HGB (test code=MCH) 24.5 picogram 27.0-33.0 MEAN CELL HGB CONCETRATION (test code=MCHC) 28.8 gram/dL 33.0-36.0 RED CELL DISTRIBUTION WIDTH (test code=RDW) 23.3 % 11.6-16.2 RED CELL DISTRIBUTION WIDTH SD (test code=RDW-SD) 71.6 fL 37.0-51.0 PLATELET COUNT (test code=PLT) 337 K/mm3 150-450 MEAN PLATELET VOLUME (test code=MPV) 9.3 fL 6.7-11.0 NEUTROPHIL % (test code=NT%) 57.9 % 39.0-69.0 IMMATURE GRANULOCYTE % (test code=IG%) 0.6 % 0.0-5.0 LYMPHOCYTE % (test code=LY%) 20.7 % 25.0-55.0 MONOCYTE % (test code=MO%) 15.4 % 0.0-10.0 EOSINOPHIL % (test code=EO%) 4.9 % 0.0-5.0 BASOPHIL % (test code=BA%) 0.5 % 0.0-1.0 NUCLEATED RBC % (test code=NRBC%) 0.0 % 0-0 NEUTROPHIL # (test code=NT#) 3.77 K/mm3 1.8-7.7 IMMATURE GRANULOCYTE # (test code=IG#) 0.04 x10 3/uL 0-0.03 LYMPHOCYTE # (test code=LY#) 1.35 K/mm3 1.0-5.0 MONOCYTE # (test code=MO#) 1.00 K/mm3 0-0.8 EOSINOPHIL # (test code=EO#) 0.32 K/mm3 0.0-0.5 BASOPHIL # (test code=BA#) 0.03 K/mm3 0.0-0.2 NUCLEATED RBC # (test code=NRBC#) 0.00 K/mm3 0.0-0.1 MANUAL DIFF REQUIRED (test code=MDIFF) NO, ONLY SCAN NEEDED DIFFERENTIAL [id number] 21:05:00* Test Item Value Reference Range Comments STAIN ACCEPTABILITY (test code=STN ACCEPTABLE) CABOT RINGS (test code=CAB) MORPHOLOGY COMMENT (test code=MOC) PLATELET ESTIMATE (test code=PLTEST) PLATELET MORPHOLOGY (test code=PLTMORPH) CBC W/AUTO [id number] 21:05:00* Test Item Value Reference Range Comments WHITE BLOOD CELL (test code=WBC) 6.5 K/mm3 4.5-12.5 RED BLOOD CELL (test code=RBC) 3.55 mill/mm3 3.7-5.2 HEMOGLOBIN (test code=HGB) 8.7 gram/dL 11.5-15.5 HEMATOCRIT (test code=HCT) 30.2 % 36.0-46.0 MEAN CELL VOLUME (test code=MCV) 85.1 fL 80-98 MEAN CELL HGB (test code=MCH) 24.5 picogram 27.0-33.0 MEAN CELL HGB CONCETRATION (test code=MCHC) 28.8 gram/dL 33.0-36.0 RED CELL DISTRIBUTION WIDTH (test code=RDW) 23.3 % 11.6-16.2 RED CELL DISTRIBUTION WIDTH SD (test code=RDW-SD) 71.6 fL 37.0-51.0 PLATELET COUNT (test code=PLT) 337 K/mm3 150-450 MEAN PLATELET VOLUME (test code=MPV) 9.3 fL 6.7-11.0 NEUTROPHIL % (test code=NT%) 57.9 % 39.0-69.0 IMMATURE GRANULOCYTE % (test code=IG%) 0.6 % 0.0-5.0 LYMPHOCYTE % (test code=LY%) 20.7 % 25.0-55.0 MONOCYTE % (test code=MO%) 15.4 % 0.0-10.0 EOSINOPHIL % (test code=EO%) 4.9 % 0.0-5.0 BASOPHIL % (test code=BA%) 0.5 % 0.0-1.0 NUCLEATED RBC % (test code=NRBC%) 0.0 % 0-0 NEUTROPHIL # (test code=NT#) 3.77 K/mm3 1.8-7.7 IMMATURE GRANULOCYTE # (test code=IG#) 0.04 x10 3/uL 0-0.03 LYMPHOCYTE # (test code=LY#) 1.35 K/mm3 1.0-5.0 MONOCYTE # (test code=MO#) 1.00 K/mm3 0-0.8 EOSINOPHIL # (test code=EO#) 0.32 K/mm3 0.0-0.5 BASOPHIL # (test code=BA#) 0.03 K/mm3 0.0-0.2 NUCLEATED RBC # (test code=NRBC#) 0.00 K/mm3 0.0-0.1 MANUAL DIFF REQUIRED (test code=MDIFF) NO, ONLY SCAN NEEDED DIFFERENTIAL [id number] 21:05:00* Test Item Value Reference Range Comments STAIN ACCEPTABILITY (test code=STN ACCEPTABLE) MORPHOLOGY COMMENT (test code=MOC) PLATELET ESTIMATE (test code=PLTEST) PLATELET MORPHOLOGY (test code=PLTMORPH) CBC W/AUTO [id number] 21:05:00* Test Item Value Reference Range Comments WHITE BLOOD CELL (test code=WBC) 6.5 K/mm3 4.5-12.5 RED BLOOD CELL (test code=RBC) 3.55 mill/mm3 3.7-5.2 HEMOGLOBIN (test code=HGB) 8.7 gram/dL 11.5-15.5 HEMATOCRIT (test code=HCT) 30.2 % 36.0-46.0 MEAN CELL VOLUME (test code=MCV) 85.1 fL 80-98 MEAN CELL HGB (test code=MCH) 24.5 picogram 27.0-33.0 MEAN CELL HGB CONCETRATION (test code=MCHC) 28.8 gram/dL 33.0-36.0 RED CELL DISTRIBUTION WIDTH (test code=RDW) 23.3 % 11.6-16.2 RED CELL DISTRIBUTION WIDTH SD (test code=RDW-SD) 71.6 fL 37.0-51.0 PLATELET COUNT (test code=PLT) 337 K/mm3 150-450 MEAN PLATELET VOLUME (test code=MPV) 9.3 fL 6.7-11.0 NEUTROPHIL % (test code=NT%) 57.9 % 39.0-69.0 IMMATURE GRANULOCYTE % (test code=IG%) 0.6 % 0.0-5.0 LYMPHOCYTE % (test code=LY%) 20.7 % 25.0-55.0 MONOCYTE % (test code=MO%) 15.4 % 0.0-10.0 EOSINOPHIL % (test code=EO%) 4.9 % 0.0-5.0 BASOPHIL % (test code=BA%) 0.5 % 0.0-1.0 NUCLEATED RBC % (test code=NRBC%) 0.0 % 0-0 NEUTROPHIL # (test code=NT#) 3.77 K/mm3 1.8-7.7 IMMATURE GRANULOCYTE # (test code=IG#) 0.04 x10 3/uL 0-0.03 LYMPHOCYTE # (test code=LY#) 1.35 K/mm3 1.0-5.0 MONOCYTE # (test code=MO#) 1.00 K/mm3 0-0.8 EOSINOPHIL # (test code=EO#) 0.32 K/mm3 0.0-0.5 BASOPHIL # (test code=BA#) 0.03 K/mm3 0.0-0.2 NUCLEATED RBC # (test code=NRBC#) 0.00 K/mm3 0.0-0.1 MANUAL DIFF REQUIRED (test code=MDIFF) NO, ONLY SCAN NEEDED DIFFERENTIAL [id number] 21:05:00* Test Item Value Reference Range Comments STAIN ACCEPTABILITY (test code=STN ACCEPTABLE) CABOT RINGS (test code=CAB) MORPHOLOGY COMMENT (test code=MOC) PLATELET ESTIMATE (test code=PLTEST) PLATELET MORPHOLOGY (test code=PLTMORPH) PROCALCITONIN (PCT)2018-07-17 16:05:00* Test Item Value Reference Range Comments PROCALCITONIN (PCT) (test code=PROCAL) < 0.05 ng/ml Concentration Interpretation (ng/mL) <0.51 Sepsis is not likely. Local bacterial infection is possible. (LOW RISK for progression to Sepsis) 0.51 - 2.00 Sepsis is possible, but other conditions are known to elevate PCT as well. (MODERATE RISK for progression to Sepsis) > 2.00 Sepsis is likely, unless other causes are known. (HIGH RISK for progression to Severe Sepsis or Septic Shock) 10.00 High likelihood of Severe Sepsis or Septic or higher Shock. *Increased PCT levels may not always be related to systemic bacterial infection.*Low PCT levels do not automatically exclude the presence of bacterial infection.*All results should be interpreted taking into account the patients history. B-TYPE NATRIURETIC [id number] 15:58:00* Test Item Value Reference Range Comments B-TYPE NATRIURETIC PEPTIDE (test code=BNP) 104.47 pgram/mL 0-100 - XR CHEST 2 [id number] 14:47:00 FAX: Abilio Tejada MD [place]: B St: ADM FAX: Jatin Win tania [phone] Name: DARSHAN ARAGON [facility] : 1940 Age/S: 78/F [address] Unit #: [id number] Loc: V.3092 [place] [address] Phys: Abilio Tejada MD Acct: [id number] Dis Date: Status: ADM IN PHONE #: [phone] Exam Date: 07/17/2018 1440 FAX #: [phone] Reason: SOB EXAMS: CPT CODE: [id number] XR CHEST 2 V 85354 EXAM: Chest x-ray, 2 views; INFORMATION: Shortness of breath, sepsis; IMPRESSION: 1. No significant change compared with a study from July 15, 2018; persistent patchy infiltrative changes in both lungs, most pronounced in the right upper lobe. 2. Moderate cardiomegaly. at 0094 Reported and signed by: Ant Garcia M.D. CC: Abilio Tejada MD; Jatin Bhakta DO Technologist: SONIA RAVI RT(R) Trnscrd Date/Time/By: 07/17/2018 (7645) : By: Ann-MarieGRW Orig Print D/T: S: 07/17/2018 (0048) PAGE 1 Signed Report BASIC METABOLIC [id number] 07:51:00* Test Item Value Reference Range Comments SODIUM (test code=NA) 138 mmol/L 136-145 POTASSIUM (test code=K) 3.5 mmol/L 3.5-5.1 CHLORIDE (test code=CL) 95.0 mmol/L 98-107 CARBON DIOXIDE (test code=CO2) 37.0 mmol/L 21-32 ANION GAP (test code=GAP) 9.5 10-20 GLUCOSE (test code=GLU) 95 mg/dL 74-106 BLOOD UREA NITROGEN (test code=BUN) 23 mg/dL 7-18 GLOMERULAR FILTRATION RATE (test code=GFR) 44 mL/min >=60 Estimated GFR by using Modified MDRD formula.Chronic kidney disease is defined as either kidney damageor GFR <60 mL/min/1.73 m2 for >3 months. CREATININE (test code=CREAT) 1.20 mg/dL 0.55-1.02 Note change in reference range due to change in reagent. BUN/CREATININE RATIO (test code=BUN/CREA) 20.0 10-20 CALCIUM (test code=CA) 8.8 mg/dL 8.5-10.1 SPECIMEN COMMENTS: BMP IN [id number] 07:51:00* Test Item Value Reference Range Comments MAGNESIUM (test code=MAG) 2.4 mg/dL 1.8-2.4 SPECIMEN COMMENTS: BMP IN AMBASIC METABOLIC [id number] 07:48:00* Test Item Value Reference Range Comments SODIUM (test code=NA) 138 mmol/L 136-145 POTASSIUM (test code=K) 3.5 mmol/L 3.5-5.1 CHLORIDE (test code=CL) 95.0 mmol/L 98-107 CARBON DIOXIDE (test code=CO2) mmol/L 21-32 ANION GAP (test code=GAP) 10-20 GLUCOSE (test code=GLU) mg/dL 74-106 BLOOD UREA NITROGEN (test code=BUN) mg/dL 7-18 GLOMERULAR FILTRATION RATE (test code=GFR) mL/min >=60 CREATININE (test code=CREAT) mg/dL 0.55-1.02 BUN/CREATININE RATIO (test code=BUN/CREA) 10-20 CALCIUM (test code=CA) mg/dL 8.5-10.1 SPECIMEN COMMENTS: BMP IN [id number] 07:48:00* Test Item Value Reference Range Comments MAGNESIUM (test code=MAG) mg/dL 1.8-2.4 SPECIMEN COMMENTS: BMP IN AMVANCOMYCIN [id number] 20:36:00* Test Item Value Reference Range Comments VANCOMYCIN TROUGH (test code=VANCT) 12.5 ug/mL 10-20 BASIC METABOLIC [id number] 10:42:00* Test Item Value Reference Range Comments SODIUM (test code=NA) 136 mmol/L 136-145 POTASSIUM (test code=K) 3.0 mmol/L 3.5-5.1 CHLORIDE (test code=CL) 93.0 mmol/L 98-107 CARBON DIOXIDE (test code=CO2) 38.0 mmol/L 21-32 ANION GAP (test code=GAP) 8.0 10-20 GLUCOSE (test code=GLU) 127 mg/dL 74-106 BLOOD UREA NITROGEN (test code=BUN) 23 mg/dL 7-18 GLOMERULAR FILTRATION RATE (test code=GFR) 40 mL/min >=60 Estimated GFR by using Modified MDRD formula.Chronic kidney disease is defined as either kidney damageor GFR <60 mL/min/1.73 m2 for >3 months. CREATININE (test code=CREAT) 1.30 mg/dL 0.55-1.02 Note change in reference range due to change in reagent. BUN/CREATININE RATIO (test code=BUN/CREA) 18.3 10-20 CALCIUM (test code=CA) 9.0 mg/dL 8.5-10.1 BASIC METABOLIC [id number] 10:40:00* Test Item Value Reference Range Comments SODIUM (test code=NA) 136 mmol/L 136-145 POTASSIUM (test code=K) 3.0 mmol/L 3.5-5.1 CHLORIDE (test code=CL) 93.0 mmol/L 98-107 CARBON DIOXIDE (test code=CO2) mmol/L 21-32 ANION GAP (test code=GAP) 10-20 GLUCOSE (test code=GLU) mg/dL 74-106 BLOOD UREA NITROGEN (test code=BUN) mg/dL 7-18 GLOMERULAR FILTRATION RATE (test code=GFR) mL/min >=60 CREATININE (test code=CREAT) mg/dL 0.55-1.02 BUN/CREATININE RATIO (test code=BUN/CREA) 10-20 CALCIUM (test code=CA) mg/dL 8.5-10.1 - XR LW [facility] W/C [id number] 09:08:00 FAX: Jatin Win [phone] [place]: [address]: ADM Name: DARSHAN LEBLANC LINDSEY [facility] : [birth year] Age/S: 78/F [address] Unit #: [id number] Loc: V.3092 VY Bae [address] Phys: Jatin Bhakta ng DO Acct: [id number] Dis Date: Status: ADM IN PHONE #: [phone] Exam Date: 07/14/2018 1107 FAX #: [phone] Reason: ASSESS SWALLOW EXAMS: CPT CODE: [id number] XR SWLW FUNC W/C V [id number] EXAM: Modified barium swallow; INFORMATION: Dysphagia; IMPRESSION: Evaluation of the swallowing mechanism using fluoroscopic imaging as well as thin and thick liquids shows no evidence of aspiration or penetration identified. Delayed triggering of pharyngeal swallow was noticed. Fluoroscopy Time: 78 sec CAK: 7.71 mGy at 0908 Reported and signed by: Ant Garcia M.D. CC: Jatin Bhakta DO Technologist: Shara valle Trnscrd Date/Time/By: 07/16/2018 (907) : By: Fabiana Orig Print D/T: S: 07/16/2018 (910) PAGE 1 Signed Report CBC W/AUTO [id number] 08:33:00* Test Item Value Reference Range Comments WHITE BLOOD CELL (test code=WBC) 8.0 K/mm3 4.5-12.5 RED BLOOD CELL (test code=RBC) 3.31 mill/mm3 3.7-5.2 HEMOGLOBIN (test code=HGB) 8.1 gram/dL 11.5-15.5 HEMATOCRIT (test code=HCT) 28.2 % 36.0-46.0 MEAN CELL VOLUME (test code=MCV) 85.2 fL 80-98 MEAN CELL HGB (test code=MCH) 24.5 picogram 27.0-33.0 MEAN CELL HGB CONCETRATION (test code=MCHC) 28.7 gram/dL 33.0-36.0 RED CELL DISTRIBUTION WIDTH (test code=RDW) 23.8 % 11.6-16.2 RED CELL DISTRIBUTION WIDTH SD (test code=RDW-SD) 72.9 fL 37.0-51.0 PLATELET COUNT (test code=PLT) 371 K/mm3 150-450 MEAN PLATELET VOLUME (test code=MPV) 10.1 fL 6.7-11.0 NEUTROPHIL % (test code=NT%) 67.6 % 39.0-69.0 IMMATURE GRANULOCYTE % (test code=IG%) 0.4 % 0.0-5.0 LYMPHOCYTE % (test code=LY%) 16.0 % 25.0-55.0 MONOCYTE % (test code=MO%) 11.6 % 0.0-10.0 EOSINOPHIL % (test code=EO%) 4.2 % 0.0-5.0 BASOPHIL % (test code=BA%) 0.2 % 0.0-1.0 NUCLEATED RBC % (test code=NRBC%) 0.0 % 0-0 NEUTROPHIL # (test code=NT#) 5.43 K/mm3 1.8-7.7 IMMATURE GRANULOCYTE # (test code=IG#) 0.03 x10 3/uL 0-0.03 LYMPHOCYTE # (test code=LY#) 1.29 K/mm3 1.0-5.0 MONOCYTE # (test code=MO#) 0.93 K/mm3 0-0.8 EOSINOPHIL # (test code=EO#) 0.34 K/mm3 0.0-0.5 BASOPHIL # (test code=BA#) 0.02 K/mm3 0.0-0.2 NUCLEATED RBC # (test code=NRBC#) 0.00 K/mm3 0.0-0.1 MANUAL DIFF REQUIRED (test code=MDIFF) NO, ONLY SCAN NEEDED DIFFERENTIAL [id number] 08:33:00* Test Item Value Reference Range Comments STAIN ACCEPTABILITY (test code=STN ACCEPTABLE) STAIN ACCEPTABLE POLYCHROMASIA (test code=POLC) 1+ HYPOCHROMIA (test code=HYPO) 1+ ANISOCYTOSIS (test code=ANISO) 1+ MICROCYTOSIS (test code=MICR) 1+ PLATELET ESTIMATE (test code=PLTEST) ADEQUATE PLATELET MORPHOLOGY (test code=PLTMORPH) NORMAL CBC W/AUTO [id number] 07:01:00* Test Item Value Reference Range Comments WHITE BLOOD CELL (test code=WBC) 8.0 K/mm3 4.5-12.5 RED BLOOD CELL (test code=RBC) 3.31 mill/mm3 3.7-5.2 HEMOGLOBIN (test code=HGB) 8.1 gram/dL 11.5-15.5 HEMATOCRIT (test code=HCT) 28.2 % 36.0-46.0 MEAN CELL VOLUME (test code=MCV) 85.2 fL 80-98 MEAN CELL HGB (test code=MCH) 24.5 picogram 27.0-33.0 MEAN CELL HGB CONCETRATION (test code=MCHC) 28.7 gram/dL 33.0-36.0 RED CELL DISTRIBUTION WIDTH (test code=RDW) 23.8 % 11.6-16.2 RED CELL DISTRIBUTION WIDTH SD (test code=RDW-SD) 72.9 fL 37.0-51.0 PLATELET COUNT (test code=PLT) 371 K/mm3 150-450 MEAN PLATELET VOLUME (test code=MPV) 10.1 fL 6.7-11.0 NEUTROPHIL % (test code=NT%) 67.6 % 39.0-69.0 IMMATURE GRANULOCYTE % (test code=IG%) 0.4 % 0.0-5.0 LYMPHOCYTE % (test code=LY%) 16.0 % 25.0-55.0 MONOCYTE % (test code=MO%) 11.6 % 0.0-10.0 EOSINOPHIL % (test code=EO%) 4.2 % 0.0-5.0 BASOPHIL % (test code=BA%) 0.2 % 0.0-1.0 NUCLEATED RBC % (test code=NRBC%) 0.0 % 0-0 NEUTROPHIL # (test code=NT#) 5.43 K/mm3 1.8-7.7 IMMATURE GRANULOCYTE # (test code=IG#) 0.03 x10 3/uL 0-0.03 LYMPHOCYTE # (test code=LY#) 1.29 K/mm3 1.0-5.0 MONOCYTE # (test code=MO#) 0.93 K/mm3 0-0.8 EOSINOPHIL # (test code=EO#) 0.34 K/mm3 0.0-0.5 BASOPHIL # (test code=BA#) 0.02 K/mm3 0.0-0.2 NUCLEATED RBC # (test code=NRBC#) 0.00 K/mm3 0.0-0.1 MANUAL DIFF REQUIRED (test code=MDIFF) NO, ONLY SCAN NEEDED DIFFERENTIAL [id number] 07:01:00* Test Item Value Reference Range Comments STAIN ACCEPTABILITY (test code=STN ACCEPTABLE) CABOT RINGS (test code=CAB) MORPHOLOGY COMMENT (test code=MOC) PLATELET ESTIMATE (test code=PLTEST) PLATELET MORPHOLOGY (test code=PLTMORPH) CBC W/AUTO [id number] 07:01:00* Test Item Value Reference Range Comments WHITE BLOOD CELL (test code=WBC) 8.0 K/mm3 4.5-12.5 RED BLOOD CELL (test code=RBC) 3.31 mill/mm3 3.7-5.2 HEMOGLOBIN (test code=HGB) 8.1 gram/dL 11.5-15.5 HEMATOCRIT (test code=HCT) 28.2 % 36.0-46.0 MEAN CELL VOLUME (test code=MCV) 85.2 fL 80-98 MEAN CELL HGB (test code=MCH) 24.5 picogram 27.0-33.0 MEAN CELL HGB CONCETRATION (test code=MCHC) 28.7 gram/dL 33.0-36.0 RED CELL DISTRIBUTION WIDTH (test code=RDW) 23.8 % 11.6-16.2 RED CELL DISTRIBUTION WIDTH SD (test code=RDW-SD) 72.9 fL 37.0-51.0 PLATELET COUNT (test code=PLT) 371 K/mm3 150-450 MEAN PLATELET VOLUME (test code=MPV) 10.1 fL 6.7-11.0 NEUTROPHIL % (test code=NT%) 67.6 % 39.0-69.0 IMMATURE GRANULOCYTE % (test code=IG%) 0.4 % 0.0-5.0 LYMPHOCYTE % (test code=LY%) 16.0 % 25.0-55.0 MONOCYTE % (test code=MO%) 11.6 % 0.0-10.0 EOSINOPHIL % (test code=EO%) 4.2 % 0.0-5.0 BASOPHIL % (test code=BA%) 0.2 % 0.0-1.0 NUCLEATED RBC % (test code=NRBC%) 0.0 % 0-0 NEUTROPHIL # (test code=NT#) 5.43 K/mm3 1.8-7.7 IMMATURE GRANULOCYTE # (test code=IG#) 0.03 x10 3/uL 0-0.03 LYMPHOCYTE # (test code=LY#) 1.29 K/mm3 1.0-5.0 MONOCYTE # (test code=MO#) 0.93 K/mm3 0-0.8 EOSINOPHIL # (test code=EO#) 0.34 K/mm3 0.0-0.5 BASOPHIL # (test code=BA#) 0.02 K/mm3 0.0-0.2 NUCLEATED RBC # (test code=NRBC#) 0.00 K/mm3 0.0-0.1 MANUAL DIFF REQUIRED (test code=MDIFF) NO, ONLY SCAN NEEDED DIFFERENTIAL [id number] 07:01:00* Test Item Value Reference Range Comments STAIN ACCEPTABILITY (test code=STN ACCEPTABLE) CABOT RINGS (test code=CAB) MORPHOLOGY COMMENT (test code=MOC) PLATELET ESTIMATE (test code=PLTEST) PLATELET MORPHOLOGY (test code=PLTMORPH) CBC W/AUTO [id number] 07:01:00* Test Item Value Reference Range Comments WHITE BLOOD CELL (test code=WBC) 8.0 K/mm3 4.5-12.5 RED BLOOD CELL (test code=RBC) 3.31 mill/mm3 3.7-5.2 HEMOGLOBIN (test code=HGB) 8.1 gram/dL 11.5-15.5 HEMATOCRIT (test code=HCT) 28.2 % 36.0-46.0 MEAN CELL VOLUME (test code=MCV) 85.2 fL 80-98 MEAN CELL HGB (test code=MCH) 24.5 picogram 27.0-33.0 MEAN CELL HGB CONCETRATION (test code=MCHC) 28.7 gram/dL 33.0-36.0 RED CELL DISTRIBUTION WIDTH (test code=RDW) 23.8 % 11.6-16.2 RED CELL DISTRIBUTION WIDTH SD (test code=RDW-SD) 72.9 fL 37.0-51.0 PLATELET COUNT (test code=PLT) 371 K/mm3 150-450 MEAN PLATELET VOLUME (test code=MPV) 10.1 fL 6.7-11.0 NEUTROPHIL % (test code=NT%) 67.6 % 39.0-69.0 IMMATURE GRANULOCYTE % (test code=IG%) 0.4 % 0.0-5.0 LYMPHOCYTE % (test code=LY%) 16.0 % 25.0-55.0 MONOCYTE % (test code=MO%) 11.6 % 0.0-10.0 EOSINOPHIL % (test code=EO%) 4.2 % 0.0-5.0 BASOPHIL % (test code=BA%) 0.2 % 0.0-1.0 NUCLEATED RBC % (test code=NRBC%) 0.0 % 0-0 NEUTROPHIL # (test code=NT#) 5.43 K/mm3 1.8-7.7 IMMATURE GRANULOCYTE # (test code=IG#) 0.03 x10 3/uL 0-0.03 LYMPHOCYTE # (test code=LY#) 1.29 K/mm3 1.0-5.0 MONOCYTE # (test code=MO#) 0.93 K/mm3 0-0.8 EOSINOPHIL # (test code=EO#) 0.34 K/mm3 0.0-0.5 BASOPHIL # (test code=BA#) 0.02 K/mm3 0.0-0.2 NUCLEATED RBC # (test code=NRBC#) 0.00 K/mm3 0.0-0.1 MANUAL DIFF REQUIRED (test code=MDIFF) NO, ONLY SCAN NEEDED DIFFERENTIAL [id number] 07:01:00* Test Item Value Reference Range Comments STAIN ACCEPTABILITY (test code=STN ACCEPTABLE) MORPHOLOGY COMMENT (test code=MOC) PLATELET ESTIMATE (test code=PLTEST) PLATELET MORPHOLOGY (test code=PLTMORPH) CBC W/AUTO [id number] 07:00:00* Test Item Value Reference Range Comments WHITE BLOOD CELL (test code=WBC) 8.0 K/mm3 4.5-12.5 RED BLOOD CELL (test code=RBC) 3.31 mill/mm3 3.7-5.2 HEMOGLOBIN (test code=HGB) 8.1 gram/dL 11.5-15.5 HEMATOCRIT (test code=HCT) 28.2 % 36.0-46.0 MEAN CELL VOLUME (test code=MCV) 85.2 fL 80-98 MEAN CELL HGB (test code=MCH) 24.5 picogram 27.0-33.0 MEAN CELL HGB CONCETRATION (test code=MCHC) 28.7 gram/dL 33.0-36.0 RED CELL DISTRIBUTION WIDTH (test code=RDW) 23.8 % 11.6-16.2 RED CELL DISTRIBUTION WIDTH SD (test code=RDW-SD) 72.9 fL 37.0-51.0 PLATELET COUNT (test code=PLT) 371 K/mm3 150-450 MEAN PLATELET VOLUME (test code=MPV) 10.1 fL 6.7-11.0 NEUTROPHIL % (test code=NT%) 67.6 % 39.0-69.0 IMMATURE GRANULOCYTE % (test code=IG%) 0.4 % 0.0-5.0 LYMPHOCYTE % (test code=LY%) 16.0 % 25.0-55.0 MONOCYTE % (test code=MO%) 11.6 % 0.0-10.0 EOSINOPHIL % (test code=EO%) 4.2 % 0.0-5.0 BASOPHIL % (test code=BA%) 0.2 % 0.0-1.0 NUCLEATED RBC % (test code=NRBC%) 0.0 % 0-0 NEUTROPHIL # (test code=NT#) 5.43 K/mm3 1.8-7.7 IMMATURE GRANULOCYTE # (test code=IG#) 0.03 x10 3/uL 0-0.03 LYMPHOCYTE # (test code=LY#) 1.29 K/mm3 1.0-5.0 MONOCYTE # (test code=MO#) 0.93 K/mm3 0-0.8 EOSINOPHIL # (test code=EO#) 0.34 K/mm3 0.0-0.5 BASOPHIL # (test code=BA#) 0.02 K/mm3 0.0-0.2 NUCLEATED RBC # (test code=NRBC#) 0.00 K/mm3 0.0-0.1 MANUAL DIFF REQUIRED (test code=MDIFF) NO, ONLY SCAN NEEDED DIFFERENTIAL [id number] 07:00:00* Test Item Value Reference Range Comments STAIN ACCEPTABILITY (test code=STN ACCEPTABLE) CABOT RINGS (test code=CAB) MORPHOLOGY COMMENT (test code=MOC) PLATELET ESTIMATE (test code=PLTEST) PLATELET MORPHOLOGY (test code=PLTMORPH) COMPREHENSIVE METABOLIC [id number] 06:44:00* Test Item Value Reference Range Comments SODIUM (test code=NA) 138 mmol/L 136-145 POTASSIUM (test code=K) 3.0 mmol/L 3.5-5.1 CHLORIDE (test code=CL) 94.0 mmol/L 98-107 CARBON DIOXIDE (test code=CO2) 39.0 mmol/L 21-32 ANION GAP (test code=GAP) 8.0 10-20 GLUCOSE (test code=GLU) 86 mg/dL 74-106 BLOOD UREA NITROGEN (test code=BUN) 25 mg/dL 7-18 GLOMERULAR FILTRATION RATE (test code=GFR) 48 mL/min >=60 Estimated GFR by using Modified MDRD formula.Chronic kidney disease is defined as either kidney damageor GFR <60 mL/min/1.73 m2 for >3 months. CREATININE (test code=CREAT) 1.10 mg/dL 0.55-1.02 Note change in reference range due to change in reagent. BUN/CREATININE RATIO (test code=BUN/CREA) 21.9 10-20 TOTAL PROTEIN (test code=PROT) 7.2 gram/dL 6.4-8.2 ALBUMIN (test code=ALB) 2.0 g/dL 3.4-5.0 GLOBULIN (test code=GLOB) 5.2 gram/dL 2.7-4.2 ALBUMIN/GLOBULIN RATIO (test code=A/G) 0.4 0.75-1.50 CALCIUM (test code=CA) 8.5 mg/dL 8.5-10.1 BILIRUBIN TOTAL (test code=BILT) 0.50 mg/dL 0.0-1.0 SGOT/AST (test code=AST) 10 IUnit/L 15-37 SGPT/ALT (test code=ALT) 11 IUnit/L 12-78 ALKALINE PHOSPHATASE TOTAL (test code=ALKP) 106 IUnit/L 45-117 Note change in reference range due to change in reagent. COMPREHENSIVE METABOLIC [id number] 06:33:00* Test Item Value Reference Range Comments SODIUM (test code=NA) 138 mmol/L 136-145 POTASSIUM (test code=K) 3.0 mmol/L 3.5-5.1 CHLORIDE (test code=CL) 94.0 mmol/L 98-107 CARBON DIOXIDE (test code=CO2) mmol/L 21-32 ANION GAP (test code=GAP) 10-20 GLUCOSE (test code=GLU) mg/dL 74-106 BLOOD UREA NITROGEN (test code=BUN) mg/dL 7-18 GLOMERULAR FILTRATION RATE (test code=GFR) mL/min >=60 CREATININE (test code=CREAT) mg/dL 0.55-1.02 BUN/CREATININE RATIO (test code=BUN/CREA) 10-20 TOTAL PROTEIN (test code=PROT) gram/dL 6.4-8.2 ALBUMIN (test code=ALB) g/dL 3.4-5.0 GLOBULIN (test code=GLOB) gram/dL 2.7-4.2 ALBUMIN/GLOBULIN RATIO (test code=A/G) 0.75-1.50 CALCIUM (test code=CA) mg/dL 8.5-10.1 BILIRUBIN TOTAL (test code=BILT) mg/dL 0.0-1.0 SGOT/AST (test code=AST) IUnit/L 15-37 SGPT/ALT (test code=ALT) IUnit/L 12-78 ALKALINE PHOSPHATASE TOTAL (test code=ALKP) IUnit/L 45-117 CBC W/AUTO [id number] 22:40:00* Test Item Value Reference Range Comments WHITE BLOOD CELL (test code=WBC) 9.4 K/mm3 4.5-12.5 RED BLOOD CELL (test code=RBC) 3.34 mill/mm3 3.7-5.2 HEMOGLOBIN (test code=HGB) 8.1 gram/dL 11.5-15.5 HEMATOCRIT (test code=HCT) 28.1 % 36.0-46.0 MEAN CELL VOLUME (test code=MCV) 84.1 fL 80-98 MEAN CELL HGB (test code=MCH) 24.3 picogram 27.0-33.0 MEAN CELL HGB CONCETRATION (test code=MCHC) 28.8 gram/dL 33.0-36.0 RED CELL DISTRIBUTION WIDTH (test code=RDW) 23.3 % 11.6-16.2 RED CELL DISTRIBUTION WIDTH SD (test code=RDW-SD) 69.5 fL 37.0-51.0 PLATELET COUNT (test code=PLT) 348 K/mm3 150-450 MEAN PLATELET VOLUME (test code=MPV) 9.8 fL 6.7-11.0 NEUTROPHIL % (test code=NT%) 71.6 % 39.0-69.0 IMMATURE GRANULOCYTE % (test code=IG%) 0.4 % 0.0-5.0 LYMPHOCYTE % (test code=LY%) 12.6 % 25.0-55.0 MONOCYTE % (test code=MO%) 10.9 % 0.0-10.0 EOSINOPHIL % (test code=EO%) 4.1 % 0.0-5.0 BASOPHIL % (test code=BA%) 0.4 % 0.0-1.0 NUCLEATED RBC % (test code=NRBC%) 0.0 % 0-0 NEUTROPHIL # (test code=NT#) 6.73 K/mm3 1.8-7.7 IMMATURE GRANULOCYTE # (test code=IG#) 0.04 x10 3/uL 0-0.03 LYMPHOCYTE # (test code=LY#) 1.18 K/mm3 1.0-5.0 MONOCYTE # (test code=MO#) 1.02 K/mm3 0-0.8 EOSINOPHIL # (test code=EO#) 0.39 K/mm3 0.0-0.5 BASOPHIL # (test code=BA#) 0.04 K/mm3 0.0-0.2 NUCLEATED RBC # (test code=NRBC#) 0.00 K/mm3 0.0-0.1 MANUAL DIFF REQUIRED (test code=MDIFF) NO, ONLY SCAN NEEDED DIFFERENTIAL [id number] 22:40:00* Test Item Value Reference Range Comments STAIN ACCEPTABILITY (test code=STN ACCEPTABLE) STAIN ACCEPTABLE HYPOCHROMIA (test code=HYPO) 2+ POIKILOCYTOSIS (test code=POIK) 1+ ANISOCYTOSIS (test code=ANISO) 1+ OVALOCYTES (test code=OVAL) 1+ PLATELET ESTIMATE (test code=PLTEST) ADEQUATE PLATELET MORPHOLOGY (test code=PLTMORPH) NORMAL CBC W/AUTO [id number] 22:09:00* Test Item Value Reference Range Comments WHITE BLOOD CELL (test code=WBC) 9.4 K/mm3 4.5-12.5 RED BLOOD CELL (test code=RBC) 3.34 mill/mm3 3.7-5.2 HEMOGLOBIN (test code=HGB) 8.1 gram/dL 11.5-15.5 HEMATOCRIT (test code=HCT) 28.1 % 36.0-46.0 MEAN CELL VOLUME (test code=MCV) 84.1 fL 80-98 MEAN CELL HGB (test code=MCH) 24.3 picogram 27.0-33.0 MEAN CELL HGB CONCETRATION (test code=MCHC) 28.8 gram/dL 33.0-36.0 RED CELL DISTRIBUTION WIDTH (test code=RDW) 23.3 % 11.6-16.2 RED CELL DISTRIBUTION WIDTH SD (test code=RDW-SD) 69.5 fL 37.0-51.0 PLATELET COUNT (test code=PLT) 348 K/mm3 150-450 MEAN PLATELET VOLUME (test code=MPV) 9.8 fL 6.7-11.0 NEUTROPHIL % (test code=NT%) 71.6 % 39.0-69.0 IMMATURE GRANULOCYTE % (test code=IG%) 0.4 % 0.0-5.0 LYMPHOCYTE % (test code=LY%) 12.6 % 25.0-55.0 MONOCYTE % (test code=MO%) 10.9 % 0.0-10.0 EOSINOPHIL % (test code=EO%) 4.1 % 0.0-5.0 BASOPHIL % (test code=BA%) 0.4 % 0.0-1.0 NUCLEATED RBC % (test code=NRBC%) 0.0 % 0-0 NEUTROPHIL # (test code=NT#) 6.73 K/mm3 1.8-7.7 IMMATURE GRANULOCYTE # (test code=IG#) 0.04 x10 3/uL 0-0.03 LYMPHOCYTE # (test code=LY#) 1.18 K/mm3 1.0-5.0 MONOCYTE # (test code=MO#) 1.02 K/mm3 0-0.8 EOSINOPHIL # (test code=EO#) 0.39 K/mm3 0.0-0.5 BASOPHIL # (test code=BA#) 0.04 K/mm3 0.0-0.2 NUCLEATED RBC # (test code=NRBC#) 0.00 K/mm3 0.0-0.1 MANUAL DIFF REQUIRED (test code=MDIFF) NO, ONLY SCAN NEEDED DIFFERENTIAL [id number] 22:09:00* Test Item Value Reference Range Comments STAIN ACCEPTABILITY (test code=STN ACCEPTABLE) CABOT RINGS (test code=CAB) MORPHOLOGY COMMENT (test code=MOC) PLATELET ESTIMATE (test code=PLTEST) PLATELET MORPHOLOGY (test code=PLTMORPH) CBC W/AUTO [id number] 22:09:00* Test Item Value Reference Range Comments WHITE BLOOD CELL (test code=WBC) 9.4 K/mm3 4.5-12.5 RED BLOOD CELL (test code=RBC) 3.34 mill/mm3 3.7-5.2 HEMOGLOBIN (test code=HGB) 8.1 gram/dL 11.5-15.5 HEMATOCRIT (test code=HCT) 28.1 % 36.0-46.0 MEAN CELL VOLUME (test code=MCV) 84.1 fL 80-98 MEAN CELL HGB (test code=MCH) 24.3 picogram 27.0-33.0 MEAN CELL HGB CONCETRATION (test code=MCHC) 28.8 gram/dL 33.0-36.0 RED CELL DISTRIBUTION WIDTH (test code=RDW) 23.3 % 11.6-16.2 RED CELL DISTRIBUTION WIDTH SD (test code=RDW-SD) 69.5 fL 37.0-51.0 PLATELET COUNT (test code=PLT) 348 K/mm3 150-450 MEAN PLATELET VOLUME (test code=MPV) 9.8 fL 6.7-11.0 NEUTROPHIL % (test code=NT%) 71.6 % 39.0-69.0 IMMATURE GRANULOCYTE % (test code=IG%) 0.4 % 0.0-5.0 LYMPHOCYTE % (test code=LY%) 12.6 % 25.0-55.0 MONOCYTE % (test code=MO%) 10.9 % 0.0-10.0 EOSINOPHIL % (test code=EO%) 4.1 % 0.0-5.0 BASOPHIL % (test code=BA%) 0.4 % 0.0-1.0 NUCLEATED RBC % (test code=NRBC%) 0.0 % 0-0 NEUTROPHIL # (test code=NT#) 6.73 K/mm3 1.8-7.7 IMMATURE GRANULOCYTE # (test code=IG#) 0.04 x10 3/uL 0-0.03 LYMPHOCYTE # (test code=LY#) 1.18 K/mm3 1.0-5.0 MONOCYTE # (test code=MO#) 1.02 K/mm3 0-0.8 EOSINOPHIL # (test code=EO#) 0.39 K/mm3 0.0-0.5 BASOPHIL # (test code=BA#) 0.04 K/mm3 0.0-0.2 NUCLEATED RBC # (test code=NRBC#) 0.00 K/mm3 0.0-0.1 MANUAL DIFF REQUIRED (test code=MDIFF) NO, ONLY SCAN NEEDED DIFFERENTIAL [id number] 22:09:00* Test Item Value Reference Range Comments STAIN ACCEPTABILITY (test code=STN ACCEPTABLE) CABOT RINGS (test code=CAB) MORPHOLOGY COMMENT (test code=MOC) PLATELET ESTIMATE (test code=PLTEST) PLATELET MORPHOLOGY (test code=PLTMORPH) CBC W/AUTO [id number] 22:09:00* Test Item Value Reference Range Comments WHITE BLOOD CELL (test code=WBC) 9.4 K/mm3 4.5-12.5 RED BLOOD CELL (test code=RBC) 3.34 mill/mm3 3.7-5.2 HEMOGLOBIN (test code=HGB) 8.1 gram/dL 11.5-15.5 HEMATOCRIT (test code=HCT) 28.1 % 36.0-46.0 MEAN CELL VOLUME (test code=MCV) 84.1 fL 80-98 MEAN CELL HGB (test code=MCH) 24.3 picogram 27.0-33.0 MEAN CELL HGB CONCETRATION (test code=MCHC) 28.8 gram/dL 33.0-36.0 RED CELL DISTRIBUTION WIDTH (test code=RDW) 23.3 % 11.6-16.2 RED CELL DISTRIBUTION WIDTH SD (test code=RDW-SD) 69.5 fL 37.0-51.0 PLATELET COUNT (test code=PLT) 348 K/mm3 150-450 MEAN PLATELET VOLUME (test code=MPV) 9.8 fL 6.7-11.0 NEUTROPHIL % (test code=NT%) 71.6 % 39.0-69.0 IMMATURE GRANULOCYTE % (test code=IG%) 0.4 % 0.0-5.0 LYMPHOCYTE % (test code=LY%) 12.6 % 25.0-55.0 MONOCYTE % (test code=MO%) 10.9 % 0.0-10.0 EOSINOPHIL % (test code=EO%) 4.1 % 0.0-5.0 BASOPHIL % (test code=BA%) 0.4 % 0.0-1.0 NUCLEATED RBC % (test code=NRBC%) 0.0 % 0-0 NEUTROPHIL # (test code=NT#) 6.73 K/mm3 1.8-7.7 IMMATURE GRANULOCYTE # (test code=IG#) 0.04 x10 3/uL 0-0.03 LYMPHOCYTE # (test code=LY#) 1.18 K/mm3 1.0-5.0 MONOCYTE # (test code=MO#) 1.02 K/mm3 0-0.8 EOSINOPHIL # (test code=EO#) 0.39 K/mm3 0.0-0.5 BASOPHIL # (test code=BA#) 0.04 K/mm3 0.0-0.2 NUCLEATED RBC # (test code=NRBC#) 0.00 K/mm3 0.0-0.1 MANUAL DIFF REQUIRED (test code=MDIFF) NO, ONLY SCAN NEEDED DIFFERENTIAL [id number] 22:09:00* Test Item Value Reference Range Comments STAIN ACCEPTABILITY (test code=STN ACCEPTABLE) MORPHOLOGY COMMENT (test code=MOC) PLATELET ESTIMATE (test code=PLTEST) PLATELET MORPHOLOGY (test code=PLTMORPH) CBC W/AUTO [id number] 22:09:00* Test Item Value Reference Range Comments WHITE BLOOD CELL (test code=WBC) 9.4 K/mm3 4.5-12.5 RED BLOOD CELL (test code=RBC) 3.34 mill/mm3 3.7-5.2 HEMOGLOBIN (test code=HGB) 8.1 gram/dL 11.5-15.5 HEMATOCRIT (test code=HCT) 28.1 % 36.0-46.0 MEAN CELL VOLUME (test code=MCV) 84.1 fL 80-98 MEAN CELL HGB (test code=MCH) 24.3 picogram 27.0-33.0 MEAN CELL HGB CONCETRATION (test code=MCHC) 28.8 gram/dL 33.0-36.0 RED CELL DISTRIBUTION WIDTH (test code=RDW) 23.3 % 11.6-16.2 RED CELL DISTRIBUTION WIDTH SD (test code=RDW-SD) 69.5 fL 37.0-51.0 PLATELET COUNT (test code=PLT) 348 K/mm3 150-450 MEAN PLATELET VOLUME (test code=MPV) 9.8 fL 6.7-11.0 NEUTROPHIL % (test code=NT%) 71.6 % 39.0-69.0 IMMATURE GRANULOCYTE % (test code=IG%) 0.4 % 0.0-5.0 LYMPHOCYTE % (test code=LY%) 12.6 % 25.0-55.0 MONOCYTE % (test code=MO%) 10.9 % 0.0-10.0 EOSINOPHIL % (test code=EO%) 4.1 % 0.0-5.0 BASOPHIL % (test code=BA%) 0.4 % 0.0-1.0 NUCLEATED RBC % (test code=NRBC%) 0.0 % 0-0 NEUTROPHIL # (test code=NT#) 6.73 K/mm3 1.8-7.7 IMMATURE GRANULOCYTE # (test code=IG#) 0.04 x10 3/uL 0-0.03 LYMPHOCYTE # (test code=LY#) 1.18 K/mm3 1.0-5.0 MONOCYTE # (test code=MO#) 1.02 K/mm3 0-0.8 EOSINOPHIL # (test code=EO#) 0.39 K/mm3 0.0-0.5 BASOPHIL # (test code=BA#) 0.04 K/mm3 0.0-0.2 NUCLEATED RBC # (test code=NRBC#) 0.00 K/mm3 0.0-0.1 MANUAL DIFF REQUIRED (test code=MDIFF) NO, ONLY SCAN NEEDED DIFFERENTIAL [id number] 22:09:00* Test Item Value Reference Range Comments STAIN ACCEPTABILITY (test code=STN ACCEPTABLE) CABOT RINGS (test code=CAB) MORPHOLOGY COMMENT (test code=MOC) PLATELET ESTIMATE (test code=PLTEST) PLATELET MORPHOLOGY (test code=PLTMORPH) - XR CHEST 2 [id number] 16:04:00 FAX: Jatin Win [phone] [place]: St: ADM Name: DARSHAN LEBLANC [facility] : [birth year] Age/S: 78/F [address] [facility] Unit #: [id number] Loc: V.3092 [place] [address] Phys: Jatin Bhakta ng DO Acct: [id number] Dis Date: Status: ADM IN PHONE #: [phone] Exam Date: 07/15/2018 1550 FAX #: [phone] Reason: sob and o2 dependancy EXAMS: CPT CODE: [id number] XR CHEST 2 V 36505 CLINICAL HISTORY: Shortness of breath and o2 dependancy TECHNIQUE: AP chest x-ray COMP ARISON: 07/11/18 IMPRESSION: Slightly improved bilateral airspace and interstitial opacities. No pleural effusion. Card iomegaly. Atherosclerotic vascular calcification of the thoracic aorta. at 1604 Reported and signed by: Cris Kumar D.O. CC: Jatin Bhakta DO Technologist: Shara valle; CHELSEA MITCHELL RT (R) Trnscrd Date/Time/By: ([id number]) : By: [email or web address] Orig Print D/T: S: 07/15/2018 (1260) PAGE 1 Signed Report CHEST 2 VIEWS [place] [address] Patient Name: DARSHAN ARAGON MR #: [id number] : 1940 Age/Sex: 77/F Req #: [id number] Adm Physician: Ordered by: HAYDER HARDIN MD Report #: [id number] Location: ER Room/Bed: Procedure: [id number] DX/CHEST 2 VIEWS Exa m Date: 08/21/17 Exam Time: 1350 REPORT STATUS: Signed PROCEDURE: Frontal and lateral views of the chest. COMPARISON: 01/12/17 INDICATIONS: SHORTNESS OF BREATH FINDINGS: Lines/t ubes: None. Lungs: Limited by body habitus. Pulmonary vascular congestio n and mild interstitial edema. Pleura: There is no significant pleural effusion or pneumothorax. Heart and mediastinum: Enlarged cardiomediasti nal silhouette. Bones: Generalized demineralization limits evaluation. U pper lumbar spine vertebral body compression deformity of indeterminant age. IMPRESSION: Limited by body habitus. Enlarged cardiomediastin al silhouette, pulmonary vascular congestion, and mild interstitial edema. Dictated by: Tai Campa M.D. on 08/21/2017 at 14:37 Electronically approved by: Tai Campa M.D. on 08/21/2017 at 14:37 Dict ated By: TAI CAMPA MD 1437 COPY TO: HAYDER HARDIN MD
--- NOTE | 2019-01-29 18:42 | Diagnostic Imaging Report ---
History: Fall, pain Comparison studies:None Technique: Axial images were obtained from the brain and cervical spine. Coronal and sagittal images reconstructed from the axial data. Intravenous contrast: None Dose modulation, iterative reconstruction, and/or weight based adjustment of the mA/kV was utilized to reduce the radiation dose to as low as reasonably achievable. Findings: Head CT: Scalp/skull: No abnormalities. No fractures, blastic or lytic lesions. Brain sulci: Moderately prominent. Ventricles: Mildly prominent. No hydrocephalus. Extra-axial spaces: No masses. No fluid collections. Parenchyma: Scattered hypodensities of the periventricular and deep white matter, nonspecific and most commonly seen with moderate chronic microvascular ischemic changes. Small chronic bilateral striatocapsular lacunar infarcts. No masses, hemorrhage, acute or chronic cortical vascular insults. Sellar/suprasellar region: No abnormalities. Craniocervical junction: Patent foramen magnum. No Chiari one malformation. Atherosclerotic calcifications of the carotid siphons. Partial opacification of the left mastoid air cells. Cervical spine CT: Fractures: None. Soft tissues: No gross abnormalities. Atlantoaxial articulation: Mild degenerative changes without acute abnormality. Alignment: Straightening of the normal lordosis. No scoliosis. Cervicomedullary junction: No abnormalities. Patent foramen magnum. Vertebrae: No infection or neoplasm. Degenerative changes: Decreased intervertebral space and endplate sclerosis at C4-5. Mild to moderate degenerative foraminal narrowing at C4-5 bilaterally and C5-6 on the right. No other significant (moderate or severe) canal stenosis or foraminal narrowing. Incidental findings: Atherosclerotic calcifications of the carotid bulbs. Impression: Head CT: 1. No acute abnormality. Cervical spine CT: 1. No acute abnormalities. 2. Cannot exclude ligament, spinal cord and or vascular abnormalities on the basis of this examination. Signed by: DR Norberto Astudillo M.D. on 01/29/2019 6:39 PM
--- NOTE | 2019-01-29 18:56 | Diagnostic Imaging Report ---
Exam: Left ankle 3 views History: Pain Comparison: None. Findings: No acute fracture. Osseous fusion of the distal tibiofibular, ankle, subtalar joints. Impression: No acute osseous abnormality Ankylosis of the ankle and hindfoot Signed by: Dr. Michelet Brown M.D. on 01/29/2019 6:52 PM
--- NOTE | 2019-01-29 18:58 | Diagnostic Imaging Report ---
Exam: AP pelvis History: Pain Comparison: None. Findings: No fracture or malalignment. Partially visualized hardware in the left femur. Bone demineralization. Impression: No displaced fracture Signed by: Dr. Michelet Brown M.D. on 01/29/2019 6:54 PM
--- NOTE | 2019-01-29 18:59 | Diagnostic Imaging Report ---
Exam: Lumbar spine History: Back pain Comparison: None. Findings: Limited evaluation due to severe bone demineralization. Multilevel degenerative disc disease. Leftward lumbar curvature. Chronic appearing wedging at the thoracolumbar junction. Impression: Advanced lumbar spondylosis. Signed by: Dr. Michelet Brown M.D. on 01/29/2019 6:56 PM
[2019-01-29] MEDS ORDERED: ACETAMINOPHEN 325 MG TAB PO ONE (19:30)
--- NOTE | 2019-01-29 22:19 | Diagnostic Imaging Report ---
LEFT FEMUR RADIOGRAPHS 4 VIEWS. HISTORY: Pain. COMPARISON: None available. FINDINGS: Bones: The left femoral neck fixation screw and left femoral plate and screw fixation constructs are intact. Partially visualized proximal tibia plate and screw fixation hardware is intact. Patellar fixation wire and screws appear intact. Normal osseous alignment. Marked low bone mass of the femur and tibia and fibula. Evidence of healing of a femoral fracture and rock small tibial fracture. Osseous alignment is within normal limits. Joints: Degenerative changes and remodeling in the knee. Normal alignment of the left hip and knee. Soft tissues: A thin curvilinear 1.4 cm long wire-like metallic density in the lateral left thigh soft tissues. IMPRESSION: Extensive left femoral and proximal tibial and patellar fixation hardware appears intact. No acute displaced fracture. Normal osseous alignment. Marked osteopenia of the femur and included proximal tibia and fibula. Signed by: Alonso Guevara DO on 01/29/2019 10:15 PM
== END 2019-01-30 00:05 | disposition home or self-care (01) ==
LOC: ER 17:16
DX: S00.83XA Contusion of other part of head, initial encounter (principal); M54.2 Cervicalgia; M54.5 Low back pain; S70.12XA Contusion of left thigh, initial encounter; M25.572 Pain in left ankle and joints of left foot; W18.2XXA Fall in (into) shower or empty bathtub, initial encounter; Y93.E1 Activity, personal bathing and showering; Y92.002 Bathroom of unspecified non-institutional (private) residence as the place of occurrence of the external cause; I10 Essential (primary) hypertension; E11.9 Type 2 diabetes mellitus without complications; I50.9 Heart failure, unspecified; J44.9 Chronic obstructive pulmonary disease, unspecified; I25.10 Atherosclerotic heart disease of native coronary artery without angina pectoris; M47.896 Other spondylosis, lumbar region; Z86.12 Personal history of poliomyelitis
CPT/HCPCS: 70450; 72110; 72125; 72170; 99284